=== PATIENT | male | born 1935 | race Caucasian/White ===

== ENCOUNTER → 2016-07-16 | Outpatient (CLI) | payer MEDICARE, BC ==
--- NOTE | 2016-07-16 15:27 | MR ---
EXAMINATION TYPE: MR knee RT wo con DATE OF EXAM: 07/16/2016 11:30 AM COMPARISON: Plain film May 2016 HISTORY: Right knee pain,twisted TECHNIQUE: Multiplanar, multisequence imaging of the right knee is performed without IV contrast. FINDINGS: MEDIAL MENISCUS: Linear increased signal within the posterior horn of the medial meniscus extends to the articular surface. LATERAL MENISCUS: Linear increased signal within the posterior horn of the lateral meniscus also susp ected to extend to the articular surface. CRUCIATE LIGAMENTS: The anterior and posterior cruciate ligaments are intact and unremarkable. COLLATERAL LIGAMENTS: The medial collateral ligament and lateral collateral ligament complex are inta ct and unremarkable. Increased signal present along the medial collateral ligament could be indicativ e of some local strain, suspect there is meniscocapsular separation present, some fluid signal presen t between the meniscus and the medial collateral ligament could possibly represent a meniscal cyst. EXTENSOR MECHANISM: Visualized quadriceps and patellar tendons are intact. EFFUSION: Small joint effusion POPLITEAL CYST: Semimembranosus gastrocnemius cyst is present measuring approximately 3 cm x 1.8 cm x 1 cm. TRICOMPARTMENT SPACES: Osteoarthritic changes are present, there is tricompartmental marginal spurrin g. 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 OTHER: No additional significant abnormality is appreciated. IMPRESSION: Osteoarthritic change. Tears of the medial and lateral meniscus, there may be meniscal cyst medially versus meniscocapsular separation. Additional findings above.
== END | disposition home or self-care (01) ==
LOC: RADMRIMAIN 10:28
PROVIDERS: ATTEND Orthopaedic Surgery
DX: M17.11 Unilateral primary osteoarthritis, right knee (principal); S83.281A Other tear of lateral meniscus, current injury, right knee, initial encounter; S83.241A Other tear of medial meniscus, current injury, right knee, initial encounter

== ENCOUNTER 2016-08-05 06:37 | Day surgery (SDC) | payer MEDICARE, BC ==
[2016-08-03 08:47] VITALS: BMI 29.5
--- NOTE | 2016-08-04 09:20 | HP ---
DATE OF ADMISSION: CHIEF COMPLAINT: Right knee pain. HISTORY OF PRESENT ILLNESS: The patient is an 81-year-old retired gentleman who presents with progressive right knee pain after a previous twisting injury. He has giving way along with stiffness and pain. He has tried medications and an injection with only partial temporary relief. He notes he is significantly limited. PAST MEDICAL HISTORY: Significant for hypercholesterolemia, reflux disease, testicular cancer, aortic aneurysm, macular degeneration. PAST SURGICAL HISTORY: Significant for previous appendectomy in addition to Byrne's cyst resection. CURRENT MEDICATIONS: 1. Simvastatin. 2. Prilosec. 3. Ventolin. 4. Advair. 5. Aspirin. He denies drug allergies. Family history is negative. SOCIAL HISTORY: Significant for social alcohol use. Sixteen-point review of systems otherwise reviewed and is noncontributory. On examination, the patient is approximately 5 feet 8 inches, 200 pounds of mesomorphic habitus. HEENT exam is nonfocal. Neck is supple. He has painless passive motion of the right hip. Straight leg raise is negative. Active motion of the right knee -6 to 135 degrees of flexion. He has a mild effusion. Collaterals are stable, John Paul's negative, Ministerio's elicits medial pain. He is tender about the medial and lateral joint line. His distal neurovascular exam appears to be intact in the right lower extremity. MRI report for the right knee shows evidence of medial and lateral meniscal tears along with medial and patellofemoral compartment osteoarthrosis. IMPRESSION: 1. Right knee internal derangement with medial and lateral meniscal tears, symptomatic. 2. 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 RECOMMENDATIONS: I talked to the patient at length regarding his treatment options. At this point he is having persistent pain and mechanical symptoms despite conservative measures. After thorough discussion of his options, he opts to proceed with surgery. We will plan to proceed with arthroscopic evaluation with possible partial medial and lateral meniscectomies. Risks and benefits are discussed at length in layman terms. We will likely perform that as an outpatient procedure.
[~2016-08-05 06:37] MED LIST: HYDROmorphone 1 MG/ML 1 ML SYRINGE IVP PRN; LACTATED RINGERS 1,000 ML IV SCH; MIDAZOLAM 2 MG/2 ML VIAL IV PRN; ONDANSETRON 4 MG/2 ML VIAL IVP ONE; ceFAZolin 2 GM in SODIUM CHLORIDE 0.9% 100 ML IVPB ONE
[2016-08-05] MEDS ORDERED: LIDOCAINE 1% 20 ML VIAL (10MG/ML) FOR IV START INTRADERMA ONE (06:50)
[2016-08-05 06:57] VITALS: RESP 16
[2016-08-05 07:30] LABS: INR 1.1 (<1.1); Partial Thromboplastin Time 23.2 sec (22.0-30.0); Prothrombin Time 10.7 sec (9.0-12.0)
[2016-08-05] MEDS ORDERED: LIDOCAINE 1% INJ 10MG/ML (20 ML MDV) ONE (07:54)
[2016-08-05] MEDS ORDERED: fentaNYL (PF) 50 MCG/ML 2 ML AMP ONE (07:54)
[2016-08-05] MEDS ORDERED: PROPOFOL 10 MG/ML 20 ML VIAL IV ONE (07:54)
[2016-08-05] MEDS ORDERED: NEOSTIGMINE 1 MG/ML 10 ML VIAL ONE (07:54)
[2016-08-05] MEDS ORDERED: EPINEPHrine (PF) 1 ML in SODIUM CHLORIDE 0.9% IRRIGATIO 3,000 ML IRRIGATION ONE (07:54)
[2016-08-05] MEDS ORDERED: GLYCOPYRROLATE 0.2 MG/ML 2 ML VIAL ONE (07:54)
[2016-08-05] MEDS ORDERED: ROCURONIUM BROMIDE 10 MG/ML 10 ML VIAL IV ONE (07:54)
[2016-08-05] MEDS ORDERED: SUCCINYLCHOLINE CHLORIDE 100 MG/5 ML SYR IV ONE (07:54)
[2016-08-05] MEDS ORDERED: MIDAZOLAM 2 MG/2 ML VIAL ONE (07:54)
--- NOTE | 2016-08-05 08:44 | P.OP ---
Date of Procedure: 08/05/16 Preoperative Diagnosis: Right knee internal derangement Postoperative Diagnosis: Right knee posterior medial meniscal tear/posterior lateral meniscal tear/loose body intercondylar notch 1 x 1 cm/reactive synovitis of the medial and lateral compartments Procedure(s) Performed: Right knee arthroscopic partial medial meniscectomy/partial lateral meniscectomy /loose body removal intercondylar notch/partial synovectomy of the medial and lateral compartments Anesthesia: RADU Surgeon: Edilson Sherman Pathology: none sent Condition: stable Disposition: PACU Indications for Procedure: The patient is an 81-year-old male who presents with progressive right knee pain and mechanical symptoms after previous twisting injury despite conservative measures. He is having persistent symptoms it limited his normal function and activities. He discussion of the risks and benefits of operative intervention versus continued conservative measures was made with the patient. He opted to proceed with surgery. Operative risks to include infection, neurovascular injury, development of blood clots, incomplete resolution of symptoms, possible worsening symptoms and need for subsequent procedures was discussed. Informed consent was obtained. Operative Findings: As below Description of Procedure: The patient was brought to the operating room, and after induction of general anesthesia I examined the right knee. Collaterals were stable, John Paul was negative, and posterior drawer was negative. The right lower extremity was prepped and draped in a normal fashion. A superior lateral portal was made through a 3 mm skin incision superior and lateral to the patella. This was used for outflow. A moderate effusion was encountered. A lateral portal was made through a 5 mm skin incision above the joint line lateral to the patella tendon. Diagnostic arthroscopy was performed. A medial portal was made through a similar incision medial to the patellar tendon above the joint line. On inspection of the medial compartment, he is noted of complex tear involving the posterior horn of the medial meniscus in the white-white junction. This was not amenable to repair. This was debrided back to stable base with straight baskets and a motorized shaver. Grade 3 chondral changes were noted diffusely involving the medial tibial plateau and medial distal femur. Reactive synovitis involving into medial compartment was debrided with a motorized shaver. On inspection of the notch, the anterior cruciate ligament appeared to be intact. There was a loose body adherent to the posterior cruciate ligament measuring 1 x 1 cm. This was debrided with motorized shaver and then removed with a grasper. On inspection of the lateral compartment, and oblique tear of the posterior horn of the lateral meniscus was noted in the white-white junction. This was debrided back to stable base with straight baskets and a motorized shaver. Reactive synovitis involving anterolateral compartment was debrided with motorized shaver. On inspection the patellofemoral articulation, there was chondral fibrillation and degenerative changes however no loose chondral fragments. The gutters were clear debris. The knee was then thoroughly irrigated. The portals were closed with Steri- Strips. A sterile dressing was applied in addition to a compression stocking. The patient was awoken from general anesthesia and transferred to the recovery room in good condition. Blood loss was estimated at 10 mL. No complications were incurred.
[2016-08-05 08:49] VITALS: TEMP 98.8
[2016-08-05 10:27] VITALS: BP 130/80; PULSE 69
== END 2016-08-05 10:59 | disposition home or self-care (01) ==
LOC: OR 06:37
PROVIDERS: ATTEND Orthopaedic Surgery
DX: S83.241A Other tear of medial meniscus, current injury, right knee, initial encounter (principal); S83.281A Other tear of lateral meniscus, current injury, right knee, initial encounter; X50.1XXA Overexertion from prolonged static or awkward postures, initial encounter; M23.41 Loose body in knee, right knee; M65.861 Other synovitis and tenosynovitis, right lower leg; J44.9 Chronic obstructive pulmonary disease, unspecified; Z79.82 Long term (current) use of aspirin; Z79.899 Other long term (current) drug therapy; E78.5 Hyperlipidemia, unspecified; Z79.51 Long term (current) use of inhaled steroids; E78.00 Pure hypercholesterolemia, unspecified; K21.9 Gastro-esophageal reflux disease without esophagitis
CPT/HCPCS: 85610; 85730; 29880; J2250; J2710; J0690; J2405; J0171; J2001; J3010; J0330; J2704

== ENCOUNTER 2017-06-29 12:42 | Observation (INO) | payer MEDICARE, BC ==
[2017-06-29] MEDS ORDERED: ASPIRIN 81 MG PO STA (13:12)
--- NOTE | 2017-06-29 13:15 | ED ---
General Adult HPI - General Chief complaint: Chest Pain Stated complaint: Chest Pain Time Seen by Provider: 06/29/17 13:02 Source: patient, family, RN notes reviewed Mode of arrival: wheelchair Limitations: no limitations - History of Present Illness Initial comments: Patient 82-year-old male who presents emergency room today with a chief complaint of left-sided chest pain. He states he feels pain when he takes deep breath or when he moves his left shoulder above his head. Patient states that he never had pain similar to in the past. Denies any injury or trauma. He states that sitting resting he has no pain. He denies any other complaints or symptoms. Patient denies any recent fever, chills, shortness of breath, back pain, abdominal pain, nausea or vomiting, numbness or tingling, dysuria or hematuria, constipation or diarrhea, headaches or visual changes, or any other complaints. - Related Data Home Medications Medication Instructions Recorded Confirmed Cholecalciferol [Vitamin D3] 2,000 unit PO HS 09/11/15 06/29/17 [place]-3 Fatty Acids/Fish Oil [Fish 1 cap PO HS 09/11/15 06/29/17 Oil 1,000 mg Softgel] Albuterol Inhaler [Ventolin Hfa 1 - 2 puff INHALATION RT-BID PRN 08/05/16 Inhaler] Fluticasone/Salmeterol [Advair 2 puff INHALATION RT-BID PRN 04/22/17 06/29/17 250-50 Diskus] Multivitamins, Thera [Multivitamin 1 tab PO HS 04/22/17 06/29/17 (formulary)] Vits A,C,E/Lutein/Minerals 1 tab PO HS 04/22/17 06/29/17 [Ocuvite with Lutein Tablet] Allergies Allergy/AdvReac Type Severity Reaction Status Date / Time No Known Allergies Allergy Verified 06/29/17 13:25 Review of Systems ROS Statement: Those systems with pertinent positive or pertinent negative responses have been documented in the HPI. ROS Other: All systems not noted in ROS Statement are negative. Past Medical History Past Medical History: Eye Disorder, GERD/Reflux, Hearing Disorder / Deafness, Skin Disorder Additional Past Medical History / Comment(s): mac degeneration, long ago hx. anemia, sinus problems, wart/skin tag/mole removal History of Any Multi-Drug Resistant Organisms: None Reported Past Surgical History: Appendectomy Additional Past Surgical History / Comment(s): deviated septum repair, bakers cyst removed, appy. done 10-01-15, knee scope Past Anesthesia/Blood Transfusion Reactions: No Reported Reaction Past Psychological History: No Psychological Hx Reported Smoking Status: Never smoker Past Alcohol Use History: None Reported Past Drug Use History: None Reported - Past Family History Father History Unknown: Yes Mother History Unknown: Yes Family Medical History: No Reported History General Exam - General Exam Comments Initial Comments: General: The patient is awake and alert, in no distress, and does not appear acutely ill. Eye: Pupils are equal, round and reactive to light, extra-ocular movements are intact. No nystagmus. There is normal conjunctiva bilaterally. No signs of icterus. Ears, nose, mouth and throat: There are moist mucous membranes and no oral lesions. Neck: The neck is supple, there is no tenderness or JVD. Cardiovascular: There is a regular rate and rhythm. No murmur, rub or gallop is appreciated. Respiratory: Lungs are clear to auscultation, respirations are non-labored, breath sounds are equal. No wheezes, stridor, rales, or rhonchi. Gastrointestinal: Soft, non-distended, non-tender abdomen without masses or organomegaly noted. There is no rebound or guarding present. No CVA tenderness. Bowel sounds are unremarkable. Musculoskeletal: Normal ROM, no tenderness. Strength 5/5. Sensation intact. Pulses equal bilaterally 2+. Neurological: A&O x 3. CN II-XII intact, There are no obvious motor or sensory deficits. Coordination appears grossly intact. Speech is normal. Skin: Skin is warm and dry and no rashes or lesions are noted. Psychiatric: Cooperative, appropriate mood & affect, normal judgment. Limitations: no limitations Course Vital Signs 06/29/17 06/29/17 12:43 13:41 Temperature 97.7 F Pulse Rate 65 62 Respiratory 16 18 Rate Blood Pressure 174/103 136/82 O2 Sat by Pulse 98 99 Oximetry Medical Decision Making - Medical Decision Making Patient's labs reviewed here in emergency room are unremarkable. Negative cardiac enzymes. Patient states that symptoms started this morning. Currently pain-free breath times he states he does take a deep breath and feels pain in the left side of the chest wall. Options were discussed with patient about admission. He states he is willing to stay in for serial enzymes. Patient will be admitted. - Lab Data Result diagrams: 06/29/17 13:48 06/29/17 13:48 Lab Results 06/29/17 06/29/17 06/29/17 Range/Units 13:48 13:48 13:48 WBC 5.7 (3.8-10.6) k/uL RBC 5.10 (4.30-5.90) m/uL Hgb 15.1 (13.0-17.5) gm/dL Hct 46.3 (39.0-53.0) % MCV 90.9 (80.0-100.0) fL MCH 29.7 (25.0-35.0) pg MCHC 32.7 (31.0-37.0) g/dL RDW 15.6 H (11.5-15.5) % Plt Count 208 (150-450) k/uL Neutrophils % 53 % Lymphocytes % 33 % Monocytes % 8 % Eosinophils % 3 % Basophils % 1 % Neutrophils # 3.0 (1.3-7.7) k/uL Lymphocytes # 1.8 (1.0-4.8) k/uL Monocytes # 0.5 (0-1.0) k/uL Eosinophils # 0.2 (0-0.7) k/uL Basophils # 0.0 (0-0.2) k/uL PT (9.0-12.0) sec INR (<1.2) APTT (22.0-30.0) sec D-Dimer (<0.60) mg/L FEU Sodium 142 (137-145) mmol/L Potassium 4.2 (3.5-5.1) mmol/L Chloride 103 (98-107) mmol/L Carbon Dioxide 28 (22-30) mmol/L Anion Gap 11 mmol/L BUN 19 (9-20) mg/dL Creatinine 0.79 (0.66-1.25) mg/dL Est GFR (MDRD) Af Amer >60 (>60 ml/min/1.73 sqM) Est GFR (MDRD) Non-Af >60 (>60 ml/min/1.73 sqM) Glucose 74 (74-99) mg/dL Calcium 9.9 (8.4-10.2) mg/dL Magnesium 1.9 (1.6-2.3) mg/dL Total Bilirubin 0.5 (0.2-1.3) mg/dL AST 32 (17-59) U/L ALT 46 (21-72) U/L Alkaline Phosphatase 58 (38-126) U/L Total Creatine Kinase 131 (55-170) U/L CK-MB (CK-2) 2.9 H* (0.0-2.4) ng/mL CK-MB (CK-2) Rel Index 2.2 Troponin I <0.012 (0.000-0.034) ng/mL Total Protein 6.9 (6.3-8.2) g/dL Albumin 4.3 (3.5-5.0) g/dL 06/29/17 Range/Units 13:48 WBC (3.8-10.6) k/uL RBC (4.30-5.90) m/uL Hgb (13.0-17.5) gm/dL Hct (39.0-53.0) % MCV (80.0-100.0) fL MCH (25.0-35.0) pg MCHC (31.0-37.0) g/dL RDW (11.5-15.5) % Plt Count (150-450) k/uL Neutrophils % % Lymphocytes % % Monocytes % % Eosinophils % % Basophils % % Neutrophils # (1.3-7.7) k/uL Lymphocytes # (1.0-4.8) k/uL Monocytes # (0-1.0) k/uL Eosinophils # (0-0.7) k/uL Basophils # (0-0.2) k/uL PT 10.1 (9.0-12.0) sec INR 1.0 (<1.2) APTT 24.0 (22.0-30.0) sec D-Dimer 0.35 (<0.60) mg/L FEU Sodium (137-145) mmol/L Potassium (3.5-5.1) mmol/L Chloride (98-107) mmol/L Carbon Dioxide (22-30) mmol/L Anion Gap mmol/L BUN (9-20) mg/dL Creatinine (0.66-1.25) mg/dL Est GFR (MDRD) Af Amer (>60 ml/min/1.73 sqM) Est GFR (MDRD) Non-Af (>60 ml/min/1.73 sqM) Glucose (74-99) mg/dL Calcium (8.4-10.2) mg/dL Magnesium (1.6-2.3) mg/dL Total Bilirubin (0.2-1.3) mg/dL AST (17-59) U/L ALT (21-72) U/L Alkaline Phosphatase (38-126) U/L Total Creatine Kinase (55-170) U/L CK-MB (CK-2) (0.0-2.4) ng/mL CK-MB (CK-2) Rel Index Troponin I (0.000-0.034) ng/mL Total Protein (6.3-8.2) g/dL Albumin (3.5-5.0) g/dL Disposition Clinical Impression: Chest pain Disposition: ADMITTED IP TO THIS [facility] Condition: Good Instructions: Chest Pain (ED) Referrals: Nonstaff,Physician [REFERRING] - 1-2 days Time of Disposition: 15:14
[2017-06-29 14:00] LABS: Basophils % (A) 1 %; Eosinophils # (A) 0.2 k/uL (0-0.7); Eosinophils % (A) 3 %; HCT 46.3 % (39.0-53.0); HGB 15.1 gm/dL (13.0-17.5); Lymphocytes # (A) 1.8 k/uL (1.0-4.8); Lymphocytes % (A) 33 %; MCH 29.7 pg (25.0-35.0); MCHC 32.7 g/dL (31.0-37.0); MCV 90.9 fL (80.0-100.0); Mean Platelet Volume 6.9; Monocytes # (A) 0.5 k/uL (0-1.0); Monocytes % (A) 8 %; Neutrophils % (A) 53 %; Platelet Count 208 k/uL (150-450); RDW 15.6 % (11.5-15.5); WBC 5.7 k/uL (3.8-10.6)
[2017-06-29 14:14] LABS: ALT 46 U/L (21-72); AST 32 U/L (17-59); Albumin 4.3 g/dL (3.5-5.0); Alkaline Phosphatase 58 U/L (38-126); Anion Gap 11 mmol/L; Blood Urea Nitrogen 19 mg/dL (9-20); Calcium 9.9 mg/dL (8.4-10.2); Carbon Dioxide 28 mmol/L (22-30); Chloride 103 mmol/L (98-107); Glucose 74 mg/dL (74-99); Magnesium 1.9 mg/dL (1.6-2.3); Potassium 4.2 mmol/L (3.5-5.1); Sodium 142 mmol/L (137-145); Total Bilirubin 0.5 mg/dL (0.2-1.3); Total Protein 6.9 g/dL (6.3-8.2)
[2017-06-29 14:19] LABS: Creatine Kinase 131 U/L (55-170)
--- NOTE | 2017-06-29 14:23 | XR ---
EXAMINATION TYPE: XR chest 2V DATE OF EXAM: 06/29/2017 COMPARISON: Prior chest x-ray 04/22/2017 HISTORY: Chest pain TECHNIQUE: Frontal and lateral views of the chest are obtained. FINDINGS: There are overlying cardiac leads. Patient is rotated, there may be spinal curvature. No e vident airspace disease, pneumothorax, or pleural effusion. Cardiac mediastinal silhouette, pulmonary vascularity and jourdan are stable accounting for differences in technique. There is eventration of the hemidiaphragms. IMPRESSION: No acute cardiopulmonary process.
[2017-06-29 14:32] LABS: Troponin I <0.012 ng/mL (0.000-0.034)
[2017-06-29 14:37] LABS: Creatine Kinase MB 2.9 ng/mL (0.0-2.4)
[2017-06-29 14:43] LABS: D-Dimer 0.35 mg/L FEU (<0.60)
[2017-06-29 14:47] LABS: Prothrombin Time 10.1 sec (9.0-12.0)
[2017-06-29] MEDS ORDERED: NALOXONE 0.4 MG/ML 1 ML VIAL IV PRN (15:15)
[2017-06-29] MEDS ORDERED: SODIUM CHLORIDE 0.9% 1,000 ML IV ONE (15:15)
[2017-06-29] MEDS ORDERED: NITROGLYCERIN SL TABS 0.4 MG TAB SUBLINGUAL PRN (15:22)
[2017-06-29 20:08] LABS: Creatine Kinase 113 U/L (55-170)
[2017-06-29 20:21] LABS: Creatine Kinase MB 2.3 ng/mL (0.0-2.4); Troponin I <0.012 ng/mL (0.000-0.034)
[2017-06-29] MEDS: HEPARIN SODIUM,PORCINE 5,000 UNIT/ML 1 ML VIAL SQ SCH (23:45)
[2017-06-30 02:09] LABS: Cholesterol 242 mg/dL (<200); HDL Cholesterol 51 mg/dL (40-60); LDL Cholesterol,Calculated 153 mg/dL (0-99); Triglycerides 188 mg/dL (<150)
[2017-06-30 02:12] LABS: Creatine Kinase 108 U/L (55-170)
[2017-06-30 02:25] LABS: Creatine Kinase MB 2.4 ng/mL (0.0-2.4); Troponin I <0.012 ng/mL (0.000-0.034)
[2017-06-30 07:51] VITALS: RESP 18
[2017-06-30] MEDS ORDERED: ASPIRIN 325 MG TAB PO SCH (09:00)
--- NOTE | 2017-06-30 09:38 | ECHOF ---
Referral Reason:chest pain MEASUREMENTS -------- HEIGHT: 175.3 cm WEIGHT: 91.6 kg BP: 149/77 RVIDd: 2.7 cm (< 3.3) IVSd: 1.1 cm (0.6 - 1.1) LVIDd: 4.3 cm (3.9 - 5.3) LVPWd: 1.0 cm (0.6 - 1.1) IVSs: 1.9 cm LVIDs: 2.7 cm LVPWs: 1.5 cm LA Diam: 3.3 cm (2.7 - 3.8) LAESV Index (A-L): 17.75 ml/m Ao Diam: 3.4 cm (2.0 - 3.7) AV Cusp: 1.7 cm (1.5 - 2.6) MV EXCURSION: 11.106 mm (> 18.000) MV EF SLOPE: 49 mm/s (70 - 150) EPSS: 1.2 cm MV E Abdoulaye: 0.76 m/s MV DecT: 239 ms MV A Abdoulaye: 0.90 m/s MV E/A Ratio: 0.84 FINDINGS -------- Sinus rhythm. This was a technically adequate study. The left ventricular size is normal. Left ventricular wall thickness is normal. Overall left vent ricular systolic function is normal with, an EF between 55 - 60 %. The right ventricle is normal in size. Normal LA size by volume 22+/-6 ml/m2. The right atrium is normal in size. There is mild aortic valve sclerosis. Trace to mild aortic regurgitation. The mitral valve is normal. The tricuspid valve appears structurally normal. The pulmonic valve was not well visualized. The aortic root size is normal. Normal inferior vena cava with normal inspiratory collapse consistent with estimated right atrial pre ssure of 5 mmHg. There is no pericardial effusion. CONCLUSIONS -------- 1. Sinus rhythm. 2. This was a technically adequate study. 3. The left ventricular size is normal. 4. Left ventricular wall thickness is normal. 5. Overall left ventricular systolic function is normal with, an EF between 55 - 60 %. 6. The right ventricle is normal in size. 7. Normal LA size by volume 22+/-6 ml/m2. 8. The right atrium is normal in size. 9. There is mild aortic valve sclerosis. 10. Trace to mild aortic regurgitation. 11. The mitral valve is normal. 12. The tricuspid valve appears structurally normal. 13. The pulmonic valve was not well visualized. 14. The aortic root size is normal. 15. Normal inferior vena cava with normal inspiratory collapse consistent with estimated right atrial pressure of 5 mmHg. 16. There is no pericardial effusion. [employer]: Seema Goldstein RDCS
[2017-06-30] MEDS ORDERED: ALBUTEROL NEBULIZED 2.5 MG/3 ML INHALATION PRN (09:49)
[2017-06-30] MEDS ORDERED: ASPIRIN 81 MG PO SCH (10:30)
[2017-06-30] MEDS: HEPARIN SODIUM,PORCINE 5,000 UNIT/ML 1 ML VIAL SQ SCH (10:48)
[2017-06-30 11:51] VITALS: BP 137/82; PULSE 76; TEMP 97.6
[2017-06-30] MEDS ORDERED: LISINOPRIL 10 MG TAB PO SCH (12:00)
[2017-06-30] MEDS ORDERED: ATORVASTATIN 40 MG TAB PO SCH (12:00)
--- NOTE | 2017-06-30 12:02 | P.CRDCN ---
History of Present Illness Consult date: 06/30/17 Consult reason: chest pain History of present illness: Mr Hill is a pleasant 7-year-old male past medical history significant for gastroesophageal reflux disease. He denies history of coronary artery disease and has never seen a cotton wringer for any reason. He does acknowledge that his cholesterol is elevated but he only takes fish oil. We have been asked to see him in consultation for complaints of a sharp pain in the left anterior chest wall. The pain is intermittent in nature, worse with deep inspiration and worse with movement of the arm and raising of the shoulder. The pain doesn't radiate anywhere and has no associated symptoms of shortness of breath, dizziness, palpitations, diaphoresis, nausea or vomiting. He has had no further episodes since admission. He is fairly active with daily walks of his dog and denies ever having exertinal chest pain. EKG reveals sinus bradycardia heart rate [address] or T-wave abnormalities. Chest xray is negative for an acute cardiopulmonary process. Laboratory data reviewed, hemoglobin 15.1, platelets 208, d-dimer negative, potassium 4.2, magnesium 1.9, creatinine 0.79, cardiac enzymes negative 3. LDL 153, HDL 51. He takes no cardiac medications. There are no old records to review. Review of Systems At the time of my exam: CONSTITUTIONAL: Denies fever. Denies chills. EYES: Denies blurred vision. Denies vision changes. Denies eye pain. EARS, NOSE, MOUTH & THROAT: Denies headache. Denies sore throat. Denies ear pain. CARDIOVASCULAR: Denies chest pain. Denies shortness of breath. Denies orthopnea. Denies PND. Denies palpitations. RESPIRATORY: Denies cough. GASTROINTESTINAL: Denies abdominal pain. Denies diarrhea. Denies constipation. Denies nausea. Denies vomiting. MUSCULOSKELETAL: Denies myalgias. INTEGUMENTARY: Denies pruitis. Denies rash. NEUROLOGIC: Denies numbness. Denies tingling. Denies weakness. PSYCHIATRIC: Denies anxiety. Denies depression. ENDOCRINE: Denies fatigue. Denies weight change. Denies polydipsia. Denies polyurina. GENITOURINARY: Denies burning, hematuria or urgency with micturation. HEMATOLOGIC: Denies history of anemia. Denies bleeding. Past Medical History Past Medical History: Eye Disorder, GERD/Reflux, Hearing Disorder / Deafness, Skin Disorder Additional Past Medical History / Comment(s): mac degeneration, long ago hx. anemia, sinus problems, wart/skin tag/mole removal, uti/sepsis 2017, falls,[place]- does'nt have hearing aids with him, History of Any Multi-Drug Resistant Organisms: None Reported Past Surgical History: Appendectomy, Cholecystectomy Additional Past Surgical History / Comment(s): deviated septum repair, bakers cyst removed, appy. done 10-01-15, knee arthroscopic partial meniscectomy Past Anesthesia/Blood Transfusion Reactions: No Reported Reaction Smoking Status: Never smoker - Past Family History Father History Unknown: Yes Mother History Unknown: Yes Family Medical History: No Reported History Additional Family Medical History / Comment(s): " from old age-was in a ecf Medications and Allergies Home Medications Medication Instructions Recorded Confirmed Type Cholecalciferol [Vitamin D3] 2,000 unit PO HS 09/11/15 06/29/17 History [place]-3 Fatty Acids/Fish Oil [Fish 1 cap PO HS 09/11/15 06/29/17 History Oil 1,000 mg Softgel] Albuterol Inhaler [Ventolin Hfa 1 - 2 puff INHALATION RT-BID PRN 08/05/16 History Inhaler] Fluticasone/Salmeterol [Advair 2 puff INHALATION RT-BID PRN 04/22/17 06/29/17 History 250-50 Diskus] Multivitamins, Thera [Multivitamin 1 tab PO HS 04/22/17 06/29/17 History (formulary)] Vits A,C,E/Lutein/Minerals 1 tab PO HS 04/22/17 06/29/17 History [Ocuvite with Lutein Tablet] Allergies Allergy/AdvReac Type Severity Reaction Status Date / Time No Known Allergies Allergy Verified 06/29/17 13:25 Physical Exam Vitals: Vital Signs Temp Pulse Pulse Resp BP BP Pulse Ox 06/30/17 07:50 97.4 F L 59 L 18 150/84 94 L 06/30/17 04:00 16 06/30/17 03:41 97.6 F 61 16 151/76 97 06/30/17 00:00 97.6 F 66 16 155/89 94 L 06/29/17 23:54 16 02/01/18 21:25 97.4 F L 61 16 154/86 97 06/29/17 20:40 97.7 F 57 L 18 142/75 98 06/29/17 19:16 97.7 F 60 18 140/77 98 06/29/17 17:42 98.0 F 65 18 153/80 98 06/29/17 16:11 62 18 120/65 98 06/29/17 15:15 59 L 18 149/77 98 06/29/17 13:41 62 18 136/82 99 06/29/17 12:43 97.7 F 65 16 174/103 98 Intake and Output 06/29/17 06/30/17 06/30/17 22:59 06:59 14:59 Other: # Voids 1 Weight 91.626 kg Blood pressure 151/76 heart rate 61 afebrile GENERAL: This is a 82-year-old male in no apparent distress at the time of my examination. HEENT: Head is atraumatic, normocephalic. Pupils are equal, round. Sclerae anicteric. Conjunctivae are clear. Mucous membranes of the mouth are moist. Neck is supple. There is no jugular venous distention. No carotid bruit is heard. LUNGS: Clear to auscultation no wheezes, rales or rhonchi. No chest wall tenderness is noted with deep breathing. HEART: Regular rate and rhythm with faint systolic ejection murmur, no rubs or gallops. S1 and S2 heard. ABDOMEN: Soft, nontender. Bowel sounds are heard. No organomegaly noted. EXTREMITIES: No evidence of peripheral edema and no calf tenderness noted. VASCULAR: Radial and dorsalis pedis pulses palpated, no evidence of clubbing. NEUROLOGIC: Patient is awake, alert and oriented x3. Results 06/29/17 13:48 06/29/17 13:48 Cardiac Enzymes 06/29/17 06/29/17 06/29/17 Range/Units 13:48 13:48 19:23 AST 32 (17-59) U/L CK-MB (CK-2) 2.9 H* 2.3 (0.0-2.4) ng/mL Troponin I <0.012 <0.012 (0.000-0.034) ng/mL 06/30/17 Range/Units 01:40 AST (17-59) U/L CK-MB (CK-2) 2.4 (0.0-2.4) ng/mL Troponin I <0.012 (0.000-0.034) ng/mL Coagulation 06/29/17 Range/Units 13:48 PT 10.1 (9.0-12.0) sec APTT 24.0 (22.0-30.0) sec Lipids 06/30/17 Range/Units 01:40 Triglycerides 188 H (<150) mg/dL Cholesterol 242 H (<200) mg/dL HDL Cholesterol 51 (40-60) mg/dL CBC 06/29/17 Range/Units 13:48 WBC 5.7 (3.8-10.6) k/uL RBC 5.10 (4.30-5.90) m/uL Hgb 15.1 (13.0-17.5) gm/dL Hct 46.3 (39.0-53.0) % Plt Count 208 (150-450) k/uL Comprehensive Metabolic Panel 06/29/17 Range/Units 13:48 Sodium 142 (137-145) mmol/L Potassium 4.2 (3.5-5.1) mmol/L Chloride 103 (98-107) mmol/L Carbon Dioxide 28 (22-30) mmol/L BUN 19 (9-20) mg/dL Creatinine 0.79 (0.66-1.25) mg/dL Glucose 74 (74-99) mg/dL Calcium 9.9 (8.4-10.2) mg/dL AST 32 (17-59) U/L ALT 46 (21-72) U/L Alkaline Phosphatase 58 (38-126) U/L Total Protein 6.9 (6.3-8.2) g/dL Albumin 4.3 (3.5-5.0) g/dL Current Medications Generic Name Dose Route Start Last Admin Trade Name Freq PRN Reason Stop Dose Admin Heparin Sodium (Porcine) 5,000 unit 06/29/17 21:00 06/29/17 23:45 Heparin SQ 5,000 unit Q12HR HEBER Administration Sodium Chloride 1,000 mls @ 20 mls/hr 06/29/17 15:15 Saline 0.9% IV 06/30/17 15:14 .Q24H ONE Naloxone HCl 0.2 mg 06/29/17 15:15 Narcan IV Q2M PRN Opioid Reversal Nitroglycerin 0.4 mg 06/29/17 15:22 Nitrostat SUBLINGUAL Q5M PRN Chest Pain Intake and Output 06/29/17 06/30/17 06/30/17 22:59 06:59 14:59 Other: # Voids 1 Weight 91.626 kg 06/29/17 13:48 06/29/17 13:48 Assessment and Plan Assessment: ASSESSMENT 1. Pleuritic chest pain 2. Dyslipidemia 3. Hypertension PLAN Obtain 2D echocardiogram and doppler study to assess cardiac structure and function. Get the patient up and ambulating in the halls, assess for further symptoms of chest pain. Start on lisinopril 10 mg daily, aspirin 81 mg daily and atorvastatin 40 mg daily. Follow up with Dr. Sher in 3-4 weeks. Thank you kindly for this consultation. Nurse Practitioner note has been reviewed, I agree with a documented findings and plan of care. Patient was seen and examined.
--- NOTE | 2017-06-30 14:12 | P.HPIM ---
History of Present Illness H&P Date: 06/30/17 Chief Complaint: Chest pain HISTORY AND PHYSICAL AND DISCHARGE SUMMARY: This is an 82-year-old male patient of Dr. Man with past medical history of gastroesophageal reflux disease, hearing impairment, macular degeneration. Patient states that he woke up and he had left-sided chest pain that was over his breast area he noticed it when he was getting out of bed. It hurt when he took a deep breath. He went to [facility] and they sent him into the hospital for evaluation. He states his pain is much better today. He denies any cough, fever, radiation of the pain, and edema. Patient came into [facility] emergency center for evaluation and placed on the observation unit. Troponins have been negative on 3 draws. Echocardiogram reveals EF of 55-60% with mild aortic valve sclerosis, mild aortic regurgitation. Patient was seen by cardiology and started on lisinopril for hypertension and atorvastatin and aspirin. Patient has been cleared for discharge home with plan for follow-up with Dr. Sher. Patient will be discharged home today in stable condition. Patient and his state that he was pushing a snowblower the day before the chest pain started. Discharge Medication List Cholecalciferol [Vitamin D3] 2,000 unit PO HS 09/11/15 [History] [place]-3 Fatty Acids/Fish Oil [Fish Oil 1,000 mg Softgel] 1 cap PO HS 09/11/15 [ History] Albuterol Inhaler [Ventolin Hfa Inhaler] 1 - 2 puff INHALATION RT-BID PRN [History] Fluticasone/Salmeterol [Advair 250-50 Diskus] 2 puff INHALATION RT-BID PRN 04/22 [History] Multivitamins, Thera [Multivitamin (formulary)] 1 tab PO HS 04/22/17 [History] Vits A,C,E/Lutein/Minerals [Ocuvite with Lutein Tablet] 1 tab PO HS 04/22/17 [ History] Aspirin 81 mg PO DAILY chew 06/30/17 [Rx] Atorvastatin [Lipitor] 40 mg PO HS #30 tab 06/30/17 [Rx] Lisinopril [Zestril] 10 mg PO DAILY #30 tab 06/30/17 [Rx] Review of Systems All systems: negative Constitutional: Denies chills, Denies fever Eyes: denies blurred vision, denies pain Ears, nose, mouth and throat: Denies headache, Denies sore throat Cardiovascular: Reports chest pain, Denies shortness of breath Respiratory: Denies cough Gastrointestinal: Denies abdominal pain, Denies diarrhea, Denies nausea, Denies vomiting Musculoskeletal: Denies myalgias Integumentary: Denies pruritus, Denies rash Neurological: Denies numbness, Denies weakness Psychiatric: Denies anxiety, Denies depression Endocrine: Denies fatigue, Denies weight change Past Medical History Past Medical History: Eye Disorder, GERD/Reflux, Hearing Disorder / Deafness, Skin Disorder Additional Past Medical History / Comment(s): mac degeneration, long ago hx. anemia, sinus problems, wart/skin tag/mole removal, uti/sepsis 2017, falls,[place]- does'nt have hearing aids with him, History of Any Multi-Drug Resistant Organisms: None Reported Past Surgical History: Appendectomy, Cholecystectomy Additional Past Surgical History / Comment(s): deviated septum repair, bakers cyst removed, appy. done 10-01-15, knee arthroscopic partial meniscectomy Past Anesthesia/Blood Transfusion Reactions: No Reported Reaction Smoking Status: Never smoker - Past Family History Father History Unknown: Yes Additional Family Medical History / Comment(s): Father in his 60s from a head injury secondary to a fall. Mother History Unknown: Yes Family Medical History: No Reported History Additional Family Medical History / Comment(s): Mother from old age in her 90s. Brother(s) Additional Family Medical History / Comment(s): Patient is a total of 4 brothers , one after falling off a motor home. 3 are alive and patient is not aware of any medical problems. Sister(s) Additional Family Medical History / Comment(s): Patient has 1 sister with no known medical problems Daughter(s) Additional Family Medical History / Comment(s): Patient has 1 daughter and 2 sons with no major medical problems. Medications and Allergies Home Medications Medication Instructions Recorded Confirmed Type Cholecalciferol [Vitamin D3] 2,000 unit PO HS 09/11/15 06/29/17 History [place]-3 Fatty Acids/Fish Oil [Fish 1 cap PO HS 09/11/15 06/29/17 History Oil 1,000 mg Softgel] Albuterol Inhaler [Ventolin Hfa 1 - 2 puff INHALATION RT-BID PRN 08/05/16 History Inhaler] Fluticasone/Salmeterol [Advair 2 puff INHALATION RT-BID PRN 04/22/17 06/29/17 History 250-50 Diskus] Multivitamins, Thera [Multivitamin 1 tab PO HS 04/22/17 06/29/17 History (formulary)] Vits A,C,E/Lutein/Minerals 1 tab PO HS 04/22/17 06/29/17 History [Ocuvite with Lutein Tablet] Aspirin 81 mg PO DAILY chew 06/30/17 Rx Atorvastatin [Lipitor] 40 mg PO HS #30 tab 06/30/17 Rx Lisinopril [Zestril] 10 mg PO DAILY #30 tab 06/30/17 Rx Allergies Allergy/AdvReac Type Severity Reaction Status Date / Time No Known Allergies Allergy Verified 06/29/17 13:25 Physical Exam Vitals: Vital Signs Temp Pulse Pulse Resp BP BP Pulse Ox 06/30/17 11:50 97.6 F 76 18 137/82 95 06/30/17 07:50 97.4 F L 59 L 18 150/84 94 L 06/30/17 04:00 16 06/30/17 03:41 97.6 F 61 16 151/76 97 06/30/17 00:00 97.6 F 66 16 155/89 94 L 06/29/17 23:54 16 06/29/17 21:25 97.4 F L 61 16 154/86 97 06/29/17 20:40 97.7 F 57 L 18 142/75 98 06/29/17 19:16 97.7 F 60 18 140/77 98 06/29/17 17:42 98.0 F 65 18 153/80 98 06/29/17 16:11 62 18 120/65 98 06/29/17 15:15 59 L 18 149/77 98 06/29/17 13:41 62 18 136/82 99 Intake and Output 06/29/17 06/30/17 06/30/17 22:59 06:59 14:59 Other: # Voids 1 Weight 91.626 kg Gen: This is a 82-year-old male. He is sitting up in Center bed eating his lunch and appears to be in no acute distress. HEENT: Head is atraumatic, normocephalic. Pupils equal, round. Sclerae is anicteric. NECK: Supple. No JVD. No lymphadenopathy. No thyromegaly. LUNGS: Clear to auscultation. No wheezes or rhonchi. No intercostal retractions. HEART: Regular rate and rhythm. Systolic murmur. ABDOMEN: Soft. Bowel sounds are present. No masses. No tenderness. EXTREMITIES: No pedal edema. No calf tenderness. NEUROLOGICAL: Patient is awake, alert and oriented x3. Cranial nerves 2 through 12 are grossly intact. 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 2. Hyperlipidemia. 3. Hypertension. 4. GERD. Patient placement in the observation unit. Discharge plan: Return home Impression and plan of care have been directed as dictated by the signing physician. Hui Ortega nurse practitioner acting as scribe for signing physician.
== END 2017-06-30 13:25 | disposition home or self-care (01) ==
LOC: EC 12:42 → 3OBS 15:15
PROVIDERS: ADMIT Family Medicine; ATTEND Family Medicine
DX: R07.89 Other chest pain (principal); I10 Essential (primary) hypertension; E78.5 Hyperlipidemia, unspecified; K21.9 Gastro-esophageal reflux disease without esophagitis; H91.90 Unspecified hearing loss, unspecified ear; H35.30 Unspecified macular degeneration; Z79.51 Long term (current) use of inhaled steroids; Z79.899 Other long term (current) drug therapy
CPT/HCPCS: 99285 ×2; 96372; 36415; 93005; 93306; 85379; 80061; 80053; 82550 ×2; 82553 ×2; 83735; 84484 ×2; 85025; 85610; 85730; 71046; G0378 ×2; J1644

== ENCOUNTER 2017-08-25 06:09 | Day surgery (SDC) | payer MEDICARE, BC ==
[2017-08-24 08:23] VITALS: BMI 31.1
[~2017-08-25 06:09] MED LIST changes: +ALPRAZolam 0.25 MG TAB PO PRN; +ASPIRIN 325 MG TAB PO ONE; -HYDROmorphone 1 MG/ML 1 ML SYRINGE IVP PRN; -LACTATED RINGERS 1,000 ML IV SCH; -MIDAZOLAM 2 MG/2 ML VIAL IV PRN; +NITROGLYCERIN SL TABS 0.4 MG TAB SUBLINGUAL PRN; -ONDANSETRON 4 MG/2 ML VIAL IVP ONE; +SODIUM CHLORIDE 0.9% 1,000 ML in EMPTY BAG 1 BAG IV ONE; -ceFAZolin 2 GM in SODIUM CHLORIDE 0.9% 100 ML IVPB ONE
[2017-08-25] MEDS ORDERED: ASPIRIN 81 MG ONE (06:53)
[2017-08-25] MEDS ORDERED: HEPARIN SODIUM 1,000 UN/ML (10ML VL) ONE ×2 (07:12→08:42)
[2017-08-25] MEDS ORDERED: LIDOCAINE 2% INJ 20 MG/ML (20 ML MDV) ONE (07:12)
[2017-08-25] MEDS ORDERED: MIDAZOLAM 2 MG/2 ML VIAL ONE (07:12)
[2017-08-25] MEDS ORDERED: VERAPAMIL 2.5 MG/ML 2 ML AMP ONE (07:12)
[2017-08-25 07:18] LABS: Basophils % (A) 1 %; Eosinophils # (A) 0.2 k/uL (0-0.7); Eosinophils % (A) 3 %; HCT 43.6 % (39.0-53.0); HGB 14.8 gm/dL (13.0-17.5); Lymphocytes # (A) 1.6 k/uL (1.0-4.8); Lymphocytes % (A) 28 %; MCH 29.5 pg (25.0-35.0); Mean Platelet Volume 6.9; Monocytes # (A) 0.5 k/uL (0-1.0); Monocytes % (A) 8 %; Neutrophils # (A) 3.4 k/uL (1.3-7.7); Neutrophils % (A) 60 %; Platelet Count 207 k/uL (150-450); RBC 5.02 m/uL (4.30-5.90); RDW 14.3 % (11.5-15.5); WBC 5.7 k/uL (3.8-10.6)
[2017-08-25 07:30] LABS: Anion Gap 11 mmol/L; Blood Urea Nitrogen 20 mg/dL (9-20); Calcium 9.5 mg/dL (8.4-10.2); Carbon Dioxide 26 mmol/L (22-30); Chloride 107 mmol/L (98-107); Glucose 103 mg/dL (74-99); Sodium 144 mmol/L (137-145)
[2017-08-25] MEDS: MIDAZOLAM 2 MG/2 ML VIAL IVP ONE ×2 (07:59→08:19)
[2017-08-25] MEDS ORDERED: LIDOCAINE 2% INJ 20 MG/ML SQ ONE (08:01)
[2017-08-25] MEDS: VERAPAMIL SYRINGE (5 MG/10 ML) INTRAARTER ONE ×2 (08:06→08:43)
[2017-08-25] MEDS ORDERED: HEPARIN SODIUM 1,000 UN/ML (10ML VL) IV ONE ×2 (08:07→08:43)
[2017-08-25] MEDS ORDERED: CLOPIDOGREL 75 MG TAB ONE (08:21)
[2017-08-25] MEDS ORDERED: CLOPIDOGREL 75 MG TAB PO ONE (08:25)
[2017-08-25] MEDS ORDERED: NITROGLYCERIN 1000MCG/10ML SYRINGE INTRACORON ONE (08:34)
[2017-08-25] MEDS ORDERED: IOPAMIDOL-370 125ML BTL INJ ONE (08:43)
[2017-08-25] MEDS ORDERED: RX INFO: IV CONTRAST WAS GIVEN 1 EACH MISC MISCELLANE PRN (08:52)
[2017-08-25] MEDS ORDERED: MAG HYDROX/AL HYDROX/SIMETH 30 ML CUP PO PRN (08:52)
[2017-08-25] MEDS ORDERED: ZOLPIDEM 5 MG TAB PO PRN (08:52)
[2017-08-25] MEDS ORDERED: NITROGLYCERIN SL TABS 0.4 MG TAB SUBLINGUAL PRN (08:52)
[2017-08-25] MEDS ORDERED: ATROPINE SULFATE 0.1 MG/ML 10ML SYRINGE IV PRN (08:52)
[2017-08-25] MEDS ORDERED: SODIUM CHLORIDE 0.9% 1,000 ML IV SCH (09:00)
[2017-08-25] MEDS ORDERED: ASPIRIN 81 MG PO SCH (09:00)
--- NOTE | 2017-08-25 09:37 | LTR ---
August 25, 2017 Re: Ned Bernalbryantanurag Dear Dr. Man: Mr. Ned Hill was experiencing chest discomfort and underwent a stress test, came in to be abnormal. 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 I want to thank you for allowing me to participate in his care and please do not hesitate to call if you have any question or concern. Sincerely, MD DES Husain / JASON: [id number] /
[2017-08-25] MEDS ORDERED: hydrALAZINE HCL 20 MG/ML 1 ML VIAL IVP STA (09:46)
[2017-08-25] MEDS ORDERED: LISINOPRIL 10 MG TAB PO STA (13:50)
[2017-08-25] MEDS: LISINOPRIL 10 MG TAB PO SCH (13:59)
[2017-08-25] MEDS: SYMBICORT 80-4.5 MCG INHALER INHALATION SCH (20:26)
[2017-08-25] MEDS ORDERED: CHOLECALCIFEROL 1,000 UNIT TAB PO SCH (21:00)
[2017-08-25] MEDS ORDERED: MULTIVITAMINS, THERA 1 EACH TAB PO SCH (21:00)
[2017-08-25] MEDS ORDERED: ATORVASTATIN 40 MG TAB PO SCH (21:00)
[2017-08-25] MEDS ORDERED: NON-FORMULARY DRUG (Omega-3 Fatty Acids/Fish Oil [Fish Oil 1,000 Mg Softgel] 1,000 MG) PO SCH (21:00)
[2017-08-25] MEDS ORDERED: VIT A,C & E-LUTEIN-MINERALS 1 EACH TAB PO SCH (21:00)
[2017-08-26 06:11] LABS: Basophils % (A) 0 %; Eosinophils # (A) 0.1 k/uL (0-0.7); Eosinophils % (A) 2 %; HCT 42.5 % (39.0-53.0); HGB 14.2 gm/dL (13.0-17.5); Lymphocytes # (A) 1.4 k/uL (1.0-4.8); Lymphocytes % (A) 24 %; MCH 29.2 pg (25.0-35.0); MCHC 33.3 g/dL (31.0-37.0); MCV 87.9 fL (80.0-100.0); Mean Platelet Volume 6.8; Monocytes # (A) 0.5 k/uL (0-1.0); Monocytes % (A) 8 %; Neutrophils # (A) 3.8 k/uL (1.3-7.7); Neutrophils % (A) 64 %; Platelet Count 193 k/uL (150-450); RBC 4.84 m/uL (4.30-5.90); RDW 14.2 % (11.5-15.5)
[2017-08-26 06:25] LABS: Anion Gap 11 mmol/L; Blood Urea Nitrogen 13 mg/dL (9-20); Calcium 9.9 mg/dL (8.4-10.2); Carbon Dioxide 29 mmol/L (22-30); Chloride 105 mmol/L (98-107); Glucose 100 mg/dL (74-99); Potassium 4.7 mmol/L (3.5-5.1); Sodium 145 mmol/L (137-145)
[2017-08-26] MEDS: LISINOPRIL 10 MG TAB PO SCH (08:51)
[2017-08-26] MEDS ORDERED: ASPIRIN 325 MG TAB PO SCH (09:00)
[2017-08-26] MEDS ORDERED: CLOPIDOGREL 75 MG TAB PO SCH (09:00)
--- NOTE | 2017-08-26 09:17 | DS ---
DISCHARGE SUMMARY ADMISSION DATE: August 25, 2017. DISCHARGE DATE: August 26, 2017 BRIEF HISTORY: This is a pleasant 82-year-old gentleman with hypertension and dyslipidemia who was experiencing exertional shortness of breath. He underwent a myocardial perfusion imaging stress test and that revealed ischemia. Subsequently underwent heart catheterization yesterday and that revealed critical disease involving the left circumflex, which was stented with good angiographic results. The procedure was performed from the right radial artery. The patient is going to be discharged home on dual anti-platelet therapy as well as a statin and I will follow up with the patient next week in the office as an outpatient. MMODL / IJN: [id number] /
[2017-08-26 09:40] VITALS: BP 140/75; PULSE 77; RESP 16; TEMP 96.9
[2017-08-26] MEDS: SYMBICORT 80-4.5 MCG INHALER INHALATION SCH (11:38)
--- NOTE | 2017-08-28 15:34 | CC ---
CARDIAC CATHETERIZATION REPORT DATE OF SERVICE: 08/25/2017 PERFORMING PHYSICIAN: Cliff Sher MD, Java Mobile Developer. PROCEDURE PERFORMED: 1. Selective right and left coronary angiogram. 2. Left heart catheterization. 3. Successful stenting of the mid left circumflex using 3.0 x 15 mm Xience GERALD with good angiographic results. INDICATION: This is a pleasant 82-year-old gentleman who was admitted to the hospital recently with chest discomfort and was ruled out for acute coronary event. He underwent a myocardial perfusion imaging stress test and that revealed ischemia and in view of that, a heart catheterization was recommended. APPROACH: Right radial artery. COMPLICATION: None. LEVEL OF SEDATION: Moderate sedation length of 45 minutes. PROCEDURE DESCRIPTION: After obtaining an informed consent, the patient was brought to the Cardiac [facility]. The right radial artery was cannulated using micropuncture technique, the micropuncture wire passed easily, then I placed a 6-[place] sheath in the right radial artery . After that, I gave the patient 2 mg of verapamil IA and 10,000 units of heparin IV. Subsequently, I did selective right and left coronary angiogram using JR4 and JL3.5 catheters. After that, I did left heart catheterization using 6-[place] pigtail catheter. After that, I did intervene on the left circumflex. Please see a separate paragraph for that. SELECTIVE CORONARY ANGIOGRAM: 1. The RCA is a large caliber vessel. It is a dominant vessel. It is angiographically normal. In the midportion, it gives rise into acute marginal branch and distally bifurcates into PDA and PLV branches and both are angiographically normal. 2. The left main is angiographically normal, it bifurcates into the left circumflex and left anterior descending artery. 3. Left circumflex is a large caliber vessel. It is a nondominant vessel with the proximal circ, it is angiographically normal and gives rise into first OM, which has mild disease only. The mid circ has a very tight lesion, appears to be in the range of 80% to 90%. This is by the bifurcation of second OM which seems to be angiographically normal. The left circumflex distally is angiographically normal. 4. The LAD system appeared to be angiographically normal. It gives rise into a small diagonal branch which seems to be angiographically normal. HEMODYNAMICS: The left ventricular end-diastolic pressure was about 10 mmHg and no gradient was identified across the aortic valve. PCI OF THE LEFT CIRCUMFLEX: Anticoagulation was initiated using heparin with continuous monitoring the ACT throughout the procedure. Subsequently, I did engage the left main using JL3.5 guide. A whisper wire was used to wire the left circumflex. After that, I did PTCA ballooning using 2.5 x 12 mm balloon before I deployed 3.0 x 15 mm Xience GERALD where the stent was positioned under fluoroscopy guidance and deployed under 11 atmospheres for 20 seconds. The following angiogram showed good angiographic results and the procedure was completed without any complication. CONCLUSION: 1. He has intermittent episodes of chest discomfort with subsequent stress test showing anterior ischemia. 2. 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 3. Successful stenting of the mid left circumflex using 3.0 x 15 mm Xience GERALD with good angiographic results. POSTPROCEDURE MANAGEMENT: 1. Dual anti-platelet therapy. 2. Risk factors modifications. 3. Follow up with the patient. MMNBAL / AMILCARN: [id number] /
== END 2017-08-26 11:11 | disposition home or self-care (01) ==
LOC: CATHCVL 06:09 → 6SEL 12:41 → CATHCVL 08-26 11:11
PROVIDERS: ATTEND Internal Medicine Interventional Cardiology
DX: I25.110 Atherosclerotic heart disease of native coronary artery with unstable angina pectoris (principal); I10 Essential (primary) hypertension; E78.5 Hyperlipidemia, unspecified; Z82.49 Family history of ischemic heart disease and other diseases of the circulatory system; Z79.51 Long term (current) use of inhaled steroids; Z79.82 Long term (current) use of aspirin; Z79.899 Other long term (current) drug therapy
CPT/HCPCS: 93458; 85347; 80048 ×2; 85025 ×2; C9600; C1769; C1887; C1725; C1874; C1894; J2001; J2250; J0360; J1644; Q9967

== ENCOUNTER 2018-07-16 10:30 | Emergency (ER) | payer MEDICARE, BC ==
[2018-07-16 10:40] VITALS: RESP 18
[2018-07-16] MEDS ORDERED: SODIUM CHLORIDE 0.9% 500 ML 500 ML IV STA (10:54)
--- NOTE | 2018-07-16 11:50 | ED ---
GI Bleed HPI - General Chief complaint: GI Bleed Stated complaint: STOOL PROBLEMS Time Seen by Provider: 07/16/18 10:54 Source: patient, RN notes reviewed Mode of arrival: ambulatory Limitations: no limitations - History of Present Illness Initial comments: 83-year-old male presents emergency Department with chief complaint of black stools. Patient states she's noticed some black stools over the last few days. Patient denies any abdominal pain, history of rectal bleeding or history of ulcers. Patient denies believe he takes some blood thinners. Denies any chest pain or shortness breath denies fatigue are the usual or any shortness of breath are the usual. Patient states she's had a colostomy in the past but this was approximately 10 years ago. - Related Data Home Medications Medication Instructions Recorded Confirmed Cholecalciferol [Vitamin D3] 2,000 unit PO HS 09/11/15 07/16/18 [place]-3 Fatty Acids/Fish Oil [Fish 1,000 mg PO HS 09/11/15 07/16/18 Oil 1,000 mg Softgel] Vits A,C,E/Lutein/Minerals 1 tab PO HS 04/22/17 07/16/18 [Ocuvite with Lutein Tablet] Donepezil HCl [Aricept] 5 mg PO HS 07/16/18 07/16/18 Latanoprost/Pf [Latanoprost 0.005% 1 drop BOTH EYES HS 07/16/18 07/16/18 Eye Drop] Lisinopril [Zestril] 5 mg PO DAILY 07/16/18 07/16/18 Loratadine [Claritin] 10 mg PO DAILY 07/16/18 07/16/18 Timolol 0.25% Ophth Soln [Timoptic 1 drop BOTH EYES DAILY 07/16/18 07/16/18 0.25% Ophth Soln] Previous Rx's Medication Instructions Recorded Atorvastatin [Lipitor] 40 mg PO HS #30 tab 06/30/17 Clopidogrel [Plavix] 75 mg PO DAILY #90 tab 08/26/17 Allergies Allergy/AdvReac Type Severity Reaction Status Date / Time No Known Allergies Allergy Verified 07/16/18 10:53 Review of Systems ROS Statement: Those systems with pertinent positive or pertinent negative responses have been documented in the HPI. ROS Other: All systems not noted in ROS Statement are negative. Past Medical History Past Medical History: Chest Pain / Angina, GERD/Reflux, Osteoarthritis (OA) Additional Past Medical History / Comment(s): chest pain 2-3 months ago, History of Any Multi-Drug Resistant Organisms: None Reported Past Surgical History: Appendectomy Additional Past Surgical History / Comment(s): rt knee arthroscopic partial meniscectomy. STENT CX BY DR TAO 08/25/17 Past Anesthesia/Blood Transfusion Reactions: No Reported Reaction Past Psychological History: No Psychological Hx Reported Smoking Status: Never smoker - Past Family History Father History Unknown: Yes Family Medical History: CVA/TIA Additional Family Medical History / Comment(s): Father in his 60s from a head injury secondary to a fall. Mother History Unknown: Yes Family Medical History: No Reported History Additional Family Medical History / Comment(s): Mother from old age in her 90s. Brother(s) Additional Family Medical History / Comment(s): Patient is a total of 4 brothers , one after falling off a motor home. 3 are alive and patient is not aware of any medical problems. Sister(s) Additional Family Medical History / Comment(s): Patient has 1 sister with no known medical problems Daughter(s) Additional Family Medical History / Comment(s): Patient has 1 daughter and 2 sons with no major medical problems. General Exam Limitations: no limitations General appearance: alert, in no apparent distress Head exam: Present: atraumatic, normocephalic, normal inspection Neck exam: Present: normal inspection, full ROM. Absent: tenderness, meningismus, lymphadenopathy Respiratory exam: Present: normal lung sounds bilaterally. Absent: respiratory distress, wheezes, rales, rhonchi, stridor Cardiovascular Exam: Present: regular rate, normal rhythm, normal heart sounds. Absent: systolic murmur, diastolic murmur, rubs, gallop, clicks GI/Abdominal exam: Present: soft, normal bowel sounds. Absent: distended, tenderness, guarding, rebound, rigid Back exam: Absent: CVA tenderness (R), CVA tenderness (L) Skin exam: Present: warm, dry, intact, normal color. Absent: rash Course Vital Signs 07/16/18 10:36 Temperature 98 F Pulse Rate 71 Respiratory 18 Rate Blood Pressure 155/86 O2 Sat by Pulse 97 Oximetry Medical Decision Making - Medical Decision Making 83-year-old male present emergency department for possible blood in stool. Patient still has been black on a few occasions. Patient's hemoglobin is stable , Hemoccult is negative this time. Patient will follow-up with GI for possible colonoscopy though patient is stable for discharge. - Lab Data Result diagrams: 07/16/18 11:35 07/16/18 11:35 Lab Results 07/16/18 07/16/18 07/16/18 Range/Units 11:35 11:35 11:35 WBC 6.6 (3.8-10.6) k/uL RBC 5.00 (4.30-5.90) m/uL Hgb 15.0 (13.0-17.5) gm/dL Hct 44.7 (39.0-53.0) % MCV 89.5 (80.0-100.0) fL MCH 30.1 (25.0-35.0) pg MCHC 33.6 (31.0-37.0) g/dL RDW 14.9 (11.5-15.5) % Plt Count 221 (150-450) k/uL Neutrophils % 63 % Lymphocytes % 23 % Monocytes % 8 % Eosinophils % 3 % Basophils % 1 % Neutrophils # 4.2 (1.3-7.7) k/uL Lymphocytes # 1.6 (1.0-4.8) k/uL Monocytes # 0.5 (0-1.0) k/uL Eosinophils # 0.2 (0-0.7) k/uL Basophils # 0.0 (0-0.2) k/uL PT 10.0 (9.0-12.0) sec INR 0.9 (<1.2) APTT 23.4 (22.0-30.0) sec Sodium 140 (137-145) mmol/L Potassium 4.4 (3.5-5.1) mmol/L Chloride 106 (98-107) mmol/L Carbon Dioxide 26 (22-30) mmol/L Anion Gap 8 mmol/L BUN 17 (9-20) mg/dL Creatinine 0.75 (0.66-1.25) mg/dL Est GFR (CKD-EPI)AfAm >90 (>60 ml/min/1.73 sqM) Est GFR (CKD-EPI)NonAf 84 (>60 ml/min/1.73 sqM) Glucose 88 (74-99) mg/dL Calcium 10.0 (8.4-10.2) mg/dL Total Bilirubin 0.8 (0.2-1.3) mg/dL AST 45 (17-59) U/L ALT 58 (21-72) U/L Alkaline Phosphatase 64 (38-126) U/L Total Protein 7.4 (6.3-8.2) g/dL Albumin 4.5 (3.5-5.0) g/dL Lipase 125 (23-300) U/L Stool Occult Blood (Negative) 07/16/18 Range/Units 12:50 WBC (3.8-10.6) k/uL RBC (4.30-5.90) m/uL Hgb (13.0-17.5) gm/dL Hct (39.0-53.0) % MCV (80.0-100.0) fL MCH (25.0-35.0) pg MCHC (31.0-37.0) g/dL RDW (11.5-15.5) % Plt Count (150-450) k/uL Neutrophils % % Lymphocytes % % Monocytes % % Eosinophils % % Basophils % % Neutrophils # (1.3-7.7) k/uL Lymphocytes # (1.0-4.8) k/uL Monocytes # (0-1.0) k/uL Eosinophils # (0-0.7) k/uL Basophils # (0-0.2) k/uL PT (9.0-12.0) sec INR (<1.2) APTT (22.0-30.0) sec Sodium (137-145) mmol/L Potassium (3.5-5.1) mmol/L Chloride (98-107) mmol/L Carbon Dioxide (22-30) mmol/L Anion Gap mmol/L BUN (9-20) mg/dL Creatinine (0.66-1.25) mg/dL Est GFR (CKD-EPI)AfAm (>60 ml/min/1.73 sqM) Est GFR (CKD-EPI)NonAf (>60 ml/min/1.73 sqM) Glucose (74-99) mg/dL Calcium (8.4-10.2) mg/dL Total Bilirubin (0.2-1.3) mg/dL AST (17-59) U/L ALT (21-72) U/L Alkaline Phosphatase (38-126) U/L Total Protein (6.3-8.2) g/dL Albumin (3.5-5.0) g/dL Lipase (23-300) U/L Stool Occult Blood Negative (Negative) Disposition Clinical Impression: Dark stools Disposition: HOME SELF-CARE Condition: Stable Instructions (If sedation given, give patient instructions): Gastrointestinal Bleeding (ED) Additional Instructions: Please return to the Emergency Department if symptoms worsen or any other concerns. Is patient prescribed a controlled substance at d/c from ED?: No Referrals: José Antonio Sherman MD [Primary Care Provider] - 1-2 days Stefan Hook MD [STAFF PHYSICIAN] - 1-2 days
[2018-07-16 11:56] LABS: Basophils % (A) 1 %; Eosinophils # (A) 0.2 k/uL (0-0.7); Eosinophils % (A) 3 %; HCT 44.7 % (39.0-53.0); Lymphocytes # (A) 1.6 k/uL (1.0-4.8); Lymphocytes % (A) 23 %; MCH 30.1 pg (25.0-35.0); MCHC 33.6 g/dL (31.0-37.0); MCV 89.5 fL (80.0-100.0); Mean Platelet Volume 6.2; Monocytes # (A) 0.5 k/uL (0-1.0); Monocytes % (A) 8 %; Neutrophils # (A) 4.2 k/uL (1.3-7.7); Neutrophils % (A) 63 %; Platelet Count 221 k/uL (150-450); RDW 14.9 % (11.5-15.5); WBC 6.6 k/uL (3.8-10.6)
[2018-07-16 12:06] LABS: INR 0.9 (<1.2); Partial Thromboplastin Time 23.4 sec (22.0-30.0)
[2018-07-16 12:11] LABS: ALT 58 U/L (21-72); AST 45 U/L (17-59); Albumin 4.5 g/dL (3.5-5.0); Alkaline Phosphatase 64 U/L (38-126); Anion Gap 8 mmol/L; Blood Urea Nitrogen 17 mg/dL (9-20); Carbon Dioxide 26 mmol/L (22-30); Chloride 106 mmol/L (98-107); Glucose 88 mg/dL (74-99); Lipase 125 U/L (23-300); Potassium 4.4 mmol/L (3.5-5.1); Sodium 140 mmol/L (137-145); Total Bilirubin 0.8 mg/dL (0.2-1.3); Total Protein 7.4 g/dL (6.3-8.2)
[2018-07-16 13:18] VITALS: BP 143/79; PULSE 69; TEMP 97.9
== END 2018-07-16 13:19 | disposition home or self-care (01) ==
LOC: EC 10:30
DX: R19.5 Other fecal abnormalities (principal); Z79.899 Other long term (current) drug therapy; Z86.79 Personal history of other diseases of the circulatory system; Z87.19 Personal history of other diseases of the digestive system; Z90.49 Acquired absence of other specified parts of digestive tract; Z93.3 Colostomy status
CPT/HCPCS: 36415; 80053; 82272; 83690; 85025; 85610; 85730; 99284

== ENCOUNTER → 2018-12-13 | Outpatient (CLI) | payer MEDICARE, BC | END | disposition home or self-care (01) | LOC: LABWHC1 17:08 | PROVIDERS: ATTEND Orthopaedic Surgery | DX: Z01.812 Encounter for preprocedural laboratory examination (principal) | CPT/HCPCS: 87070 ==

== ENCOUNTER 2018-12-25 06:04 | Inpatient (IN) | payer MEDICARE, BC ==
--- NOTE | 2018-12-24 10:00 | HP ---
HISTORY AND PHYSICAL CHIEF COMPLAINT: Right knee pain. HISTORY OF PRESENT ILLNESS: The patient is an 83-year-old retired gentleman who presents with progressive right knee pain, worsening over the past several years. He is having pain that limits his normal function and activities. He has tried injections along with a previous arthroscopy with only partial temporary relief of his pain. PAST MEDICAL HISTORY: Significant for coronary artery disease and arthritis along with hypertension. PAST SURGICAL HISTORY: Significant for right knee arthroscopy, nasal surgery, and cardiac stent placement. CURRENT MEDICATIONS: Aricept, aspirin, atorvastatin, iron, Lasix, lisinopril. He denies drug allergies. FAMILY HISTORY: Family history is noncontributory. SOCIAL HISTORY: Significant for social alcohol use. REVIEW OF SYSTEMS: Sixteen point review of systems otherwise reviewed and is noncontributory. PHYSICAL EXAMINATION: On examination, the patient is approximately 5 foot 8, 206 pounds, of mesomorphic habitus. HEENT exam is nonfocal. NECK: Supple he has painless passive motion of the right hip. Straight leg raise is negative. Active motion right knee -8 to 120 degrees of flexion. He has trace effusion. He is tender about the medial joint line. Collaterals to collaterals are stable, John Paul is negative, Ministerio's is equivocal. He has genu varum alignment. His distal neurovascular exam appears intact in the right lower extremity. IMPRESSION: Right knee severe medial and patellofemoral compartment osteoarthrosis. RECOMMENDATIONS: I talked to the patient and his family regarding his condition along with treatment options. At this point, he is quite symptomatic related to pain from his osteoarthrosis despite extensive conservative measures. After thorough discussion, he opts to proceed with surgery. We will plan to proceed with right total knee arthroplasty. We will institute DVT prophylaxis postoperatively. Risks and benefits were discussed at length in layman's terms. MMODL / IJN: [id number] /
[~2018-12-25 06:04] MED LIST changes: +ACETAMINOPHEN TAB 500 MG TAB PO ONE; -ALPRAZolam 0.25 MG TAB PO PRN; -ASPIRIN 325 MG TAB PO ONE; +DEXAMETHASONE SOD PHOSPHATE 10 MG/ML 1 ML VIAL IV ONE; +HYDROmorphone 0.5 MG/0.5 ML SYRINGE IVP PRN; +MELOXICAM 7.5 MG TAB PO ONE; +MIDAZOLAM 2 MG/2 ML VIAL IV PRN; -NITROGLYCERIN SL TABS 0.4 MG TAB SUBLINGUAL PRN; +ONDANSETRON 4 MG/2 ML VIAL IVP ONE; -SODIUM CHLORIDE 0.9% 1,000 ML in EMPTY BAG 1 BAG IV ONE; +TRANEXAMIC ACID 1,000 MG in SODIUM CHLORIDE 0.9% 100 ML IVPB ONE
[2018-12-25] MEDS ORDERED: LIDOCAINE 1% 20 ML VIAL (10MG/ML) FOR IV START INTRADERMA ONE (07:10)
[2018-12-25] MEDS: LACTATED RINGERS 1,000 ML IV SCH (07:10)
[2018-12-25 07:36] LABS: ALT 40 U/L (21-72); AST 30 U/L (17-59); African American GFR (CKD) >90 (>60 ml/min/1.73 sqM); Albumin 4.4 g/dL (3.5-5.0); Alkaline Phosphatase 62 U/L (38-126); Anion Gap 8 mmol/L; Anisocytosis Slight; Blood Urea Nitrogen 26 mg/dL (9-20); Calcium 9.9 mg/dL (8.4-10.2); Carbon Dioxide 29 mmol/L (22-30); Chloride 106 mmol/L (98-107); Glucose 113 mg/dL (74-99); HCT 44.1 % (39.0-53.0); HGB 14.4 gm/dL (13.0-17.5); MCH 30.2 pg (25.0-35.0); MCHC 32.7 g/dL (31.0-37.0); MCV 92.4 fL (80.0-100.0); Mean Platelet Volume 7.1; Platelet Count 209 k/uL (150-450); Potassium 4.3 mmol/L (3.5-5.1); RBC 4.77 m/uL (4.30-5.90); RDW 16.2 % (11.5-15.5); Sodium 143 mmol/L (137-145); Total Bilirubin 0.8 mg/dL (0.2-1.3); WBC 6.6 k/uL (3.8-10.6)
[2018-12-25] MEDS ORDERED: ePHEDrine SULFATE/0.9% NACL/PF 50 MG/5 ML SYRINGE IV ONE (07:55)
[2018-12-25] MEDS ORDERED: MIDAZOLAM 2 MG/2 ML VIAL ONE (07:55)
[2018-12-25] MEDS ORDERED: SODIUM CHLORIDE 0.9% 100 ML BAG ONE (07:55)
[2018-12-25] MEDS ORDERED: WATER FOR INJECTION, STERILE 10 ML VIAL IV ONE (07:55)
[2018-12-25] MEDS ORDERED: TRANEXAMIC ACID 1,000 MG/10 ML VIAL ONE (07:55)
[2018-12-25] MEDS ORDERED: GLYCOPYRROLATE 0.2 MG/ML 2 ML VIAL ONE (07:55)
[2018-12-25] MEDS ORDERED: PROPOFOL 10 MG/ML 20 ML VIAL IV ONE (07:55)
[2018-12-25] MEDS ORDERED: ROPIVACAINE 246.25 MG, EPINEPHrine 0.5 MG, KETOROLAC 30 MG, cloNIDine HCL/PF 80 MCG, WA... MISCELLANE ONE ×5 (08:00)
--- NOTE | 2018-12-25 08:15 | P.ANPRN ---
Procedure Note - Anesthesia - Nerve Block Performed Right Adductor Canal Infusion Time Out Performed: Yes Date of Procedure: 12/25/18 Procedure Start Time: Procedure Stop Time: : Location of Patient Procedure: PreOp Indication: Acute Post-Operative Pain, Requested by physician Sedation Type: Sedate with meaningful contact maintained Preparation: Sterile Prep, Sterile Dressing Position: Supine Catheter Depth at Skin (cm): 5 Catheter: Indwelling Needle Types: Pajunk Needle Gauge: 18 Technique: Ultrasound Injectate: 0.5% Ropivacaine (see comment for volume) (30 ml) Blood Aspirated: No Pain Paresthesia on Injection Noted: No Resistance on Injection: Normal Events: Uneventful and Well Tolerated
[2018-12-25] MEDS ORDERED: ROPIVACAINE 0.2%-NS ON-Q PUMP 1,090 MG, EMPTY PAIN BALL 1 EACH MISCELLANE PRN (08:16)
[2018-12-25] MEDS ORDERED: ceFAZolin 3,000 MG in SODIUM CHLORIDE 0.9% IRRIGATIO 3,000 ML IRRIGATION ONE (08:32)
[2018-12-25] MEDS ORDERED: NALOXONE 0.4 MG/ML 1 ML VIAL IV PRN (09:34)
[2018-12-25] MEDS ORDERED: ACETAMINOPHEN TAB 325 MG TAB PO PRN (09:34)
[2018-12-25] MEDS ORDERED: MAGNESIUM HYDROXIDE 2,400 MG/10 ML CUP PO PRN (09:34)
[2018-12-25] MEDS ORDERED: ONDANSETRON 4 MG/2 ML VIAL IVP PRN (09:34)
[2018-12-25] MEDS ORDERED: LACTATED RINGERS 1,000 ML IV ONE (09:54)
--- NOTE | 2018-12-25 09:59 | P.OP ---
Date of Procedure: 12/25/18 Preoperative Diagnosis: Right knee severe tricompartmental osteoarthrosis Postoperative Diagnosis: Same Procedure(s) Performed: Right total knee arthroplastycementedcruciate retaining Implants: Depuy Attune size 8 cemented femoral component, size 7 cemented tibial component, 9 mm articular surface, 38 mm cemented patellar component. This is a cruciate retaining implant. Anesthesia: regional, local, spinal Surgeon: Edilson Sherman [employer] Mainframe Developer #1: Mal Wiley Estimated Blood Loss (ml): 50 Pathology: other (Bone fragments) Condition: stable Disposition: PACU Indications for Procedure: The patient's an 83-year-old male presents with progressive right knee pain secondary osteoarthrosis despite extensive conservative measures. A discussion of the risks and benefits of operative intervention versus continued conservati ve measures was made with the patient. He opted to proceed with surgery. Operative risks to include infection, neurovascular injury, development of blood clots, possible fracture, possible component loosening and need for subsequent procedures was discussed. Informed consent was obtained. Operative Findings: As below Description of Procedure: The patient was brought to the operating room, and after induction of spinal anesthesia the right lower extremity was prepped and draped in a normal fashion. The tourniquet was inflated to 270 mmHg. A longitudinal incision extending 3 finger breaths above the superior pole of the patella extending to the medial aspect the tibial tubercle was then made. The skin and subcutaneous tissues w ere divided sharply. Electrocautery was used for hemostasis. A medial parapatellar arthrotomy was then performed. The medial soft tissues to include the superficial and deep portions of the medial collateral ligament as well as the medial hamstring tendons were elevated subperiosteally. The proximal medial tibia osteophytes were carefully removed. The patella was everted. The knee was flexed. A portion of the retropatellar fat pad was excised sharply. The anterior cruciate ligament was sacrificed. A starting hole was made in the distal femur 1 cm anterior to the posterior cruciate origin. An intramedullary femoral guide was gently inserted planning on 5 valgus distal cut with 9 mm distal resection. The cutting block was pinned in place. The distal cut was then made. The posterior referencing sizing guide was utilized. 3 of external rotation was built into the system and verified off the trans- epicondylar axis and the posterior condyles. I felt size 8 was most appropr iate. The cutting block was pinned in place. The anterior, posterior, and chamfer cuts were then made. The bone fragments were removed. A sulcus cut was then made with the appropriate guide. The trial size 8 femoral component was then placed and was fully seated. There was good anterior to posterior and medial to lateral fit. The distal peg holes were then drilled. The trial component was then removed. Attention was then paid towards preparing the proximal tibia. An extra medullary guide was utilized in line with the tibial shaft and second metatarsal distally. A 7 posterior slope was planned. I planned on 2 mm resection from the medial compartment. The cutting block was pinned in place. The proximal tibial cut was then made. The bone was removed in one fragment. The remnants of the medial and lateral menisci were excised the capsule junction with electrocautery. The tibia sized most appropriately at size 7. The posterior osteophytes off the distal femur were carefully removed with a curved osteotome. The trial tibial and femoral components were placed along with a 9 millimeters articular surface. I was able to obtain full flexion and extension with good stability with varus and valgus stress. After several flexion and extension cycles, the tibial rotation was marked with electrocautery in line with the medial one third of the tibial tubercle. Attention was then paid towards preparing the patella. A patella reamer was utilized taking this down to 14 mm of bone stock. A good flush cut was made. The patella sized most appropriately at 38 millimeters. The peg holes were then drilled. The trial component was placed. The knee was taken through a range of motion. I had good patellofemoral tracking with no hands technique. The trial components were then removed. The tibia was prepared in the appropriate rotation with appropriate drill and keel punch. The flexion and extension gaps were checked and felt to be symmetric. The posterior soft tissues were injected with ropivacaine. The bony surfaces were prepared with pulsatile lavage and dried. The deep tibial component was then cemented in place and was fully seated. Excess cement was removed. The femoral component was cemented in place and was fully seated. Again excess cement was removed. The trial 9 millimeters surface was then inserted in the knee was put in full extension. The patella component was cemented in place. After the cement had sufficiently hardened, the knee was again taken through a range of motion. Again there was good stability in flexion and extension with varus and valgus stress. The trial articular surface was then removed. The final articular surface was placed and was impacted. Care was taken to avoid any soft tissue interposition. Pulsatile lavage was again utilized. The tourniquet was deflated with approximately 55 minutes total tourniquet time. There was minimal drainage therefore a deep drain was not placed. The medial parapatellar arthrotomy was then closed with #2 Ethibond suture. The subcutaneous tissues were reapproximated interrupted 2-0 Vicryl sutures. The skin was reapproximated with 3-0 subarticular strata fix suture. Skin tape and adhesive was applied. A sterile dressing was applied. The patient was then awoken from sedation and transferred to recovery room in good condition. Blood loss was estimated at 50 milliliters. No complications were incurred. Sponge and needle counts were correct at the end the case. Jonnathan GAINES assisted during the major components this case to include exposure, bone resection, and implantation.
--- NOTE | 2018-12-25 10:22 | XR ---
EXAMINATION TYPE: XR knee limited RT DATE OF EXAM: 12/25/2018 COMPARISON: NONE TECHNIQUE: Two views submitted HISTORY: Post op FINDINGS: There is a prosthetic knee in near anatomic alignment. There is soft tissue edema and emphysema. IMPRESSION: 1. Postoperative change. Appears in near-anatomic alignment
[2018-12-25 11:24] VITALS: BMI 32.5
--- NOTE | 2018-12-25 14:34 | P.CONS ---
History of Present Illness - Reason for Consult Consult date: 12/25/18 Requesting physician: Edilson Sherman - Chief Complaint Right total knee arthroplasty - History of Present Illness This is an 83-year-old gentleman with known history of CAD and nausea arthritis hypertension, hyperlipidemia admitted service of Dr. Sherman for elective right t otal knee arthroplasty secondary to advancing DJD, patient underwent right total knee. Last seen on 12/25/2018, without any perioperative complications. Patient denies any chest pain or palpitations, no difficulty of breathing, patient denies any shortness of breath, patient has short-term memory losses, no aspirin events, no dysphagia no nausea Review of Systems Constitutional: Reports as per HPI, Denies anorexia, Denies chills, Denies chronic headaches, Denies chronic pain, Denies daytime sleepiness, Denies fatigue, Denies fever, Denies lethargy, Denies malaise, Denies night sweats, Denies poor appetite, Denies sweats, Denies weakness, Denies weight gain, Denies weight loss Ears: bilateral: decreased hearing Ears, nose, mouth and throat: Reports as per HPI Cardiovascular: Reports as per HPI, Denies chest pain, Denies claudication, Denies decreased exercise tolerance, Denies dyspnea on exertion, Denies edema, Denies high blood pressure, Denies irregular heart beat, Denies leg edema, Denies lightheadedness, Denies orthopnea, Denies palpitations, Denies paroxysmal nocturnal dyspnea, Denies phlebitis, Denies rapid heart beat, Denies shortness of breath, Denies syncope Respiratory: Reports as per HPI, Denies congestion, Denies cough, Denies cough with sputum, Denies dyspnea, Denies excessive sputum, Denies hemoptysis, Denies home oxygen, Denies pain, Denies pain on inspiration, Denies pleurisy, Denies respiratory infections, Denies sleep apnea, Denies snoring, Denies wheezing Gastrointestinal: Reports as per HPI, Denies abdominal pain, Denies belching, Denies bloating, Denies BRBPR, Denies change in bowel habits, Denies coffee ground emesis, Denies constipation, Denies diarrhea, Denies dyspepsia, Denies early satiety, Denies excessive gas, Denies heartburn, Denies hematemesis, Denies hematochezia, Denies indigestion, Denies jaundice, Denies lactose intolerance, Denies loss of appetite, Denies melena, Denies nausea, Denies vomiting Genitourinary: Reports as per HPI Musculoskeletal: Reports as per HPI, Reports gait dysfunction, Reports limitation of motion, Denies arm numbness/tingling, Denies atrophy, Denies fractures, Denies frequent falls, Denies hot joints, Denies leg numbness/tingling, Denies loss of height, Denies low back pain, Denies morning stiffness, Denies muscle cramps, Denies muscle weakness, Denies myalgias, Denies neck pain, Denies neck stiffness, Denies prior amputations, Denies redness of joints, Denies shooting arm pain, Denies shooting leg pain Integumentary: Reports as per HPI, Denies acne, Denies boils, Denies brittle nails, Denies change in hair/nails, Denies color changes, Denies darkening of skin, Denies depigmentation, Denies dryness, Denies foot/leg ulcers, Denies growths, Denies hirsutism, Denies lesions, Denies onychomycosis, Denies pruritus, Denies rash, Denies sores, Denies striae, Denies unusual bruising, Denies wounds Neurological: Reports as per HPI, Reports gait dysfunction, Reports memory loss, Denies aphasia, Denies ataxia, Denies balance difficulties, Denies burning pain, Denies change in mentation, Denies change in smell/taste, Denies change in speech, Denies confusion, Denies convulsions, Denies double vision, Denies head injury, Denies headaches, Denies hearing difficulties, Denies lack of coordination, Denies loss of vision, Denies migraines, Denies motor disturbance, Denies numbness, Denies paralysis, Denies paresthesias, Denies seizures, Denies sensory deficit, Denies spasticity, Denies syncope, Denies tic, Denies tingling, Denies transient paralysis, Denies tremors, Denies vertigo, Denies weakness, Denies visual changes Psychiatric: Reports as per HPI Endocrine: Reports as per HPI Hematologic/Lymphatic: Reports as per HPI, Denies easy bleeding, Denies easy bruising, Denies lymphadenopathy, Denies lymphedema, Denies thrombophilia Allergic/Immunologic: Reports as per HPI, Denies allergic rhinitis, Denies anaphylaxis, Denies angioedema, Denies gluten intolerance, Denies persistent infections, Denies seasonal allergies, Denies urticaria, Denies wheezing Past Medical History Past Medical History: Hyperlipidemia, Memory Impairment, Osteoarthritis (OA) Additional Past Medical History / Comment(s): Short term memory impairment. History of Any Multi-Drug Resistant Organisms: None Reported Past Surgical History: Appendectomy, Heart Catheterization With Stent, Orthopedic Surgery Additional Past Surgical History / Comment(s): Right knee arthroscopic partial meniscectomy. Colonoscopy October 2015 EGD with biopsy November 2009. Colonoscopy November 2009 deviated septum repair in 1988 appendectomy September 2015 Byrne's cyst removal Past Anesthesia/Blood Transfusion Reactions: No Reported Reaction Date of Last Stent Placement:: 08/25/17 Past Psychological History: No Psychological Hx Reported Additional Psychological History / Comment(s): pt independnat. lives alone has 1 pet dog. no home care services, no medical equipment. no past service. 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 Mother History Unknown: Yes Family Medical History: No Reported History, Rheumatoid Arthritis (RA) Additional Family Medical History / Comment(s): Mother from old age in her 90s. Brother(s) Additional Family Medical History / Comment(s): Patient is a total of 4 brothers, one after falling off a motor home. 3 are alive and patient is not aware of any medical problems. Sister(s) Additional Family Medical History / Comment(s): Patient has 1 sister with no known medical problems Daughter(s) Additional Family Medical History / Comment(s): Patient has 1 daughter and 2 sons with no major medical problems. Medications and Allergies Home Medications Medication Instructions Recorded Confirmed Type Cholecalciferol [Vitamin D3 (25 2,000 unit PO HS 09/11/15 12/25/18 History Mcg = 1000 Iu)] [place]-3 Fatty Acids/Fish Oil [Fish 1,000 mg PO DAILY 09/11/15 12/25/18 History Oil 1,000 mg Softgel] Vits A,C,E/Lutein/Minerals 1 tab PO DAILY 04/22/17 12/25/18 History [Ocuvite with Lutein Tablet] Donepezil HCl [Aricept] 5 mg PO HS 07/16/18 12/25/18 History Lisinopril [Zestril] 5 mg PO QAM 07/16/18 12/25/18 History Loratadine [Claritin] 10 mg PO HS 07/16/18 12/25/18 History Acetaminophen [Tylenol Arthritis] 650 mg PO TID PRN 12/21/18 12/25/18 History Aspirin [Adult Low Dose Aspirin EC] 81 mg PO QAM 12/21/18 12/25/18 History Atorvastatin [Lipitor] 40 mg PO DAILY 12/21/18 12/25/18 History Ferrous Sulfate [Feosol] 325 mg PO DAILY 12/21/18 12/25/18 History Furosemide [Lasix] 20 mg PO DAILY 12/21/18 12/25/18 History Latanoprost Ophth [Xalatan 0.005%] 12/25/18 History Timolol 0.25% Ophth Soln [Timoptic 12/25/18 History 0.25% Ophth Soln] Allergies Allergy/AdvReac Type Severity Reaction Status Date / Time No Known Allergies Allergy Verified 12/25/18 11:12 Physical Exam Vitals: Vital Signs Temp Pulse Pulse Pulse Resp BP Pulse Ox 12/25/18 13:05 84 151/77 12/25/18 12:50 179/157 12/25/18 12:35 85 12/25/18 12:20 90 138/82 98 12/25/18 12:05 123/65 12/25/18 11:50 73 153/75 12/25/18 11:35 72 126/49 12/25/18 11:20 62 135/69 96 12/25/18 11:10 97.5 F L 64 16 129/70 96 12/25/18 10:40 68 18 108/70 96 12/25/18 10:25 66 16 118/61 95 12/25/18 10:10 61 16 130/97 94 L 12/25/18 09:56 98.9 F 68 16 127/74 94 L 12/25/18 06:30 97.1 F L 76 18 154/79 93 L Intake and Output 07/29/19 07/30/19 07/30/19 22:59 06:59 14:59 Intake Total 1351 Output Total 50 Balance 1301 Intake: IV 1051 Oral 300 Output: Estimated Blood Loss 50 - Constitutional General appearance: no average body habitus, cooperative, no disheveled, no mild distress, no morbidly obese, no acute distress, obese, no severe distress, no thin - EENT Eyes: no abnormal pupil, anicteric sclerae, no disc margins sharp, no edentulous, no EOMI, PERRLA, no fundus normal, no photophobia, dentition normal, no poor dentition, no ptosis, no scleral icterus, no normal appearance ENT: no hard of hearing, no hearing grossly normal, no NA/AT, no normal oropharynx, no other, no pharyngeal erythema, no thrush, no tonsillar exudates, no tonsillar swelling - Respiratory Respiratory: bilateral: CTA, negative: diminished, dullness, rales, rhonchi - Cardiovascular Rhythm: regular Heart sounds: normal: S1, S2 Abnormal Heart Sounds: no systolic murmur, no diastolic murmur, no rub, no S3 Gallop, no S4 Gallop, no click, no other - Gastrointestinal General gastrointestinal: normal bowel sounds, soft - Integumentary Integumentary: normal, normal turgor - Neurologic Neurologic: CNII-XII intact - Musculoskeletal Musculoskeletal: gait normal, strength equal bilaterally - Psychiatric Psychiatric: A&O x's 3, appropriate affect Results CBC & Chem 7: 12/25/18 07:10 12/25/18 07:10 Labs: Abnormal Lab Results - Last 24 Hours (Table) 12/25/18 12/25/18 Range/Units 07:10 07:10 RDW 16.2 H (11.5-15.5) % BUN 26 H (9-20) mg/dL Glucose 113 H (74-99) mg/dL Laboratory Results WBC 6.6 k/uL (3.8-10.6) 12/25/18 07:10 RBC 4.77 m/uL (4.30-5.90) 12/25/18 07:10 Hgb 14.4 gm/dL (13.0-17.5) 12/25/18 07:10 Hct 44.1 % (39.0-53.0) 12/25/18 07:10 MCV 92.4 fL (80.0-100.0) 12/25/18 07:10 MCH 30.2 pg (25.0-35.0) 12/25/18 07:10 MCHC 32.7 g/dL (31.0-37.0) 12/25/18 07:10 RDW 16.2 % (11.5-15.5) H 12/25/18 07:10 Plt Count 209 k/uL (150-450) 12/25/18 07:10 Anisocytosis Slight 12/25/18 07:10 Sodium 143 mmol/L (137-145) 12/25/18 07:10 Potassium 4.3 mmol/L (3.5-5.1) 12/25/18 07:10 Chloride 106 mmol/L (98-107) 12/25/18 07:10 Carbon Dioxide 29 mmol/L (22-30) 12/25/18 07:10 Anion Gap 8 mmol/L 12/25/18 07:10 BUN 26 mg/dL (9-20) H 12/25/18 07:10 Creatinine 0.85 mg/dL (0.66-1.25) 12/25/18 07:10 Est GFR (CKD-EPI)AfAm >90 (>60 ml/min/1.73 sqM) 12/25/18 07:10 Est GFR (CKD-EPI)NonAf 80 (>60 ml/min/1.73 sqM) 12/25/18 07:10 Glucose 113 mg/dL (74-99) H 12/25/18 07:10 Calcium 9.9 mg/dL (8.4-10.2) 12/25/18 07:10 Total Bilirubin 0.8 mg/dL (0.2-1.3) 12/25/18 07:10 AST 30 U/L (17-59) 12/25/18 07:10 ALT 40 U/L (21-72) 12/25/18 07:10 Alkaline Phosphatase 62 U/L (38-126) 12/25/18 07:10 Total Protein 7.0 g/dL (6.3-8.2) 12/25/18 07:10 Albumin 4.4 g/dL (3.5-5.0) 12/25/18 07:10 Laboratory Results WBC 6.6 k/uL (3.8-10.6) 12/25/18 07:10 RBC 4.77 m/uL (4.30-5.90) 12/25/18 07:10 Hgb 14.4 gm/dL (13.0-17.5) 12/25/18 07:10 Hct 44.1 % (39.0-53.0) 12/25/18 07:10 MCV 92.4 fL (80.0-100.0) 12/25/18 07:10 MCH 30.2 pg (25.0-35.0) 12/25/18 07:10 MCHC 32.7 g/dL (31.0-37.0) 12/25/18 07:10 RDW 16.2 % (11.5-15.5) H 12/25/18 07:10 Plt Count 209 k/uL (150-450) 12/25/18 07:10 Anisocytosis Slight 12/25/18 07:10 Sodium 143 mmol/L (137-145) 12/25/18 07:10 Potassium 4.3 mmol/L (3.5-5.1) 12/25/18 07:10 Chloride 106 mmol/L (98-107) 12/25/18 07:10 Carbon Dioxide 29 mmol/L (22-30) 12/25/18 07:10 Anion Gap 8 mmol/L 12/25/18 07:10 BUN 26 mg/dL (9-20) H 12/25/18 07:10 Creatinine 0.85 mg/dL (0.66-1.25) 12/25/18 07:10 Est GFR (CKD-EPI)AfAm >90 (>60 ml/min/1.73 sqM) 12/25/18 07:10 Est GFR (CKD-EPI)NonAf 80 (>60 ml/min/1.73 sqM) 12/25/18 07:10 Glucose 113 mg/dL (74-99) H 12/25/18 07:10 Calcium 9.9 mg/dL (8.4-10.2) 12/25/18 07:10 Total Bilirubin 0.8 mg/dL (0.2-1.3) 12/25/18 07:10 AST 30 U/L (17-59) 12/25/18 07:10 ALT 40 U/L (21-72) 12/25/18 07:10 Alkaline Phosphatase 62 U/L (38-126) 12/25/18 07:10 Total Protein 7.0 g/dL (6.3-8.2) 12/25/18 07:10 Albumin 4.4 g/dL (3.5-5.0) 12/25/18 07:10 Assessment and Plan Plan: Right total knee arthroplasty performed on 12/25/2018 postoperative day #0, patient underwent disposition without any perioperative complications, RCR I of 1 based on CAD with prior stents, patient currently is asymptomatic, follows with Dr.VC avalos From cardiology office. Patient is to receive opiates for pain control, incentive spirometry, DVT prophylaxis, 2. Hypertension maintain lisinopril 5 mg daily Lasix will be held today, condition prior to discharge on discharge 2. Hyperlipidemia atorvastatin 40 mg daily 4. CAD with prior stenting 5. Moderate MR based on echocardiogram August 2018 with EF of 50%, on Lasix daily hold on post op day 0 6. CAD with prior stenting of the circumflex and left-sided 08/25/2017 Lexiscan was performed the prior 2017 by cardiology AB I normal 02/09/2018 until Dopplex upper 17 normal 12/25/2017 carotid Dopplers mild disease bilateral ICA without any significant stenosis 7. History of testicular cancer 8. BPH without lower tract symptomatology DVT prophylaxis aspirin GI prophylaxis thank you Dr. Pimentel in allowing us precipitate care. Patient, we'll going to follow him with you during this current hospital stay, recommendations to be made based on his clinical progress
[2018-12-25] MEDS: SENNOSIDES-DOCUSATE SODIUM 1 EACH TAB PO SCH (21:37)
[2018-12-25] MEDS: ENOXAPARIN 30 MG/0.3 ML SYRINGE SQ SCH (21:42)
[2018-12-26] MEDS: traMADol 50 MG TAB PO PRN ×3 (04:27→20:54)
[2018-12-26] MEDS: LACTATED RINGERS 1,000 ML IV SCH (05:27)
[2018-12-26] MEDS: ENOXAPARIN 30 MG/0.3 ML SYRINGE SQ SCH ×2 (07:11→20:53)
--- NOTE | 2018-12-26 08:59 | P.PN ---
Progress Note - Text Progress Note Date: 12/26/18 Patient without complaints. Pain controlled. Small pain in medial knee. Denies weakness. OnQ right adductor canal catheter at 8 ml/hr Catheter site clean and dry. A/P POD#1 s/p R TKA - continue OnQ adductor canal catheter
[2018-12-26 09:06] LABS: Basophils % (A) 0 %; Eosinophils % (A) 0 %; HCT 37.1 % (39.0-53.0); Lymphocytes # (A) 1.7 k/uL (1.0-4.8); Lymphocytes % (A) 14 %; MCH 30.5 pg (25.0-35.0); MCHC 32.3 g/dL (31.0-37.0); MCV 94.4 fL (80.0-100.0); Monocytes % (A) 9 %; Neutrophils # (A) 8.7 k/uL (1.3-7.7); Neutrophils % (A) 75 %; Platelet Count 208 k/uL (150-450); RBC 3.93 m/uL (4.30-5.90); RDW 15.1 % (11.5-15.5); WBC 11.6 k/uL (3.8-10.6)
--- NOTE | 2018-12-26 10:28 | P.PN ---
Subjective Progress Note Date: 12/26/18 Principal diagnosis: Status post right total knee arthroplasty Patient evaluated at bedside today, his family present. He is resting comfortably in the chair. There were questions about possible fall in the bathroom. I discussed with nursing and aids, they mention he was stating this last night. The aid mentioned that he was in his bed with a bed alarm and did not have a fall. Patient denies any chest pain or shortness of breath this time. Objective - Vital Signs Vital signs: Vital Signs Temp 97.5 F L 12/26/18 07:00 Pulse 72 12/26/18 07:00 Resp 16 12/26/18 07:50 BP 123/73 12/26/18 07:00 Pulse Ox 96 12/26/18 07:00 Intake & Output 12/25/18 12/26/18 12/26/18 18:59 06:59 18:59 Intake Total 1751 276 240 Output Total 50 950 Balance 1701 -674 240 Intake: IV 1051 Intake, IV Titration 160 276 Amount Lactated Ringers 1,000 ml 160 176 @ 40 mls/hr IV .Q24H HEBER Rx#:[id number] ceFAZolin 2 gm In Sodium 100 Chloride 0.9% 50 ml @ 100 mls/hr IVPB Q8HR [facility] Rx# :[id number] Oral 540 240 Output: Urine 950 Straight 650 Estimated Blood Loss 50 Other: # Voids 3 - Exam Right lower extremity: Incision is clean, dry, and intact. The exofin fusion tape is in good condition. There is minimal soft tissue swelling and ecchymosis surrounding the medial and lateral aspects of the incision. Calf is soft, no tenderness with palpation. Plantar flexion, dorsiflexion, EHL, FHL are intact. Sensory exam to light touch throughout the extremity is intact, dorsal pedis pulses 2+. - Labs CBC & Chem 7: 12/26/18 07:56 12/25/18 07:10 Labs: Abnormal Lab Results - Last 24 Hours (Table) 12/26/18 Range/Units 07:56 WBC 11.6 H (3.8-10.6) k/uL RBC 3.93 L (4.30-5.90) m/uL Hgb 12.0 L (13.0-17.5) gm/dL Hct 37.1 L (39.0-53.0) % Neutrophils # 8.7 H (1.3-7.7) k/uL Assessment and Plan Plan: Assessment: 1. Postop day #1 status post right total knee arthroplasty Plan: Pain control, continue current medication GI and DVT prophylaxis, continue current medication Ice and elevate/daily dressing changes Encourage incentive spirometer Continue with physical therapy Medical recommendations X-rays of the right knee were ordered Discharge planning: Patient will be discharged to rehab in the next few days Time with Patient: Less than 30
--- NOTE | 2018-12-26 13:31 | XR ---
Right knee HISTORY: Status post right knee arthroplasty, fall 2 views of the right knee, comparison to prior exam 12/25/2018 Patient is status post right knee arthroplasty. There is anatomic alignment. Lucency in the soft tiss ues is compatible with postop state, there is however new lucency present in the prepatellar location and increased soft tissue swelling. Soft tissue swelling is noted. Sliver-like metallic density pres ent in the prepatellar tendon soft tissues is indeterminate. IMPRESSION: Orthopedic follow-up. Soft tissue swelling and abnormal lucency is increased, foreign bod y.
--- NOTE | 2018-12-26 14:03 | P.PN ---
Subjective Progress Note Date: 12/26/18 This is an 83-year-old patient of Dr. Man with known history of CAD and nausea arthritis hypertension, hyperlipidemia admitted service of Dr. Sherman for elective right total knee arthroplasty secondary to advancing DJD, patient underwent right total knee. Last seen on 12/25/2018, without any perioperative complications. Patient denies any chest pain or palpitations, no difficulty of breathing, patient denies any shortness of breath, patient has short-term memory losses, no aspirin events, no dysphagia no nausea 12/26: Patient has been afebrile, heart rate 72, blood pressure 123/73, pulse ox 96% on room air. Lab work reveals a white count of 11.6, hemoglobin 12.0. Patient is on Q adductor catheter in place for pain control. Patient states he is urinating okay. His appetite is good. He denies any nausea. He states he slept last night. He states he is planning to go to subacute rehab which is [facility]. Objective - Vital Signs Vital signs: Vital Signs Temp 97.5 F L 12/26/18 07:00 Pulse 72 12/26/18 07:00 Resp 16 12/26/18 07:00 BP 123/73 12/26/18 07:00 Pulse Ox 96 12/26/18 07:00 Intake & Output 12/25/18 12/26/18 12/26/18 18:59 06:59 18:59 Intake Total 1751 276 Output Total 50 950 Balance 1701 -674 Intake: IV 1051 Intake, IV Titration 160 276 Amount Lactated Ringers 1,000 ml 160 176 @ 40 mls/hr IV .Q24H HEBER Rx#:[id number] ceFAZolin 2 gm In Sodium 100 Chloride 0.9% 50 ml @ 100 mls/hr IVPB Q8HR HEBER Rx# :[id number] Oral 540 Output: Urine 950 Straight 650 Estimated Blood Loss 50 Other: # Voids 3 - Exam Review of Systems Constitutional: Reports as per HPI, Denies anorexia, Denies chills, Denies chronic headaches, Denies chronic pain, Denies daytime sleepiness, Denies fatigue, Denies fever, Denies lethargy, Denies malaise, Denies night sweats, Denies poor appetite, Denies sweats, Denies weakness, Denies weight gain, Denies weight loss Ears: bilateral: decreased hearing Ears, nose, mouth and throat: Reports as per HPI Cardiovascular: Reports as per HPI, Denies chest pain, Denies claudication, Denies decreased exercise tolerance, Denies dyspnea on exertion, Denies edema, Denies high blood pressure, Denies irregular heart beat, Denies leg edema, Denies lightheadedness, Denies orthopnea, Denies palpitations, Denies paroxysmal nocturnal dyspnea, Denies phlebitis, Denies rapid heart beat, Denies shortness of breath, Denies syncope Respiratory: Reports as per HPI, Denies congestion, Denies cough, Denies cough with sputum, Denies dyspnea, Denies excessive sputum, Denies hemoptysis, Denies home oxygen, Denies pain, Denies pain on inspiration, Denies pleurisy, Denies respiratory infections, Denies sleep apnea, Denies snoring, Denies wheezing Gastrointestinal: Reports as per HPI, Denies abdominal pain, Denies belching, Denies bloating, Denies BRBPR, Denies change in bowel habits, Denies coffee ground emesis, Denies constipation, Denies diarrhea, Denies dyspepsia, Denies early satiety, Denies excessive gas, Denies heartburn, Denies hematemesis, Denies hematochezia, Denies indigestion, Denies jaundice, Denies lactose intolerance, Denies loss of appetite, Denies melena, Denies nausea, Denies vomiting Genitourinary: Reports as per HPI Musculoskeletal: Reports as per HPI, Reports gait dysfunction, Reports limitation of motion, Denies arm numbness/tingling, Denies atrophy, Denies fractures, Denies frequent falls, Denies hot joints, Denies leg numbness/tingling, Denies loss of height, Denies low back pain, Denies morning stiffness, Denies muscle cramps, Denies muscle weakness, Denies myalgias, Denies neck pain, Denies neck stiffness, Denies prior amputations, Denies redness of joints, Denies shooting arm pain, Denies shooting leg pain Integumentary: Reports as per HPI, Denies acne, Denies boils, Denies brittle nails, Denies change in hair/nails, Denies color changes, Denies darkening of skin, Denies depigmentation, Denies dryness, Denies foot/leg ulcers, Denies growths, Denies hirsutism, Denies lesions, Denies onychomycosis, Denies pruritus, Denies rash, Denies sores, Denies striae, Denies unusual bruising, Denies wounds Neurological: Reports as per HPI, Reports gait dysfunction, Reports memory loss, Denies aphasia, Denies ataxia, Denies balance difficulties, Denies burning pain, Denies change in mentation, Denies change in smell/taste, Denies change in speech, Denies confusion, Denies convulsions, Denies double vision, Denies head injury, Denies headaches, Denies hearing difficulties, Denies lack of coordination, Denies loss of vision, Denies migraines, Denies motor disturbance, Denies numbness, Denies paralysis, Denies paresthesias, Denies seizures, Denies sensory deficit, Denies spasticity, Denies syncope, Denies tic, Denies tingling, Denies transient paralysis, Denies tremors, Denies vertigo, Denies weakness, Denies visual changes Psychiatric: Denies depression, denies anxiety Endocrine: Denies abnormal blood sugar Hematologic/Lymphatic: Reports as per HPI, Denies easy bleeding, Denies easy bruising, Denies lymphadenopathy, Denies lymphedema, Denies thrombophilia Allergic/Immunologic: Reports as per HPI, Denies allergic rhinitis, Denies anaphylaxis, Denies angioedema, Denies gluten intolerance, Denies persistent infections, Denies seasonal allergies, Denies urticaria, Denies wheezing - Constitutional General appearance: no average body habitus, cooperative, no disheveled, no mild distress, no morbidly obese, no acute distress, obese, no severe distress, no thin - EENT Eyes: no abnormal pupil, anicteric sclerae, no disc margins sharp, no edentulous, no EOMI, PERRLA, no fundus normal, no photophobia, dentition normal, no poor dentition, no ptosis, no scleral icterus, no normal appearance ENT: no hard of hearing, no hearing grossly normal, no NA/AT, no normal oropharynx, no other, no pharyngeal erythema, no thrush, no tonsillar exudates, no tonsillar swelling - Respiratory Respiratory: bilateral: CTA, negative: diminished, dullness, rales, rhonchi - Cardiovascular Rhythm: regular Heart sounds: normal: S1, S2 Abnormal Heart Sounds: no systolic murmur, no diastolic murmur, no rub, no S3 Gallop, no S4 Gallop, no click, no other - Gastrointestinal General gastrointestinal: normal bowel sounds, soft - Integumentary Integumentary: normal, normal turgor - Neurologic Neurologic: CNII-XII intact - Musculoskeletal Musculoskeletal: gait normal, strength equal bilaterally Addressed in place to the right knee with ice packs. No breakthrough bleeding. Patient has legs elevated in recliner. - Psychiatric Psychiatric: A&O x's 3, appropriate affect - Labs CBC & Chem 7: 12/26/18 07:56 12/25/18 07:10 Labs: Abnormal Lab Results - Last 24 Hours (Table) 12/26/18 Range/Units 07:56 WBC 11.6 H (3.8-10.6) k/uL RBC 3.93 L (4.30-5.90) m/uL Hgb 12.0 L (13.0-17.5) gm/dL Hct 37.1 L (39.0-53.0) % Neutrophils # 8.7 H (1.3-7.7) k/uL Assessment and Plan Plan: 1. Right total knee arthroplasty performed on 12/25/2018. Continue current pain control, incentive spirometry, DVT prophylaxis, 2. Hypertension. Continue lisinopril 5 mg daily Lasix will be resumed on discharge. 3. Hyperlipidemia. Continue atorvastatin 40 mg daily. 4. CAD with prior stenting 5. Moderate MR based on echocardiogram August 2018 with EF of 50%, on Lasix daily hold 6. CAD with prior stenting of the circumflex and left-sided 08/25/2017 Lexiscan was performed the prior 2017 by cardiology AB I normal 02/09/2018 until Dopplex upper 17 normal 12/25/2017 carotid Dopplers mild disease bilateral ICA without any significant stenosis 7. History of testicular cancer 8. BPH without lower tract symptomatology DVT prophylaxis. Lovenox. GI prophylaxis Discharge plan: [facility] Impression and plan of care have been directed as dictated by the signing physician. Hui Ortega nurse practitioner acting as scribe for signing physician.
[2018-12-26] MEDS: CHOLECALCIFEROL 1,000 UNIT TAB PO SCH (20:52)
[2018-12-26] MEDS: DONEPEZIL 5 MG TAB PO SCH (20:53)
[2018-12-26] MEDS: TIMOLOL 0.25% OPHTH DROPS 5 ML BTL BOTH EYES SCH (20:53)
[2018-12-26] MEDS: LATANOPROST 0.005% OPHTH DROPS 2.5 ML BTL BOTH EYES SCH (20:54)
[2018-12-26] MEDS: LORATADINE 10 MG TAB PO SCH (20:54)
[2018-12-26] MEDS: SENNOSIDES-DOCUSATE SODIUM 1 EACH TAB PO SCH (20:54)
[2018-12-27] MEDS: LACTATED RINGERS 1,000 ML IV SCH (05:35)
[2018-12-27] MEDS: traMADol 50 MG TAB PO PRN (07:27)
[2018-12-27] MEDS: ATORVASTATIN 40 MG TAB PO SCH (07:27)
[2018-12-27] MEDS: ENOXAPARIN 30 MG/0.3 ML SYRINGE SQ SCH ×2 (07:28→20:35)
[2018-12-27] MEDS: FERROUS SULFATE 325 MG TAB PO SCH (07:28)
[2018-12-27] MEDS: TIMOLOL 0.25% OPHTH DROPS 5 ML BTL BOTH EYES SCH ×2 (07:29→20:37)
[2018-12-27] MEDS ORDERED: LISINOPRIL 5 MG TAB PO SCH (09:00)
--- NOTE | 2018-12-27 09:23 | P.PN ---
Subjective Progress Note Date: 12/27/18 Principal diagnosis: Status post right total knee arthroplasty Patient evaluated at bedside today, his family present. He is resting comfortably in the chair. Patient denies any chest pain or shortness of breath this time. Objective - Vital Signs Vital signs: Vital Signs Temp 98.1 F 12/27/18 07:00 Pulse 92 12/27/18 07:00 Resp 16 12/27/18 07:00 BP 160/90 12/27/18 07:00 Pulse Ox 95 12/27/18 07:00 Intake & Output 12/26/18 12/27/18 12/27/18 18:59 06:59 18:59 Intake Total 480 150 200 Balance 480 150 200 Intake: Oral 480 150 200 Other: Voiding Method Toilet Urinal # Voids 2 4 1 - Exam Right lower extremity: Incision is clean, dry, and intact. The exofin fusion tape is in good condition. There is minimal soft tissue swelling and ecchymosis surrounding the medial and lateral aspects of the incision. Calf is soft, no tenderness with palpation. Plantar flexion, dorsiflexion, EHL, FHL are intact. Sensory exam to light touch throughout the extremity is intact, dorsal pedis pulses 2+. - Labs CBC & Chem 7: 12/26/18 07:56 12/25/18 07:10 Assessment and Plan Plan: Assessment: 1. Postop day #2 status post right total knee arthroplasty Plan: Pain control, continue current medication GI and DVT prophylaxis, continue current medication Ice and elevate/daily dressing changes Encourage incentive spirometer Continue with physical therapy Medical recommendations X-rays of the right knee revealed no acute changes Discharge planning: Patient will be discharged to rehab tomorrow Time with Patient: Less than 30
[2018-12-27] MEDS ORDERED: LISINOPRIL 5 MG TAB PO STA (11:33)
[2018-12-27] MEDS: FUROSEMIDE 10 MG/ML 2 ML VIAL IV SCH (11:46)
--- NOTE | 2018-12-27 11:47 | P.PN ---
Progress Note - Text Anesthesia POD 2. Patient is status post right TKR under spinal anesthesia with a right adductor canal catheter placed for postoperative pain relief. With ropivacaine 0.2% running at 10 cc's per hour, the patient's VAS is (1, 3). Catheter site is clean dry and intact.
--- NOTE | 2018-12-27 15:22 | P.PN ---
Subjective Progress Note Date: 12/27/18 This is an 83-year-old patient of Dr. Man with known history of CAD and nausea arthritis hypertension, hyperlipidemia admitted service of Dr. Sherman for elective right total knee arthroplasty secondary to advancing DJD, patient underwent right total knee. Last seen on 12/25/2018, without any perioperative complications. Patient denies any chest pain or palpitations, no difficulty of breathing, patient denies any shortness of breath, patient has short-term memory losses, no aspirin events, no dysphagia no nausea 12/26: Patient has been afebrile, heart rate 72, blood pressure 123/73, pulse ox 96% on room air. Lab work reveals a white count of 11.6, hemoglobin 12.0. Patient is on Q adductor catheter in place for pain control. Patient states he is urinating okay. His appetite is good. He denies any nausea. He states he slept last night. He states he is planning to go to subacute rehab which is [facility]. 12/27: Patient remains afebrile, heart rate 92, blood pressure 160/90, pulse ox 95% on room air. No repeat labs for today. Patient states that he is concerned because he is having difficulty ambulating. He is working with physical therapy and occupational therapy. This to support his need for subacute rehab. Noted that his blood pressure is elevated and we will increase lisinopril to 10 mg daily. Lasix 20 mg IV added for lower extremity edema. Patient is scheduled for discharge to rehab tomorrow. Objective - Vital Signs Vital signs: Vital Signs Temp 98.1 F 12/27/18 07:00 Pulse 92 12/27/18 07:00 Resp 16 12/27/18 08:00 BP 160/90 12/27/18 07:00 Pulse Ox 95 12/27/18 07:00 Intake & Output 12/26/18 12/27/18 12/27/18 18:59 06:59 18:59 Intake Total 480 150 200 Balance 480 150 200 Intake: Oral 480 150 200 Other: Voiding Method Toilet Toilet Urinal Urinal # Voids 2 4 1 - Exam Review of Systems Constitutional: Reports as per HPI, Denies anorexia, Denies chills, Denies chronic headaches, Denies chronic pain, Denies daytime sleepiness, Denies fatigue, Denies fever, Denies lethargy, Denies malaise, Denies night sweats, Denies poor appetite, Denies sweats, Denies weakness, Denies weight gain, Denies weight loss Ears: bilateral: decreased hearing Ears, nose, mouth and throat: Reports as per HPI Cardiovascular: Reports as per HPI, Denies chest pain, Denies claudication, Denies decreased exercise tolerance, Denies dyspnea on exertion, Denies edema, Denies high blood pressure, Denies irregular heart beat, Denies leg edema, Denies lightheadedness, Denies orthopnea, Denies palpitations, Denies paroxysmal nocturnal dyspnea, Denies phlebitis, Denies rapid heart beat, Denies shortness of breath, Denies syncope Respiratory: Reports as per HPI, Denies congestion, Denies cough, Denies cough with sputum, Denies dyspnea, Denies excessive sputum, Denies hemoptysis, Denies home oxygen, Denies pain, Denies pain on inspiration, Denies pleurisy, Denies respiratory infections, Denies sleep apnea, Denies snoring, Denies wheezing Gastrointestinal: Reports as per HPI, Denies abdominal pain, Denies belching, Denies bloating, Denies BRBPR, Denies change in bowel habits, Denies coffee ground emesis, Denies constipation, Denies diarrhea, Denies dyspepsia, Denies early satiety, Denies excessive gas, Denies heartburn, Denies hematemesis, Denies hematochezia, Denies indigestion, Denies jaundice, Denies lactose intolerance, Denies loss of appetite, Denies melena, Denies nausea, Denies vomiting Genitourinary: Reports as per HPI Musculoskeletal: Reports as per HPI, Reports gait dysfunction, Reports limitation of motion, Denies arm numbness/tingling, Denies atrophy, Denies fractures, Denies frequent falls, Denies hot joints, Denies leg numbness/tingling, Denies loss of height, Denies low back pain, Denies morning stiffness, Denies muscle cramps, Denies muscle weakness, Denies myalgias, Denies neck pain, Denies neck stiffness, Denies prior amputations, Denies redness of joints, Denies shooting arm pain, Denies shooting leg pain Integumentary: Reports as per HPI, Denies acne, Denies boils, Denies brittle nails, Denies change in hair/nails, Denies color changes, Denies darkening of skin, Denies depigmentation, Denies dryness, Denies foot/leg ulcers, Denies growths, Denies hirsutism, Denies lesions, Denies onychomycosis, Denies pruritus, Denies rash, Denies sores, Denies striae, Denies unusual bruising, Denies wounds Neurological: Reports as per HPI, Reports gait dysfunction, Reports memory loss, Denies aphasia, Denies ataxia, Denies balance difficulties, Denies burning pain, Denies change in mentation, Denies change in smell/taste, Denies change in speech, Denies confusion, Denies convulsions, Denies double vision, Denies head injury, Denies headaches, Denies hearing difficulties, Denies lack of coordin ation, Denies loss of vision, Denies migraines, Denies motor disturbance, Denies numbness, Denies paralysis, Denies paresthesias, Denies seizures, Denies sensory deficit, Denies spasticity, Denies syncope, Denies tic, Denies tingling, Denies transient paralysis, Denies tremors, Denies vertigo, Denies weakness, Denies visual changes Psychiatric: Denies depression, denies anxiety Endocrine: Denies abnormal blood sugar Hematologic/Lymphatic: Reports as per HPI, Denies easy bleeding, Denies easy bruising, Denies lymphadenopathy, Denies lymphedema, Denies thrombophilia Allergic/Immunologic: Reports as per HPI, Denies allergic rhinitis, Denies anaphylaxis, Denies angioedema, Denies gluten intolerance, Denies persistent infections, Denies seasonal allergies, Denies urticaria, Denies wheezing - Constitutional General appearance: no average body habitus, cooperative, no disheveled, no mild distress, no morbidly obese, no acute distress, obese, no severe distress, no thin - EENT Eyes: no abnormal pupil, anicteric sclerae, no disc margins sharp, no edentulous, no EOMI, PERRLA, no fundus normal, no photophobia, dentition normal, no poor dentition, no ptosis, no scleral icterus, no normal appearance ENT: no hard of hearing, no hearing grossly normal, no NA/AT, no normal oropharynx, no other, no pharyngeal erythema, no thrush - Respiratory Respiratory: bilateral: CTA, negative: diminished, dullness, rales, rhonchi - Cardiovascular Rhythm: regular Heart sounds: normal: S1, S2 Abnormal Heart Sounds: no systolic murmur, no diastolic murmur, no rub, no S3 Gallop, no S4 Gallop, no click, no other - Gastrointestinal General gastrointestinal: normal bowel sounds, soft - Integumentary Integumentary: normal, normal turgor - Neurologic Neurologic: CNII-XII intact - Musculoskeletal Musculoskeletal: gait normal, strength equal bilaterally Dressing in place to the right knee with ice packs. No breakthrough bleeding. Patient has legs elevated in recliner. - Psychiatric Psychiatric: A&O x's 3, appropriate affect - Labs CBC & Chem 7: 12/26/18 07:56 12/25/18 07:10 Assessment and Plan Plan: 1. Right total knee arthroplasty performed on 12/25/2018. Continue current pain control, incentive spirometry, DVT prophylaxis, 2. Hypertension. Continue lisinopril increased to 10 mg daily. Lasix will be resumed.patient started on Lasix 20 IV daily which will transition to his oral home dose. 3. Hyperlipidemia. Continue atorvastatin 40 mg daily. 4. CAD with prior stenting 5. Moderate MR based on echocardiogram August 2018 with EF of 50%, on Lasix daily hold 6. CAD with prior stenting of the circumflex and left-sided 08/25/2017 Lexiscan was performed the prior 2017 by cardiology AB I normal 02/09/2018 until Dopplex upper 17 normal 12/25/2017 carotid Dopplers mild disease bilateral ICA without any significant stenosis 7. History of testicular cancer 8. BPH without lower tract symptomatology DVT prophylaxis. Lovenox. GI prophylaxis [facility]: [facility] Impression and plan of care have been directed as dictated by the signing physician. Hui Ortega nurse practitioner acting as scribe for signing physician.
[2018-12-27] MEDS: CHOLECALCIFEROL 1,000 UNIT TAB PO SCH (20:35)
[2018-12-27] MEDS: DONEPEZIL 5 MG TAB PO SCH (20:35)
[2018-12-27] MEDS: LATANOPROST 0.005% OPHTH DROPS 2.5 ML BTL BOTH EYES SCH (20:35)
[2018-12-27] MEDS: SENNOSIDES-DOCUSATE SODIUM 1 EACH TAB PO SCH (20:36)
[2018-12-27] MEDS: LORATADINE 10 MG TAB PO SCH (20:36)
[2018-12-28] MEDS: LACTATED RINGERS 1,000 ML IV SCH (05:11)
[2018-12-28 07:35] LABS: African American GFR (CKD) >90 (>60 ml/min/1.73 sqM); Anion Gap 9 mmol/L; Blood Urea Nitrogen 18 mg/dL (9-20); Calcium 9.1 mg/dL (8.4-10.2); Carbon Dioxide 27 mmol/L (22-30); Chloride 102 mmol/L (98-107); Glucose 99 mg/dL (74-99); Potassium 3.9 mmol/L (3.5-5.1); Sodium 138 mmol/L (137-145)
[2018-12-28 08:11] VITALS: BP 130/75; PULSE 89; RESP 16; TEMP 97.9
[2018-12-28] MEDS ORDERED: LISINOPRIL 10 MG TAB PO SCH (09:00)
[2018-12-28] MEDS: TIMOLOL 0.25% OPHTH DROPS 5 ML BTL BOTH EYES SCH (10:19)
[2018-12-28] MEDS: FUROSEMIDE 10 MG/ML 2 ML VIAL IV SCH (10:19)
[2018-12-28] MEDS: FERROUS SULFATE 325 MG TAB PO SCH (10:19)
[2018-12-28] MEDS: ATORVASTATIN 40 MG TAB PO SCH (10:19)
[2018-12-28] MEDS: ENOXAPARIN 30 MG/0.3 ML SYRINGE SQ SCH (10:20)
--- NOTE | 2018-12-28 10:26 | P.PN ---
Subjective Progress Note Date: 12/28/18 Principal diagnosis: Status post right total knee arthroplasty Patient evaluated at bedside today, his family present. He is resting comfortably in the chair. Patient denies any chest pain or shortness of breath this time. Objective - Vital Signs Vital signs: Vital Signs Temp 97.9 F 12/28/18 07:00 Pulse 89 12/28/18 07:00 Resp 16 12/28/18 07:00 BP 130/75 12/28/18 07:00 Pulse Ox 96 12/28/18 07:00 Intake & Output 12/27/18 12/28/18 12/28/18 18:59 06:59 18:59 Intake Total 300 400 Output Total 500 Balance 300 -500 400 Intake: Oral 300 400 Output: Urine 500 Other: Voiding Method Toilet Urinal Urinal # Voids 4 2 - Exam Right lower extremity: Incision is clean, dry, and intact. The exofin fusion tape is in good condition. There is minimal soft tissue swelling and ecchymosis surrounding the medial and lateral aspects of the incision. Calf is soft, no tenderness with palpation. Plantar flexion, dorsiflexion, EHL, FHL are intact. Sensory exam to light touch throughout the extremity is intact, dorsal pedis pulses 2+. - Labs CBC & Chem 7: 12/26/18 07:56 12/28/18 06:33 Assessment and Plan Plan: Assessment: 1. Postop day #3 status post right total knee arthroplasty Plan: Pain control, plan for discharge on Tramadol 50mg GI and DVT prophylaxis, Lovenox 30mg subq q12hr Ice and elevate/daily dressing changes Encourage incentive spirometer Continue with physical therapy Medical recommendations Discharge planning: Patient will be discharged to rehab today Time with Patient: Less than 30
--- NOTE | 2018-12-28 10:28 | P.DS ---
Providers Date of admission: 12/25/18 06:04 Expected date of discharge: 12/28/18 Attending physician: Edilson Sherman Consults: 12/25/18 09:34 Consult Physician Routine Consulting Provider: Sandra Hopson Consult Reason/Comments: medical management Do you want consulting provider notified?: Yes Primary care physician: Stated None Hospital Course: Date of admission: 12/25/2018 Date of discharge: 12/28/2018 Admission diagnosis: Status post right total knee arthroplasty Discharge diagnosis: Same Attending physician: Dr. Sherman Surgical procedures: Right total knee arthroplasty Brief history: Patient is a 83-year-old male with a history of progressive primary right knee osteoarthritis. At this point patient has failed conservative treatment measures and has opted to proceed with a elective right total knee arthroplasty. Hospital course: Details of patient's surgery can be found in operative report. Patient tolerated the procedure well and was subsequently transported to orthopedic floor. Patient's orthopeidc and medical care was provided daily. Patient had daily laboratory tests performed for evaluation of overall blood counts. Patient had daily physical therapy to include strengthening range of motion as well as education with walker ambulation. Patient had daily CPM usage as part of their physical therapy program. Patient was treated with Lovenox for their postoperative DVT prophylaxis during their inpatient stay. Patient was noted to have a relatively uneventful postoperative course. Patient reported satisfactory pain control with oral pain medications by postoperative day 0. Patient showed satisfactory progress with physical therapy. Patient moved steadily through the program and had no difficulty meeting the goals by postoperative day 3. Given patient's otherwise satisfactory course and having met physical therapy goals, plan is to discharge patient rehab on postoperative day 3. Discharge condition/disposition: Patient will be discharged rehab in stable condition. Discharge medications: Instructions are given on resumption of patient's normal daily medications per primary care recommendation, in addition patient will be prescribed tramadol 50 mg, Lovenox 30 mg. Discharge instructions: 1. Wound care and infection precautions, keep incision dry and covered while showering, no lotions, creams, moisturizers. No soaking, tubs, pools, hottubs. Do not scrub over the incision. 2. Weight-bear as tolerated with walker / cane until follow-up. 3. Ice and elevate when necessary. Do not exceed 20 minutes per hour with ice pack. 4. Utilize compression sleeve until seen at first follow up appointment. 5. Visiting nursing care. 6. Home physical therapy including home CPM. 7. Pain meds and anticoagulants per prescription. 8. Pain medication has potential to cause constipation. Increase oral fluid and fiber intake. Contact primary care provider if you have not had a bowel movement within 48 hours after discharge 9. No anti-inflammatory medication until discussed at first post operative visit, this including Motrin, Aleve, Mobic, Diclofenac. 10. Follow up in office at 2 weeks postop with Jonnathan Wiley PA-C 11. Follow up with your primary care doctor 7-10 days after discharge. 12. Contact [facility] with any questions, . Procedures: Right total knee arthroplasty Patient Condition at Discharge: Good Plan - Discharge Summary Discharge Rx Participant: Yes New Discharge Prescriptions: New Enoxaparin [Lovenox] 30 mg SQ Q12H #24 syringe traMADol HCl [Ultram] 50 mg PO Q6H PRN #28 tab PRN Reason: Pain No Action Iuka-3 Fatty Acids/Fish Oil [Fish Oil 1,000 mg Softgel] 1,000 mg PO DAILY Cholecalciferol [Vitamin D3 (25 Mcg = 1000 Iu)] 2,000 unit PO HS Vits A,C,E/Lutein/Minerals [Ocuvite with Lutein Tablet] 1 tab PO DAILY Lisinopril [Zestril] 5 mg PO QAM Loratadine [Claritin] 10 mg PO HS Donepezil HCl [Aricept] 5 mg PO HS Atorvastatin [Lipitor] 40 mg PO DAILY Furosemide [Lasix] 20 mg PO DAILY Ferrous Sulfate [Feosol] 325 mg PO DAILY Aspirin [Adult Low Dose Aspirin EC] 81 mg PO QAM Acetaminophen [Tylenol Arthritis] 650 mg PO TID PRN PRN Reason: Pain Timolol 0.25% Ophth Soln [Timoptic 0.25% Ophth Soln] Latanoprost Ophth [Xalatan 0.005%] Discharge Medication List Cholecalciferol [Vitamin D3 (25 Mcg = 1000 Iu)] 2,000 unit PO HS 09/11/15 [History] Iuka-3 Fatty Acids/Fish Oil [Fish Oil 1,000 mg Softgel] 1,000 mg PO DAILY 09/11/15 [History] Vits A,C,E/Lutein/Minerals [Ocuvite with Lutein Tablet] 1 tab PO DAILY 04/22/17 [History] Donepezil HCl [Aricept] 5 mg PO HS 07/16/18 [History] Lisinopril [Zestril] 5 mg PO QAM 07/16/18 [History] Loratadine [Claritin] 10 mg PO HS 07/16/18 [History] Acetaminophen [Tylenol Arthritis] 650 mg PO TID PRN 12/21/18 [History] Aspirin [Adult Low Dose Aspirin EC] 81 mg PO QAM 12/21/18 [History] Atorvastatin [Lipitor] 40 mg PO DAILY 12/21/18 [History] Ferrous Sulfate [Feosol] 325 mg PO DAILY 12/21/18 [History] Furosemide [Lasix] 20 mg PO DAILY 12/21/18 [History] Latanoprost Ophth [Xalatan 0.005%] 12/25/18 [History] Timolol 0.25% Ophth Soln [Timoptic 0.25% Ophth Soln] 12/25/18 [History] Enoxaparin [Lovenox] 30 mg SQ Q12H #24 syringe 12/28/18 [Rx] traMADol HCl [Ultram] 50 mg PO Q6H PRN #28 tab 12/28/18 [Rx] Follow up Appointment(s)/Referral(s): Tino Rhodes, [NON-STAFF] - As Needed Mal Wiley PAC [PHYSICIAN QUALITY [employer]INEER [employer]ICE] - 01/11/19 1:50 pm Ned Man MD [REFERRING] - 1 Week Activity/Diet/Wound Care/Special Instructions: Orthopedic Discharge Instructions: 1. Wound care and infection precautions, keep incision dry and covered while showering, no lotions, creams, moisturizers. No soaking, pools, hot tubs. Do not scrub over incision. 2. Weight-bear as tolerated with walker / cane until follow-up. 3. Ice and elevate when necessary. Do not exceed 20 minutes per hour with ice pack. 4. Utilize compression sleeve until seen at first follow up appointment. 5. Pain meds and anticoagulants per prescription. 6. Pain medication has potential to cause constipation. Increase oral fluid and fiber intake. Contact primary care provider if you have not had a bowel movement within 48 hours after discharge. 7. No anti-inflammatory medication until discussed at first post operative visit, this including Motrin, Aleve, Mobic, Diclofenac. 8. Follow up in office at 2 weeks postop with Jonnathan Wiley PA-C 9. Follow up with your primary care doctor 7-10 days after discharge. 10. Contact [facility] with any questions, . Discharge Disposition: TRANSFER TO SNF/ECF
--- NOTE | 2018-12-28 14:34 | P.PN ---
Subjective Progress Note Date: 12/28/18 This is an 83-year-old patient of Dr. Man with known history of CAD and nausea arthritis hypertension, hyperlipidemia admitted service of Dr. Sherman for elective right total knee arthroplasty secondary to advancing DJD, patient underwent right total knee. Last seen on 12/25/2018, without any perioperative complications. Patient denies any chest pain or palpitations, no difficulty of breathing, patient denies any shortness of breath, patient has short-term memory losses, no aspirin events, no dysphagia no nausea 12/26: Patient has been afebrile, heart rate 72, blood pressure 123/73, pulse ox 96% on room air. Lab work reveals a white count of 11.6, hemoglobin 12.0. Patient is on Q adductor catheter in place for pain control. Patient states he is urinating okay. His appetite is good. He denies any nausea. He states he slept last night. He states he is planning to go to subacute rehab which is [facility]. 12/27: Patient remains afebrile, heart rate 92, blood pressure 160/90, pulse ox 95% on room air. No repeat labs for today. Patient states that he is concerned because he is having difficulty ambulating. He is working with physical therapy and occupational therapy. This to support his need for subacute rehab. Noted that his blood pressure is elevated and we will increase lisinopril to 10 mg daily. Lasix 20 mg IV added for lower extremity edema. Patient is scheduled for discharge to rehab tomorrow. 12/28: Patient has been afebrile, blood pressure 114/71, pulse ox 97% on room air, heart rate 85. Basic metabolic panel within normal limits. The patient is scheduled for discharge to [facility] today with right and 1 PM. Patient will be on heparin subcu for DVT prophylaxis. Objective - Vital Signs Vital signs: Vital Signs Temp 98.1 F 12/28/18 00:57 Pulse 85 12/28/18 00:57 Resp 18 12/28/18 00:57 BP 114/71 12/28/18 00:57 Pulse Ox 97 12/28/18 00:57 Intake & Output 12/27/18 12/28/18 12/28/18 18:59 06:59 18:59 Intake Total 300 Output Total 500 Balance 300 -500 Intake: Oral 300 Output: Urine 500 Other: Voiding Method Toilet Urinal Urinal # Voids 4 2 - Exam Review of Systems Constitutional: Reports as per HPI, Denies anorexia, Denies chills, Denies chronic headaches, Denies chronic pain, Denies daytime sleepiness, Denies fatigue, Denies fever, Denies lethargy, Denies malaise, Denies night sweats, Denies poor appetite, Denies sweats, Denies weakness, Denies weight gain, Denies weight loss Ears: bilateral: decreased hearing Ears, nose, mouth and throat: Reports as per HPI Cardiovascular: Reports as per HPI, Denies chest pain, Denies claudication, Denies decreased exercise tolerance, Denies dyspnea on exertion, Denies edema, Denies high blood pressure, Denies irregular heart beat, Denies leg edema, Denies lightheadedness, Denies orthopnea, Denies palpitations, Denies paroxysmal nocturnal dyspnea, Denies phlebitis, Denies rapid heart beat, Denies shortness of breath, Denies syncope Respiratory: Reports as per HPI, Denies congestion, Denies cough, Denies cough with sputum, Denies dyspnea, Denies excessive sputum, Denies hemoptysis, Denies home oxygen, Denies pain, Denies pain on inspiration, Denies pleurisy, Denies respiratory infections, Denies sleep apnea, Denies snoring, Denies wheezing Gastrointestinal: Reports as per HPI, Denies abdominal pain, Denies belching, Denies bloating, Denies BRBPR, Denies change in bowel habits, Denies coffee ground emesis, Denies constipation, Denies diarrhea, Denies dyspepsia, Denies early satiety, Denies excessive gas, Denies heartburn, Denies hematemesis, Denies hematochezia, Denies indigestion, Denies jaundice, Denies lactose intolerance, Denies loss of appetite, Denies melena, Denies nausea, Denies vomiting Genitourinary: Reports as per HPI Musculoskeletal: Reports as per HPI, Reports gait dysfunction, Reports limitation of motion, Denies arm numbness/tingling, Denies atrophy, Denies fractures, Denies frequent falls, Denies hot joints, Denies leg numbness/tingling, Denies loss of height, Denies low back pain, Denies morning stiffness, Denies muscle cramps, Denies muscle weakness, Denies myalgias, Denies neck pain, Denies neck stiffness, Denies prior amputations, Denies redness of joints, Denies shooting arm pain, Denies shooting leg pain Integumentary: Reports as per HPI, Denies acne, Denies boils, Denies brittle nails, Denies change in hair/nails, Denies color changes, Denies darkening of skin, Denies depigmentation, Denies dryness, Denies foot/leg ulcers, Denies will wths, Denies hirsutism, Denies lesions, Denies onychomycosis, Denies pruritus, Denies rash, Denies sores, Denies striae, Denies unusual bruising, Denies wounds Neurological: Reports as per HPI, Reports gait dysfunction, Reports memory loss, Denies aphasia, Denies ataxia, Denies balance difficulties, Denies burning pain, Denies change in mentation, Denies change in smell/taste, Denies change in speech, Denies confusion, Denies convulsions, Denies double vision, Denies head injury, Denies headaches, Denies hearing difficulties, Denies lack of systems coordinator rdination, Denies loss of vision, Denies migraines, Denies motor disturbance, Denies numbness, Denies paralysis, Denies paresthesias, Denies seizures, Denies sensory deficit, Denies spasticity, Denies syncope, Denies tic, Denies tingling, Denies transient paralysis, Denies tremors, Denies vertigo, Denies weakness, Denies visual changes Psychiatric: Denies depression, denies anxiety Endocrine: Denies abnormal blood sugar Hematologic/Lymphatic: Reports as per HPI, Denies easy bleeding, Denies easy bruising, Denies lymphadenopathy, Denies lymphedema, Denies thrombophilia Allergic/Immunologic: Reports as per HPI, Denies allergic rhinitis, Denies anaphylaxis, Denies angioedema, Denies gluten intolerance, Denies persistent infections, Denies seasonal allergies, Denies urticaria, Denies wheezing - Constitutional General appearance: no average body habitus, cooperative, no disheveled, no mild distress, no morbidly obese, no acute distress, obese, no severe distress, no thin - EENT Eyes: no abnormal pupil, anicteric sclerae, no disc margins sharp, no edentulous, no EOMI, PERRLA, no fundus normal, no photophobia, dentition normal, no poor dentition, no ptosis, no scleral icterus, no normal appearance ENT: no hard of hearing, no hearing grossly normal, no NA/AT, no normal oropharynx, no other, no pharyngeal erythema, no thrush - Respiratory Respiratory: bilateral: CTA, negative: diminished, dullness, rales, rhonchi - Cardiovascular Rhythm: regular Heart sounds: normal: S1, S2 Abnormal Heart Sounds: no systolic murmur, no diastolic murmur, no rub, no S3 Gallop, no S4 Gallop, no click, no other - Gastrointestinal General gastrointestinal: normal bowel sounds, soft - Integumentary Integumentary: normal, normal turgor - Neurologic Neurologic: CNII-XII intact - Musculoskeletal Musculoskeletal: gait normal, strength equal bilaterally Dressing in place to the right knee with ice packs. No breakthrough bleeding. Patient has legs elevated in recliner. - Psychiatric Psychiatric: A&O x's 3, appropriate affect - Labs CBC & Chem 7: 12/26/18 07:56 12/28/18 06:33 Assessment and Plan Plan: 1. Right total knee arthroplasty performed on 12/25/2018. Continue current pain control, incentive spirometry, DVT prophylaxis, 2. Hypertension. Continue lisinopril increased to 10 mg daily. Lasix will be resumed.patient started on Lasix 20 IV daily which will transition to his oral home dose. 3. Hyperlipidemia. Continue atorvastatin 40 mg daily. 4. CAD with prior stenting 5. Moderate MR based on echocardiogram August 2018 with EF of 50%, on Lasix daily hold 6. CAD with prior stenting of the circumflex and left-sided 08/25/2017 Lexiscan was performed the prior 2017 by cardiology AB I normal 02/09/2018 until Dopplex upper 17 normal 12/25/2017 carotid Dopplers mild disease bilateral ICA without any significant stenosis 7. History of testicular cancer 8. BPH without lower tract symptomatology DVT prophylaxis. Lovenox. GI prophylaxis Discharge plan: [facility] today Impression and plan of care have been directed as dictated by the signing physician. Hui Ortega nurse practitioner acting as scribe for signing physician.
== END 2018-12-28 13:06 | DRG 470 ==
LOC: 2ORMAIN 06:04 → 4SSUR 10:26
PROVIDERS: ADMIT Orthopaedic Surgery; ATTEND Orthopaedic Surgery
PROC: 0SRC0J9 Replacement of Right Knee Joint with Synthetic Substitute, Cemented, Open Approach (ICD-10-PCS; principal; 2018-12-25 08:00)
DX: M17.11 Unilateral primary osteoarthritis, right knee (principal); I25.10 Atherosclerotic heart disease of native coronary artery without angina pectoris; E78.5 Hyperlipidemia, unspecified; I10 Essential (primary) hypertension; I34.0 Nonrheumatic mitral (valve) insufficiency; N40.0 Benign prostatic hyperplasia without lower urinary tract symptoms; Z95.5 Presence of coronary angioplasty implant and graft; Z82.3 Family history of stroke; Z82.5 Family history of asthma and other chronic lower respiratory diseases; Z79.82 Long term (current) use of aspirin; Z79.899 Other long term (current) drug therapy; Z85.47 Personal history of malignant neoplasm of testis
CPT/HCPCS: 80048; 80053; 85025; 85027; 88300

== ENCOUNTER 2019-06-05 13:49 | Observation (INO) | payer MEDICARE, BC ==
[2019-06-05] MEDS ORDERED: NITROGLYCERIN SL TABS 0.4 MG TAB SUBLINGUAL STA (14:18)
[2019-06-05] MEDS ORDERED: FUROSEMIDE 10 MG/ML 4 ML VIAL IV STA (14:20)
[2019-06-05] MEDS ORDERED: ASPIRIN 325 MG TAB PO STA (14:20)
--- NOTE | 2019-06-05 14:24 | ED ---
General Adult HPI - General Chief complaint: Shortness of Breath Stated complaint: SOB Time Seen by Provider: 06/05/19 14:10 Source: patient, RN notes reviewed, old records reviewed Mode of arrival: wheelchair Limitations: no limitations - History of Present Illness Initial comments: 84-year-old male presenting for evaluation of dyspnea. Patient is in moderate respiratory distress on initial evaluation. He had been walking outside in the cold after going to the grocery store. He was looking for his car for some time. He develops significant dyspnea. Denies central chest pain. No history of asthma, no history of COPD. He is a nonsmoker. No history DVT or PE. No history of congestive heart failure although he is currently at 20 mg Lasix d aily. Pupils were sudden in onset. - Related Data Home Medications Medication Instructions Recorded Confirmed Vits A,C,E/Lutein/Minerals 1 tab PO DAILY 04/22/17 06/05/19 [Ocuvite with Lutein Tablet] Donepezil HCl [Aricept] 5 mg PO HS 07/16/18 06/05/19 Loratadine [Claritin] 10 mg PO DAILY 07/16/18 06/05/19 Aspirin [Adult Low Dose Aspirin EC] 81 mg PO DAILY 12/21/18 06/05/19 Atorvastatin [Lipitor] 40 mg PO DAILY 12/21/18 06/05/19 Ferrous Sulfate [Iron (65 MG 325 mg PO DAILY 12/21/18 06/05/19 Elemental)] Furosemide [Lasix] 20 mg PO DAILY 12/21/18 06/05/19 Acetaminophen Tab [Tylenol Tab] 650 mg PO Q6H PRN 06/05/19 06/05/19 Cholecalciferol (Vitamin D3) 2,000 unit PO DAILY 06/05/19 06/05/19 [Vitamin D3] Latanoprost/Pf [Latanoprost 0.005% 1 drop BOTH EYES HS 06/05/19 06/05/19 Eye Drop] Lisinopril [Zestril] 5 mg PO DAILY 06/05/19 06/05/19 [place]-3 Fatty Acids/Fish Oil [Fish 1 cap PO DAILY 06/05/19 06/05/19 Oil 1,000 mg Softgel] Timolol 0.25% Ophth Soln [Timoptic 1 drop BOTH EYES DAILY 06/05/19 06/05/19 0.25% Ophth Soln] Allergies Allergy/AdvReac Type Severity Reaction Status Date / Time No Known Allergies Allergy Verified 06/05/19 16:17 Review of Systems ROS Statement: Those systems with pertinent positive or pertinent negative responses have been documented in the HPI. ROS Other: All systems not noted in ROS Statement are negative. Past Medical History Past Medical History: Chest Pain / Angina, GERD/Reflux, Osteoarthritis (OA) Additional Past Medical History / Comment(s): chest pain 2-3 months ago, History of Any Multi-Drug Resistant Organisms: None Reported Past Surgical History: Appendectomy Additional Past Surgical History / Comment(s): Right knee arthroscopic partial meniscectomy. Colonoscopy October 2015 EGD with biopsy November 2009. Colonoscopy November 2009 deviated septum repair in 1988 appendectomy September 2015 Byrne's cyst removal Past Anesthesia/Blood Transfusion Reactions: No Reported Reaction Date of Last Stent Placement:: 08/25/17 Past Psychological History: No Psychological Hx Reported Smoking Status: Never smoker Past Alcohol Use History: Occasional Past Drug Use History: None Reported - Past Family History Father History Unknown: Yes Family Medical History: Asthma, CVA/TIA Additional Family Medical History / Comment(s): Father in his 60s from a head injury secondary to a fall. Mother History Unknown: Yes Family Medical History: No Reported History, Rheumatoid Arthritis (RA) Additional Family Medical History / Comment(s): Mother from old age in her 90s. Brother(s) Additional Family Medical History / Comment(s): Patient is a total of 4 brothers, one after falling off a motor home. 3 are alive and patient is not aware of any medical problems. Sister(s) Additional Family Medical History / Comment(s): Patient has 1 sister with no known medical problems Daughter(s) Additional Family Medical History / Comment(s): Patient has 1 daughter and 2 sons with no major medical problems. General Exam Limitations: no limitations General appearance: alert, in distress Head exam: Present: atraumatic, normocephalic Eye exam: Present: normal appearance, PERRL ENT exam: Present: normal exam Neck exam: Present: other (JDV) Respiratory exam: Present: respiratory distress, wheezes, rales, accessory musc le use, decreased breath sounds Cardiovascular Exam: Present: normal rhythm, tachycardia GI/Abdominal exam: Present: soft. Absent: distended, tenderness, guarding Extremities exam: Present: pedal edema (trace) Neurological exam: Present: alert, oriented X3 Psychiatric exam: Present: normal affect, normal mood Skin exam: Present: warm, dry, intact. Absent: cyanosis, diaphoretic Course Vital Signs 06/05/19 06/05/19 06/05/19 13:53 14:05 14:16 Temperature 97.0 F L Pulse Rate 117 H 102 H Respiratory 32 H 28 H 27 H Rate Blood Pressure 185/111 179/107 O2 Sat by Pulse 88 L 97 Oximetry 06/05/19 06/05/19 06/05/19 14:46 15:38 15:40 Temperature Pulse Rate 100 84 80 Respiratory 18 20 Rate Blood Pressure 99/79 128/99 O2 Sat by Pulse 98 Oximetry 06/05/19 15:48 Temperature Pulse Rate 80 Respiratory Rate Blood Pressure O2 Sat by Pulse Oximetry EKG Findings - EKG Comments: EKG Findings:: EKG: Sinus tachycardia with no ST segment elevation, rate of 104, MD interval 174, QRS duration 88, QTC 428 Medical Decision Making - Medical Decision Making 84-year-old male presenting with sudden onset dyspnea while being out in the cold. He is hypoxic, tachypneic and tachycardic on initial evaluation. He has decreased air entry, is using accessory muscles, he has wheezing and rales throughout lung auscultation. He is hypertensive. He is given nitroglycerin, Lasix, albuterol Atrovent, steroids. Chest x-ray obtained, negative for pneumothorax, there is a left upper lobe nodule, no other acute findings, no focal pneumonia. He has a normal CBC, normal CMP, negative troponin, negative BMP. Influenza testing is negative. On reevaluation is improved air entry mild tachypnea. He will be placed in observation for continued steroids, albuterol, treatment of reactive airway disease. Discussed with the admitting physician Dr. De La Vega - Lab Data Result diagrams: 06/05/19 14:14 06/05/19 14:14 Lab Results 06/05/19 06/05/19 06/05/19 Range/Units 14:14 14:14 14:14 WBC 9.5 (3.8-10.6) k/uL RBC 5.23 (4.30-5.90) m/uL Hgb 15.6 (13.0-17.5) gm/dL Hct 47.5 (39.0-53.0) % MCV 90.9 (80.0-100.0) fL MCH 29.9 (25.0-35.0) pg MCHC 32.9 (31.0-37.0) g/dL RDW 14.8 (11.5-15.5) % Plt Count 296 (150-450) k/uL Neutrophils % 61 % Lymphocytes % 25 % Monocytes % 7 % Eosinophils % 4 % Basophils % 2 % Neutrophils # 5.8 (1.3-7.7) k/uL Lymphocytes # 2.3 (1.0-4.8) k/uL Monocytes # 0.7 (0-1.0) k/uL Eosinophils # 0.3 (0-0.7) k/uL Basophils # 0.2 (0-0.2) k/uL PT (9.0-12.0) sec INR (<1.2) APTT (22.0-30.0) sec Sodium 139 (137-145) mmol/L Potassium 4.9 (3.5-5.1) mmol/L Chloride 101 (98-107) mmol/L Carbon Dioxide 28 (22-30) mmol/L Anion Gap 10 mmol/L BUN 17 (9-20) mg/dL Creatinine 0.84 (0.66-1.25) mg/dL Est GFR (CKD-EPI)AfAm >90 (>60 ml/min/1.73 sqM) Est GFR (CKD-EPI)NonAf 80 (>60 ml/min/1.73 sqM) Glucose 141 H (74-99) mg/dL Plasma Lactic Acid [place] (0.7-2.0) mmol/L Calcium 10.0 (8.4-10.2) mg/dL Magnesium 1.9 (1.6-2.3) mg/dL Total Bilirubin 0.9 (0.2-1.3) mg/dL AST 38 (17-59) U/L ALT 43 (4-49) U/L Alkaline Phosphatase 102 (38-126) U/L Troponin I (0.000-0.034) ng/mL NT-Pro-B Natriuret Pep pg/mL Total Protein 8.0 (6.3-8.2) g/dL Albumin 4.9 (3.5-5.0) g/dL Influenza Type A RNA Not Detected (Not Detectd) Influenza Type B (PCR) Not Detected (Not Detectd) 06/05/19 06/05/19 06/05/19 Range/Units 14:14 14:14 14:14 WBC (3.8-10.6) k/uL RBC (4.30-5.90) m/uL Hgb (13.0-17.5) gm/dL Hct (39.0-53.0) % MCV (80.0-100.0) fL MCH (25.0-35.0) pg MCHC (31.0-37.0) g/dL RDW (11.5-15.5) % Plt Count (150-450) k/uL Neutrophils % % Lymphocytes % % Monocytes % % Eosinophils % % Basophils % % Neutrophils # (1.3-7.7) k/uL Lymphocytes # (1.0-4.8) k/uL Monocytes # (0-1.0) k/uL Eosinophils # (0-0.7) k/uL Basophils # (0-0.2) k/uL PT 9.8 (9.0-12.0) sec INR 0.9 (<1.2) APTT 21.2 L (22.0-30.0) sec Sodium (137-145) mmol/L Potassium (3.5-5.1) mmol/L Chloride (98-107) mmol/L Carbon Dioxide (22-30) mmol/L Anion Gap mmol/L BUN (9-20) mg/dL Creatinine (0.66-1.25) mg/dL Est GFR (CKD-EPI)AfAm (>60 ml/min/1.73 sqM) Est GFR (CKD-EPI)NonAf (>60 ml/min/1.73 sqM) Glucose (74-99) mg/dL Plasma Lactic Acid Brent[place] 1.7 (0.7-2.0) mmol/L Calcium (8.4-10.2) mg/dL Magnesium (1.6-2.3) mg/dL Total Bilirubin (0.2-1.3) mg/dL AST (17-59) U/L ALT (4-49) U/L Alkaline Phosphatase (38-126) U/L Troponin I (0.000-0.034) ng/mL NT-Pro-B Natriuret Pep 55 pg/mL Total Protein (6.3-8.2) g/dL Albumin (3.5-5.0) g/dL Influenza Type A RNA (Not Detectd) Influenza Type B (PCR) (Not Detectd) 06/05/19 Range/Units 14:14 WBC (3.8-10.6) k/uL RBC (4.30-5.90) m/uL Hgb (13.0-17.5) gm/dL Hct (39.0-53.0) % MCV (80.0-100.0) fL MCH (25.0-35.0) pg MCHC (31.0-37.0) g/dL RDW (11.5-15.5) % Plt Count (150-450) k/uL Neutrophils % % Lymphocytes % % Monocytes % % Eosinophils % % Basophils % % Neutrophils # (1.3-7.7) k/uL Lymphocytes # (1.0-4.8) k/uL Monocytes # (0-1.0) k/uL Eosinophils # (0-0.7) k/uL Basophils # (0-0.2) k/uL PT (9.0-12.0) sec INR (<1.2) APTT (22.0-30.0) sec Sodium (137-145) mmol/L Potassium (3.5-5.1) mmol/L Chloride (98-107) mmol/L Carbon Dioxide (22-30) mmol/L Anion Gap mmol/L BUN (9-20) mg/dL Creatinine (0.66-1.25) mg/dL Est GFR (CKD-EPI)AfAm (>60 ml/min/1.73 sqM) Est GFR (CKD-EPI)NonAf (>60 ml/min/1.73 sqM) Glucose (74-99) mg/dL Plasma Lactic Acid [place] (0.7-2.0) mmol/L Calcium (8.4-10.2) mg/dL Magnesium (1.6-2.3) mg/dL Total Bilirubin (0.2-1.3) mg/dL AST (17-59) U/L ALT (4-49) U/L Alkaline Phosphatase (38-126) U/L Troponin I <0.012 (0.000-0.034) ng/mL NT-Pro-B Natriuret Pep pg/mL Total Protein (6.3-8.2) g/dL Albumin (3.5-5.0) g/dL Influenza Type A RNA (Not Detectd) Influenza Type B (PCR) (Not Detectd) Disposition Clinical Impression: Reactive airway disease Disposition: ADMITTED IP TO THIS HOSP Condition: Stable Is patient prescribed a controlled substance at d/c from ED?: No Referrals: None,Stated [Primary Care Provider] - 1-2 days Decision to Admit Reason: Admit from EC Decision Date: 06/05/19 Decision Time: 16:25
[2019-06-05 14:29] LABS: Basophils # (A) 0.2 k/uL (0-0.2); Basophils % (A) 2 %; Eosinophils # (A) 0.3 k/uL (0-0.7); Eosinophils % (A) 4 %; HCT 47.5 % (39.0-53.0); HGB 15.6 gm/dL (13.0-17.5); Lymphocytes # (A) 2.3 k/uL (1.0-4.8); Lymphocytes % (A) 25 %; MCH 29.9 pg (25.0-35.0); MCHC 32.9 g/dL (31.0-37.0); MCV 90.9 fL (80.0-100.0); Monocytes # (A) 0.7 k/uL (0-1.0); Monocytes % (A) 7 %; Neutrophils # (A) 5.8 k/uL (1.3-7.7); Neutrophils % (A) 61 %; Platelet Count 296 k/uL (150-450); RBC 5.23 m/uL (4.30-5.90); RDW 14.8 % (11.5-15.5); WBC 9.5 k/uL (3.8-10.6)
[2019-06-05 14:40] LABS: ALT 43 U/L (4-49); AST 38 U/L (17-59); African American GFR (CKD) >90 (>60 ml/min/1.73 sqM); Albumin 4.9 g/dL (3.5-5.0); Alkaline Phosphatase 102 U/L (38-126); Anion Gap 10 mmol/L; Blood Urea Nitrogen 17 mg/dL (9-20); Carbon Dioxide 28 mmol/L (22-30); Chloride 101 mmol/L (98-107); Glucose 141 mg/dL (74-99); Magnesium 1.9 mg/dL (1.6-2.3); Non-African American GFR(CKD) 80 (>60 ml/min/1.73 sqM); Potassium 4.9 mmol/L (3.5-5.1); Sodium 139 mmol/L (137-145); Total Bilirubin 0.9 mg/dL (0.2-1.3)
[2019-06-05 14:56] LABS: INR 0.9 (<1.2); Prothrombin Time 9.8 sec (9.0-12.0)
[2019-06-05 14:57] LABS: Partial Thromboplastin Time 21.2 sec (22.0-30.0)
[2019-06-05] MEDS ORDERED: predniSONE 50 MG TAB PO STA (15:24)
[2019-06-05] MEDS ORDERED: IPRATROPIUM-ALBUTEROL 3 ML NEB INHALATION STA (15:24)
--- NOTE | 2019-06-05 15:47 | XR ---
EXAMINATION TYPE: XR chest 2V DATE OF EXAM: 06/05/2019 COMPARISON: 06/29/2017 TECHNIQUE: PA and lateral views submitted. HISTORY: The ventricles FINDINGS: The lungs are clear and there is no pneumothorax, pleural effusion, or focal pneumonia. Degenerative changes spine. There is a nodule in the left upper lobe. IMPRESSION: 1. No acute process. Left upper lobe pulmonary nodule recommend CT chest.
[2019-06-05] MEDS ORDERED: IPRATROPIUM-ALBUTEROL 3 ML NEB INHALATION PRN (16:21)
--- NOTE | 2019-06-05 18:01 | P.HPIM ---
History of Present Illness H&P Date: 06/05/19 The patient is an 84 yo M with CAD s/p PCI x 1, HTN, HLD, and mild dementia presented to the ED with shortness of breath. The patient notes that he was in his usual state of health and was out shopping at [employer] when he went to the parking lot with his cart full of groceries and could not find his car. The patient apparently then became confused and was out in the cold for 15-30 minutes. The patient was found by a family friend in the parking lot who called his daughter who then picked him up and brought him to the ED. The daughter and his partner at the bedside both noted that he has never had a similar episode in the past and has never been lost outside. Upon presentation to the ED, the patient was noted to be very dyspneic with wheezing and P 117, with BP 185/111. The patient was given Duonebs, lasix IVP 40, and Prednisone orally. At time of the interview, the patient noted that he feels much better. He noted that his breathing had returned to normal. He reports no prior history of COPD or Asthma. He also denied cough, chest pain, nausea, vomiting, diaphoresis, recent travel, or sick contacts. He underwent an extensive evaluation in the ED w/ CXR showing CECILIO pulm nodule with EKG showing sinus tachycardia @ 104 bpm with TW flattening in lead V1. Laboratory evaluation revealed a WBC count of 9.5, hemoglobin of 15.6, troponin less than 0.012, BNP of 55, influenza A and B-, sodium 139, potassium 4.9, chloride 101, CO2 28, BUN 17, creatinine 0.84. The patient is admitted to the medicine service for management of reactive upper airway disease, likely due to cold wind. Review of Systems Pertinent positives and negatives as discussed in HPI, a complete review of systems was performed and all other systems are negative. Past Medical History Past Medical History: Chest Pain / Angina, GERD/Reflux, Osteoarthritis (OA) Additional Past Medical History / Comment(s): chest pain 2-3 months ago, History of Any Multi-Drug Resistant Organisms: None Reported Past Surgical History: Appendectomy Additional Past Surgical History / Comment(s): Right knee arthroscopic partial meniscectomy. Colonoscopy October 2015 EGD with biopsy November 2009. Colonoscopy November 2009 deviated septum repair in 1988 appendectomy September 2015 Byrne's cyst removal Past Anesthesia/Blood Transfusion Reactions: No Reported Reaction Date of Last Stent Placement:: 08/25/17 Past Psychological History: No Psychological Hx Reported Smoking Status: Never smoker Past Alcohol Use History: Occasional Past Drug Use History: None Reported - Past Family History Father History Unknown: Yes Family Medical History: Asthma, CVA/TIA Additional Family Medical History / Comment(s): Father in his 60s from a head injury secondary to a fall. Mother History Unknown: Yes Family Medical History: No Reported History, Rheumatoid Arthritis (RA) Additional Family Medical History / Comment(s): Mother from old age in her 90s. Brother(s) Additional Family Medical History / Comment(s): Patient is a total of 4 brothers, one after falling off a motor home. 3 are alive and patient is not aware of any medical problems. Sister(s) Additional Family Medical History / Comment(s): Patient has 1 sister with no known medical problems Daughter(s) Additional Family Medical History / Comment(s): Patient has 1 daughter and 2 sons with no major medical problems. Medications and Allergies Home Medications Medication Instructions Recorded Confirmed Type Vits A,C,E/Lutein/Minerals 1 tab PO DAILY 04/22/17 06/05/19 History [Ocuvite with Lutein Tablet] Donepezil HCl [Aricept] 5 mg PO HS 07/16/18 06/05/19 History Loratadine [Claritin] 10 mg PO DAILY 07/16/18 06/05/19 History Aspirin [Adult Low Dose Aspirin EC] 81 mg PO DAILY 12/21/18 06/05/19 History Atorvastatin [Lipitor] 40 mg PO DAILY 12/21/18 06/05/19 History Ferrous Sulfate [Iron (65 MG 325 mg PO DAILY 12/21/18 06/05/19 History Elemental)] Furosemide [Lasix] 20 mg PO DAILY 12/21/18 06/05/19 History Acetaminophen Tab [Tylenol Tab] 650 mg PO Q6H PRN 06/05/19 06/05/19 History Cholecalciferol (Vitamin D3) 2,000 unit PO DAILY 06/05/19 06/05/19 History [Vitamin D3] Latanoprost/Pf [Latanoprost 0.005% 1 drop BOTH EYES HS 06/05/19 06/05/19 History Eye Drop] Lisinopril [Zestril] 5 mg PO DAILY 06/05/19 06/05/19 History [place]-3 Fatty Acids/Fish Oil [Fish 1 cap PO DAILY 06/05/19 06/05/19 History Oil 1,000 mg Softgel] Timolol 0.25% Ophth Soln [Timoptic 1 drop BOTH EYES DAILY 06/05/19 06/05/19 History 0.25% Ophth Soln] Allergies Allergy/AdvReac Type Severity Reaction Status Date / Time No Known Allergies Allergy Verified 06/05/19 16:17 Physical Exam Vitals: Vital Signs Temp Pulse Resp BP Pulse Ox 06/05/19 15:48 80 06/05/19 15:40 80 20 128/99 98 06/05/19 15:38 84 06/05/19 14:46 100 18 99/79 06/05/19 14:16 102 H 27 H 179/107 97 06/05/19 14:05 28 H 06/05/19 13:53 97.0 F L 117 H 32 H 185/111 88 L Intake and Output 06/05/19 06/05/19 06/05/19 06:59 14:59 22:59 Other: Weight 108.862 kg General: non toxic, no distress, appears at stated age, obese Derm: no unusual rashes/lesions no unusual ecchymoses, warm, dry Head: atraumatic, normocephalic, symmetric Eyes: EOMI, no lid lag, anicteric sclera, pupils equal round reactive to light ENT: Nose and ears atraumatic, no thrush, no pharyngeal erythema Neck: No thyromegaly, no cervical lymphadenopathy, trachea midline, supple Mouth: no lip lesion, mucus membranes moist Cardiovascular: S1S2 reg, no murmur, positive posterior tibial pulse bilateral, no edema, capillary refill less than 2 seconds Lungs: CTA bilateral, no rhonchi, no rales , no accessory muscle use Abdominal: soft, nontender to palpation, no guarding, no appreciable organomegaly, normal bowel sounds Ext: no gross muscle atrophy, muscle strength 5 out of 5 in all 4 extremities grossly, no contractures, Neuro: CN II-XI grossly intact, light touch intact all 4 extremities, finger to nose within normal limits, Psych: Alert, awake, oriented to person and place, orients to time after multiple attempts Results CBC & Chem 7: 06/05/19 14:14 06/05/19 14:14 Labs: Abnormal Lab Results - Last 24 Hours (Table) 06/05/19 06/05/19 Range/Units 14:14 14:14 APTT 21.2 L (22.0-30.0) sec Glucose 141 H (74-99) mg/dL Assessment and Plan Plan: Shortness of breath, likely reactive airway disease from cold exposure -C/w Duonebs -C/w Prednisone 40 mg po qd for now Chronic conditions: HTN, HLD, Mild dementia -C/w home meds DVT prophylaxis -Lovenox The patient is admitted with an anticipated less than 2 midnight stay for ev aluation of shortness of breath CODE STATUS: Full Code Discussed with: Patient, Daughter, Partner Anticipated discharge date: 1-[address]: Home A total of 35 minutes was spent on the care of this complex patient more than 50% of the time was spent in counseling and care coordination.
[2019-06-05] MEDS: IPRATROPIUM-ALBUTEROL 3 ML NEB INHALATION SCH (19:01)
[2019-06-05] MEDS ORDERED: DONEPEZIL 5 MG TAB PO SCH (21:00)
[2019-06-05] MEDS ORDERED: LATANOPROST 0.005% OPHTH DROPS 2.5 ML BTL BOTH EYES SCH (21:00)
[2019-06-06] MEDS: IPRATROPIUM-ALBUTEROL 3 ML NEB INHALATION SCH ×2 (07:41→12:04)
[2019-06-06] MEDS: INSULIN ASPART (NovoLOG) 100 UNIT/ML VIAL SQ SCH ×2 (08:11→11:49)
[2019-06-06 08:12] LABS: Glucose,Whole Blood 168 mg/dL (75-99)
[2019-06-06 08:28] VITALS: BP 194/94; PULSE 89; RESP 16; TEMP 97.9
[2019-06-06] MEDS ORDERED: ENOXAPARIN 40 MG/0.4 ML SYRINGE SQ SCH (09:00)
[2019-06-06] MEDS ORDERED: TIMOLOL 0.25% OPHTH DROPS 5 ML BTL BOTH EYES SCH (09:00)
[2019-06-06] MEDS ORDERED: ASPIRIN 81 MG PO SCH (09:00)
[2019-06-06] MEDS ORDERED: ATORVASTATIN 40 MG TAB PO SCH (09:00)
[2019-06-06] MEDS ORDERED: predniSONE 20 MG TAB PO SCH (09:00)
[2019-06-06] MEDS ORDERED: LISINOPRIL 5 MG TAB PO SCH (09:00)
[2019-06-06] MEDS ORDERED: FUROSEMIDE 20 MG TAB PO SCH (09:00)
[2019-06-06] MEDS ORDERED: RX INFO: IV CONTRAST WAS GIVEN 1 EACH MISC MISCELLANE PRN (09:58)
--- NOTE | 2019-06-06 11:13 | CT ---
EXAMINATION TYPE: CT chest w con DATE OF EXAM: 06/06/2019 COMPARISON: Chest x-ray from yesterday. HISTORY: Abnormal x-ray. CT DLP: 446 mGycm. Automated Exposure Control for Dose Reduction was Utilized. TECHNIQUE: CT scan of the thorax is performed following with IV Contrast, patient injected with 100 mL of Isovue 300. FINDINGS: LUNGS: There is eventration of both hemidiaphragms redemonstration. There is elevation and eventratio n of the posterior lateral aspect left hemidiaphragm no suspicious nodules are seen with particular a ttention to the left upper to midlung category of x-ray concern. There are however calcified pleural plaque in the left midlung which likely accounted for x-ray abnormality there are near the level of t he anterolateral fourth rib focally. There is mild lingular linear scarring and/or atelectasis. Right lung is clear. No pleural effusion or pneumothorax bilaterally. MEDIASTINUM: There are no greater than 1 cm hilar or mediastinal lymph nodes. No cardiomegaly or pe ricardial effusion is seen. Small size sliding-type hiatal hernia. Mild calcified plaque of the aort a. OTHER: Liver low densities consistent with diffuse fatty infiltration. Mild multilevel spurring of th e thoracic spine.. IMPRESSION: Focal calcified left anterolateral mid lung pleural plaque mimics nodule on x-ray. Findin g may be product of old trauma and/or less likely asbestos exposure. No worrisome nodule or mass or t horacic adenopathy.
[2019-06-06 11:34] LABS: Glucose,Whole Blood 128 mg/dL (75-99)
--- NOTE | 2019-06-06 12:25 | P.DS ---
Providers Date of admission: 06/05/19 16:21 Expected date of discharge: 06/06/19 Attending physician: Susie De La Vega MD Primary care physician: Stated None Hospital Course: The patient is an 84 yo M with CAD s/p PCI x 1, HTN, HLD, and mild dementia presented to the ED with shortness of breath. The patient notes that he was in his usual state of health and was out shopping at [employer] when he went to the parking lot with his cart full of groceries and could not find his car. The patient apparently then became confused and was out in the cold for 15-30 minutes. The patient was found by a family friend in the parking lot who called his daughter who then picked him up and brought him to the ED. The daughter and his partner at the bedside both noted that he has never had a similar episode in the past and has never been lost outside. Upon presentation to the ED, the patient was noted to be very dyspneic with wheezing and P 117, with BP 185/111. The patient was given Duonebs, lasix IVP 40, and Prednisone orally. At time of the interview, the patient noted that he feels much better. He noted that his breathing had returned to normal. He reports no prior history of COPD or Asthma. He also denied cough, chest pain, nausea, vomiting, diaphoresis, recent travel, or sick contacts. He underwent an extensive evaluation in the ED w/ CXR showing CECILIO pulm nodule with EKG showing sinus tachycardia @ 104 bpm with TW flattening in lead V1. Laboratory evaluation revealed a WBC count of 9.5, hemoglobin of 15.6, troponin less than 0.012, BNP of 55, influenza A and B-, sodium 139, potassium 4.9, chloride 101, CO2 28, BUN 17, creatinine 0.84. The patient is admitted to the medicine service for management of reactive upper airway disease, likely due to cold wind. The patient was seen on 06/06/19 with his son - HCP ([facility] [facility]) at the bedside. The son noted that his father has been having some difficulties with his memory over the past few months. He noted that he previously did get lost while attempting to drive home. Discussed with the son the need for closer supervision due to worsening cognitive decline. Also discussed the need to stop any further auto-mobile use. The son agreed and verbalized that he will work with the patient and his girlfriend to make arrangements to that he won't drive any longer. Discussed the need for a medical alert bracelet, the pamphlets for which were given to the patient's family by rn case mgr. Form was also filled out to make DMV aware of the impaired nature of the patient's driving. The patient's family noted that they are making arrangements for him to move closer to or live with his girlfriend who would then be able to manage things for him. Furthermore, the patient underwent a CT chest to evaluate for a possible nodule, which resulted as a benign finding with no worrisome masses noted. The patient was seen and examined at the bedside on 06/06. He noted feeling well and denied any further episodes of shortness of breath. Denied chest pain, cough, fever, chills, abdominal pain, nausea, or vomiting. He was in good spirits and was eager to be discharged. Physical Examination General: Non-toxic, in no acute distress, appears stated age, normal weight HEENT: NC/AT, anicteric sclerae, moist conjunctiva, no lid-lag, PERRLA Cardiovascular: S1/S2 wnl, no murmurs, rubs, or gallops Lungs: Clear to auscultation, normal respiratory effort, no accessory muscle use Abdominal: Soft, non-tender, non-distended, no guarding, rebound, or rigidity Skin: Warm, dry Extremities: No edema or contractures Psychiatric: Alert and oriented to person, place and time, appropriate affect Neuro: CN II-XII grossly intact, Strength 5/5 in all 4 extremities, Speech intact, Sensation to light touch grossly intact throughout Discharge diagnosis: Reactive upper airway disease due to exposure to cold air; HTN; HLD; mild-moderate dementia A total of 40 minutes of time were spent preparing this complex discharge summary. Patient Condition at Discharge: Stable Plan - Discharge Summary New Discharge Prescriptions: Continue Vits A,C,E/Lutein/Minerals [Ocuvite with Lutein Tablet] 1 tab PO DAILY Loratadine [Claritin] 10 mg PO DAILY Donepezil HCl [Aricept] 5 mg PO HS Atorvastatin [Lipitor] 40 mg PO DAILY Furosemide [Lasix] 20 mg PO DAILY Ferrous Sulfate [Iron (65 MG Elemental)] 325 mg PO DAILY Aspirin [Adult Low Dose Aspirin EC] 81 mg PO DAILY Timolol 0.25% Ophth Soln [Timoptic 0.25% Ophth Soln] 1 drop BOTH EYES DAILY Latanoprost/Pf [Latanoprost 0.005% Eye Drop] 1 drop BOTH EYES HS Acetaminophen Tab [Tylenol] 650 mg PO Q6H PRN PRN Reason: Pain Jenkins-3 Fatty Acids/Fish Oil [Fish Oil 1,000 mg Softgel] 1 cap PO DAILY Cholecalciferol (Vitamin D3) [Vitamin D3] 2,000 unit PO DAILY Lisinopril [Zestril] 5 mg PO DAILY Discharge Medication List Vits A,C,E/Lutein/Minerals [Ocuvite with Lutein Tablet] 1 tab PO DAILY 04/22/17 [History] Donepezil HCl [Aricept] 5 mg PO HS 07/16/18 [History] Loratadine [Claritin] 10 mg PO DAILY 07/16/18 [History] Aspirin [Adult Low Dose Aspirin EC] 81 mg PO DAILY 12/21/18 [History] Atorvastatin [Lipitor] 40 mg PO DAILY 12/21/18 [History] Ferrous Sulfate [Iron (65 MG Elemental)] 325 mg PO DAILY 12/21/18 [History] Furosemide [Lasix] 20 mg PO DAILY 12/21/18 [History] Acetaminophen Tab [Tylenol] 650 mg PO Q6H PRN 06/05/19 [History] Cholecalciferol (Vitamin D3) [Vitamin D3] 2,000 unit PO DAILY 06/05/19 [History] Latanoprost/Pf [Latanoprost 0.005% Eye Drop] 1 drop BOTH EYES HS 06/05/19 [History] Lisinopril [Zestril] 5 mg PO DAILY 06/05/19 [History] Jenkins-3 Fatty Acids/Fish Oil [Fish Oil 1,000 mg Softgel] 1 cap PO DAILY 06/05/19 [History] Timolol 0.25% Ophth Soln [Timoptic 0.25% Ophth Soln] 1 drop BOTH EYES DAILY 06/05/19 [History] Follow up Appointment(s)/Referral(s): None,Stated [Primary Care Provider] - 1-2 days Discharge Disposition: HOME WITH HOME HEALTH SERVICES
== END 2019-06-06 12:38 | disposition home health service (06) ==
LOC: EC 13:49 → 4SSUR 16:21
PROVIDERS: ADMIT Internal Medicine; ATTEND Internal Medicine
DX: R06.02 Shortness of breath (principal); F03.90 Unspecified dementia, unspecified severity, without behavioral disturbance, psychotic disturbance, mood disturbance, and anxiety; E78.5 Hyperlipidemia, unspecified; K21.9 Gastro-esophageal reflux disease without esophagitis; M19.90 Unspecified osteoarthritis, unspecified site; I25.10 Atherosclerotic heart disease of native coronary artery without angina pectoris; I10 Essential (primary) hypertension; Z90.49 Acquired absence of other specified parts of digestive tract; Z79.82 Long term (current) use of aspirin; Z79.899 Other long term (current) drug therapy
CPT/HCPCS: 99285; 96374; 36415; 94640 ×3; 93005; 83880; 80053; 83605; 83735; 84484; 85025; 85610; 85730; 87040; 87502; 71046; 71260; 96372; G0378 ×2; J1940; J1650; J7512 ×2; Q9967

== ENCOUNTER 2021-11-05 13:06 | Inpatient (IN) | payer BC, MEDICARE ==
[2021-11-05] MEDS ORDERED: SODIUM CHLORIDE 0.9% 1,000 ML IV ONE (13:23)
[2021-11-05 13:33] LABS: Glucose,Whole Blood 84 mg/dL (75-99)
[2021-11-05 14:03] LABS: Partial Thromboplastin Time 24.9 sec (22.0-30.0); Prothrombin Time 10.8 sec (9.0-12.0)
--- NOTE | 2021-11-05 14:07 | CT ---
EXAMINATION TYPE: CT brain wo con DATE OF EXAM: 11/05/2021 COMPARISON: None INDICATION: altered mental status DLP: 1159.4 mGycm, Automated exposure control for dose reduction was used. CONTRAST: None CT of the brain is performed utilizing 3 mm thick sections through the posterior fossa and 3 mm thick sections through the remaining calvarium. Study is performed within 24 hours of arrival to the hosp ital. No abnormal hyperdensity is present to suggest an acute intracranial hemorrhage. No mass lesion is evident. No acute infarcts are evident. Ventricles and sulci are appropriate for the patient age. There is a patent cavum septum lucid and ca vum verge, normal variants Paranasal sinuses and mastoid air cells within the [id number] are clear. IMPRESSIONS: 1. No acute intracranial process. Follow-up MRI can be performed as clinically indicated.
[2021-11-05 14:11] LABS: Basophils # (A) 0.1 k/uL (0-0.2); Basophils % (A) 1 %; Eosinophils # (A) 0.2 k/uL (0-0.7); Eosinophils % (A) 3 %; HCT 48.3 % (39.0-53.0); HGB 15.4 gm/dL (13.0-17.5); Lymphocytes # (A) 1.9 k/uL (1.0-4.8); Lymphocytes % (A) 25 %; MCH 29.3 pg (25.0-35.0); MCHC 31.9 g/dL (31.0-37.0); Mean Platelet Volume 7.2; Monocytes # (A) 0.6 k/uL (0-1.0); Monocytes % (A) 7 %; Neutrophils # (A) 4.8 k/uL (1.3-7.7); Neutrophils % (A) 62 %; Platelet Count 240 k/uL (150-450); RBC 5.25 m/uL (4.30-5.90); RDW 13.6 % (11.5-15.5); WBC 7.8 k/uL (3.8-10.6)
[2021-11-05 14:14] LABS: Lactic Acid, Venous 1.2 mmol/L (0.7-2.0)
--- NOTE | 2021-11-05 14:14 | XR ---
EXAMINATION TYPE: XR chest 2V DATE OF EXAM: 11/05/2021 COMPARISON: 06/05/2019. TECHNIQUE: PA and lateral views submitted. HISTORY: Altered mental status. FINDINGS: Heart size normal. Suspect underlying COPD. Atherosclerotic change aorta. No pneumothorax. There is n odularity in the left upper lobe and left lower lobe infiltrate. IMPRESSION: 1. Left lower lobe infiltrate or atelectasis correlate clinically. 2. Calcified pleural plaque or calcified nodules left upper lobe. Stable.
[2021-11-05 14:15] LABS: ALT 15 U/L (4-49); AST 21 U/L (17-59); African American GFR (CKD) 88 (>60 ml/min/1.73 sqM); Albumin 4.3 g/dL (3.5-5.0); Alcohol <10 mg/dL; Alkaline Phosphatase 56 U/L (38-126); Anion Gap 5 mmol/L; Blood Urea Nitrogen 19 mg/dL (9-20); Carbon Dioxide 31 mmol/L (22-30); Chloride 104 mmol/L (98-107); Glucose 92 mg/dL (74-99); Non-African American GFR(CKD) 77 (>60 ml/min/1.73 sqM); Potassium 4.7 mmol/L (3.5-5.1); Sodium 140 mmol/L (137-145); Total Bilirubin 0.5 mg/dL (0.2-1.3); Total Protein 6.9 g/dL (6.3-8.2)
[2021-11-05 15:56] LABS: Glucose,Whole Blood 88 mg/dL (75-99)
[2021-11-05] MEDS ORDERED: NALOXONE 0.4 MG/ML 1 ML VIAL IV PRN (16:12)
[2021-11-05 16:16] LABS: Appearance,Urine Clear (Clear); Bilirubin,Urine Negative (Negative); Blood,Urine Small (Negative); Color,Urine Yellow; Glucose,Urine (UA) Negative (Negative); Ketones,Urine Negative (Negative); Leukocyte Esterase,Urine Negative (Negative); Mucus,Urine Rare /hpf; Nitrite,Urine Negative (Negative); PH, Urine 5.5 (5.0-8.0); Protein,Urine Negative (Negative); RBC,Urine 56 /hpf (0-5); Urobilinogen,Urine <2.0 mg/dL (<2.0); WBC,Urine 1 /hpf (0-5)
[2021-11-05 16:18] LABS: Amphetamine Screen,Urine Not Detected (NotDetected); Barbiturate Screen,Urine Not Detected (NotDetected); Benzodiazepines Screen,Urine Not Detected (NotDetected); Cocaine Screen,Urine Not Detected (NotDetected); Methadone Screen, Urine Not Detected (NotDetected); Opiate Screen,Urine Not Detected (NotDetected); Oxycodone Screen, Urine Not Detected (NotDetected); Phencyclidine Screen,Urine Not Detected (NotDetected); Tricyclic Antidepressant,Urine Not Detected (NotDetected); Urn Cannabinoid Scrn Not Detected (NotDetected)
--- NOTE | 2021-11-05 16:23 | ED ---
General Adult HPI - General Chief complaint: Altered Mental Status Stated complaint: AMS Time Seen by Provider: 11/05/21 13:15 Source: patient, RN notes reviewed, old records reviewed Mode of arrival: EMS Limitations: altered mental status - History of Present Illness Initial comments: Patient is an 86-year-old male who presents emergency Department for altered mental status. Initially, minimal information was provided, however 1 patient's family arrived, patient had a low blood sugar in the 50s or 60s at this facility. He received food and honey. Remained altered at that time. Was walking in circles, and mumbling . Stop talking for EMS. However patient's symptoms did improve on transfer to the ER. By time he presented, patient is able to speak in full sentences, and appears to be at his baseline, which is A& O 3-4. He currently has no acute complaints. Does state he has been unable to urinate lately. No history of retention Denies any fevers, chills, cough, chest pain, abdominal pain. No other acute point at this time. Presents for further evaluation. Not on any form of diabetic medication. - Related Data Home Medications Medication Instructions Recorded Confirmed Donepezil HCl [Aricept] 5 mg PO HS 07/16/18 11/05/21 Loratadine [Claritin] 10 mg PO DAILY 07/16/18 11/05/21 Aspirin [Adult Low Dose Aspirin EC] 81 mg PO DAILY 12/21/18 11/05/21 Ferrous Sulfate [Iron (65 MG 325 mg PO DAILY 12/21/18 11/05/21 Elemental)] Latanoprost/Pf [Latanoprost 0.005% 1 drop BOTH EYES HS 06/05/19 11/05/21 Eye Drop] Timolol 0.25% Ophth Soln [Timoptic 1 drop BOTH EYES DAILY 06/05/19 11/05/21 0.25% Ophth Soln] lisinopriL [Zestril] 5 mg PO DAILY 06/05/19 11/05/21 Naproxen Sodium [Aleve] 220 mg PO BID 11/05/21 11/05/21 Allergies Allergy/AdvReac Type Severity Reaction Status Date / Time No Known Allergies Allergy Verified 11/05/21 15:57 Review of Systems ROS Statement: Those systems with pertinent positive or pertinent negative responses have been documented in the HPI. Review of Systems: CONST: Denies fever EYES: Denies blurry vision ENT: Denies nasal congestion C/V: Denies Chest pain RESP: Denies shortness of breath GI: Denies abdominal pain : Denies dysuria SKIN: Denies rash. MSK: Denies joint pain. NEURO: Denies headache ROS Other: All systems not noted in ROS Statement are negative. Past Medical History Past Medical History: Coronary Artery Disease (CAD), Chest Pain / Angina, Eye Disorder, GERD/Reflux, Hyperlipidemia, Hypertension, Memory Impairment, Osteoarthritis (OA) Additional Past Medical History / Comment(s): Bilateral macular degeneration, past arthritis R knee but has had a knee replacement, short term memory loss, sinus issues, pt and son unsure why pt is on lasix. History of Any Multi-Drug Resistant Organisms: None Reported Past Surgical History: Appendectomy, Heart Catheterization With Stent, Joint Replacement, Orthopedic Surgery Additional Past Surgical History / Comment(s): Total R knee arthroplasty, R knee partial menisectomy, EGD, colonoscopies, deviated septum, muhammad's cyst but pt cannot recall site.l Past Anesthesia/Blood Transfusion Reactions: No Reported Reaction Date of Last Stent Placement:: 08/25/17 Past Psychological History: No Psychological Hx Reported Smoking Status: Unknown if ever smoked Past Alcohol Use History: Occasional Past Drug Use History: None Reported - Past Family History Father History Unknown: Yes Family Medical History: Asthma, CVA/TIA Additional Family Medical History / Comment(s): Father in his 60s from a head injury secondary to a fall. Mother History Unknown: Yes Family Medical History: No Reported History, Rheumatoid Arthritis (RA) Additional Family Medical History / Comment(s): Mother from old age in her 90s. Brother(s) Additional Family Medical History / Comment(s): Patient is a total of 4 brothers, one after falling off a motor home. 3 are alive and patient is not aware of any medical problems. Sister(s) Additional Family Medical History / Comment(s): Patient has 1 sister with no known medical problems Daughter(s) Additional Family Medical History / Comment(s): Patient has 1 daughter and 2 sons with no major medical problems. General Exam - General Exam Comments Initial Comments: General: Appears in no acute distress. HEAD: Normal with no signs of head trauma. EYES: PERRLA, EOMI, conjunctiva normal, no discharge. ENT: Hearing grossly intact, normal oropharynx. RESPIRATORY: Clear breath sounds bilaterally. No wheezes, rales, or rhonchi. C/V: Regular rate and rhythm. S1 and S2 auscultated, no edema, peripheral pulses 2+ and intact throughout ABD: Abdomen is soft, nontender. Patient is distended suprapubically. No guarding. No peritoneal signs. EXT: Normal range of motion, no obvious deformity SKIN: No rashes or lesions observed on exposed skin. NEURO: Alert and oriented x 3-4. Cranial nerves II-XII intact. No focal sensory or strength deficits. NIH of 0. GCS of 15. Limitations: altered mental status Course Vital Signs 11/05/21 13:08 Temperature 97.7 F Pulse Rate 65 Respiratory 16 Rate Blood Pressure 131/82 O2 Sat by Pulse 96 Oximetry Medical Decision Making - Medical Decision Making Based on the patient's presentation and physical exam, I'm concerned for urinary retention. Cannot rule out infectious cause for his current symptoms. Only significant exam finding is suprapubic distention is concerned for retention. Vital signs are within normal limits. For infectious labs will be obtained. He will be given IV fluids. We will recheck the patient's blood sugar multiple times. He was in agreement this plan. EKG showed no signs of acute ischemia. Brain CT showed no acute intracranial process. Chest x-ray revealed infiltrate versus atelectasis, likely atelectasis as he has no upper respiratory symptoms. There are calcified nodules which are chronic. Laboratory studies remarkable for a blood glucose of 84, repeat is 88. Troponin is undetectable. Urinalysis is unremarkable except for small amount of blood which is likely secondary to catheter placement. UDS is negative. Ammonia is negative. We initially attempted a bladder scan the patient however plan skin is are broken. We did straight cath him initially, which drained greater than 600 mL of urine. It does appear he was retaining and Peter catheter was therefore placed. Sugars remained stable throughout his stay here. Is back to his baseline mental status as family is present at bedside and corroborated this. I did discuss with him the results of the imaging as well as laboratory studies. They'll expressed understanding. I would like to admit the patient to the hospital due to his hypoglycemia episode today to continue monitoring his hypoglycemia, as well as acute urinary retention. They were in agreement this plan. Peter catheter will be kept in place. ALLERGY will be consulted. I spoke with the admitting team under Dr. Pedraza who accepted the patient. - Lab Data Result diagrams: 11/05/21 13:34 11/05/21 13:34 Lab Results 11/05/21 11/05/21 11/05/21 Range/Units 13:32 13:34 13:34 WBC 7.8 (3.8-10.6) k/uL RBC 5.25 (4.30-5.90) m/uL Hgb 15.4 (13.0-17.5) gm/dL Hct 48.3 (39.0-53.0) % MCV 92.0 (80.0-100.0) fL MCH 29.3 (25.0-35.0) pg MCHC 31.9 (31.0-37.0) g/dL RDW 13.6 (11.5-15.5) % Plt Count 240 (150-450) k/uL MPV 7.2 Neutrophils % 62 % Lymphocytes % 25 % Monocytes % 7 % Eosinophils % 3 % Basophils % 1 % Neutrophils # 4.8 (1.3-7.7) k/uL Lymphocytes # 1.9 (1.0-4.8) k/uL Monocytes # 0.6 (0-1.0) k/uL Eosinophils # 0.2 (0-0.7) k/uL Basophils # 0.1 (0-0.2) k/uL PT 10.8 (9.0-12.0) sec INR 1.0 (<1.2) APTT 24.9 (22.0-30.0) sec Sodium (137-145) mmol/L Potassium (3.5-5.1) mmol/L Chloride (98-107) mmol/L Carbon Dioxide (22-30) mmol/L Anion Gap mmol/L BUN (9-20) mg/dL Creatinine (0.66-1.25) mg/dL Est GFR (CKD-EPI)AfAm (>60 ml/min/1.73 sqM) Est GFR (CKD-EPI)NonAf (>60 ml/min/1.73 sqM) Glucose (74-99) mg/dL POC Glucose (mg/dL) 84 (75-99) mg/dL POC Glu [place] Winder ID Linh Parisi Plasma Lactic Acid [place] (0.7-2.0) mmol/L Calcium (8.4-10.2) mg/dL Total Bilirubin (0.2-1.3) mg/dL AST (17-59) U/L ALT (4-49) U/L Alkaline Phosphatase (38-126) U/L Ammonia (<30) umol/L Troponin I (0.000-0.034) ng/mL Total Protein (6.3-8.2) g/dL Albumin (3.5-5.0) g/dL Urine Color Urine Appearance (Clear) Urine pH (5.0-8.0) Ur Specific [place] (1.001-1.035) Urine Protein (Negative) Urine Glucose (UA) (Negative) Urine Ketones (Negative) Urine Blood (Negative) Urine Nitrite (Negative) Urine Bilirubin (Negative) Urine Urobilinogen (<2.0) mg/dL Ur Leukocyte Esterase (Negative) Urine RBC (0-5) /hpf Urine WBC (0-5) /hpf Urine Mucus (None) /hpf Urine Opiates Screen (NotDetected) Ur Oxycodone Screen (NotDetected) Urine Methadone Screen (NotDetected) Ur Propoxyphene Screen (NotDetected) Ur Barbiturates Screen (NotDetected) U Tricyclic Antidepress (NotDetected) Ur Phencyclidine Scrn (NotDetected) Ur Amphetamines Screen (NotDetected) U Methamphetamines Scrn (NotDetected) U Benzodiazepines Scrn (NotDetected) Urine Cocaine Screen (NotDetected) U Marijuana (THC) Screen (NotDetected) Serum Alcohol mg/dL 11/05/21 11/05/21 11/05/21 Range/Units 13:34 13:34 13:34 WBC (3.8-10.6) k/uL RBC (4.30-5.90) m/uL Hgb (13.0-17.5) gm/dL Hct (39.0-53.0) % MCV (80.0-100.0) fL MCH (25.0-35.0) pg MCHC (31.0-37.0) g/dL RDW (11.5-15.5) % Plt Count (150-450) k/uL MPV Neutrophils % % Lymphocytes % % Monocytes % % Eosinophils % % Basophils % % Neutrophils # (1.3-7.7) k/uL Lymphocytes # (1.0-4.8) k/uL Monocytes # (0-1.0) k/uL Eosinophils # (0-0.7) k/uL Basophils # (0-0.2) k/uL PT (9.0-12.0) sec INR (<1.2) APTT (22.0-30.0) sec Sodium 140 (137-145) mmol/L Potassium 4.7 (3.5-5.1) mmol/L Chloride 104 (98-107) mmol/L Carbon Dioxide 31 H (22-30) mmol/L Anion Gap 5 mmol/L BUN 19 (9-20) mg/dL Creatinine 0.90 (0.66-1.25) mg/dL Est GFR (CKD-EPI)AfAm 88 (>60 ml/min/1.73 sqM) Est GFR (CKD-EPI)NonAf 77 (>60 ml/min/1.73 sqM) Glucose 92 (74-99) mg/dL POC Glucose (mg/dL) (75-99) mg/dL POC Glu [place] Winder ID Plasma Lactic Acid Brenton (0.7-2.0) mmol/L Calcium 9.0 (8.4-10.2) mg/dL Total Bilirubin 0.5 (0.2-1.3) mg/dL AST 21 (17-59) U/L ALT 15 (4-49) U/L Alkaline Phosphatase 56 (38-126) U/L Ammonia (<30) umol/L Troponin I <0.012 (0.000-0.034) ng/mL Total Protein 6.9 (6.3-8.2) g/dL Albumin 4.3 (3.5-5.0) g/dL Urine Color Yellow Urine Appearance Clear (Clear) Urine pH 5.5 (5.0-8.0) Ur Specific [place] 1.020 (1.001-1.035) Urine Protein Negative (Negative) Urine Glucose (UA) Negative (Negative) Urine Ketones Negative (Negative) Urine Blood Small H (Negative) Urine Nitrite Negative (Negative) Urine Bilirubin Negative (Negative) Urine Urobilinogen <2.0 (<2.0) mg/dL Ur Leukocyte Esterase Negative (Negative) Urine RBC 56 H (0-5) /hpf Urine WBC 1 (0-5) /hpf Urine Mucus Rare H (None) /hpf Urine Opiates Screen Not Detected (NotDetected) Ur Oxycodone Screen Not Detected (NotDetected) Urine Methadone Screen Not Detected (NotDetected) Ur Propoxyphene Screen Not Detected (NotDetected) Ur Barbiturates Screen Not Detected (NotDetected) U Tricyclic Antidepress Not Detected (NotDetected) Ur Phencyclidine Scrn Not Detected (NotDetected) Ur Amphetamines Screen Not Detected (NotDetected) U Methamphetamines Scrn Not Detected (NotDetected) U Benzodiazepines Scrn Not Detected (NotDetected) Urine Cocaine Screen Not Detected (NotDetected) U Marijuana (THC) Screen Not Detected (NotDetected) Serum Alcohol <10 mg/dL 11/05/21 11/05/21 Range/Units 13:34 15:55 WBC (3.8-10.6) k/uL RBC (4.30-5.90) m/uL Hgb (13.0-17.5) gm/dL Hct (39.0-53.0) % MCV (80.0-100.0) fL MCH (25.0-35.0) pg MCHC (31.0-37.0) g/dL RDW (11.5-15.5) % Plt Count (150-450) k/uL MPV Neutrophils % % Lymphocytes % % Monocytes % % Eosinophils % % Basophils % % Neutrophils # (1.3-7.7) k/uL Lymphocytes # (1.0-4.8) k/uL Monocytes # (0-1.0) k/uL Eosinophils # (0-0.7) k/uL Basophils # (0-0.2) k/uL PT (9.0-12.0) sec INR (<1.2) APTT (22.0-30.0) sec Sodium (137-145) mmol/L Potassium (3.5-5.1) mmol/L Chloride (98-107) mmol/L Carbon Dioxide (22-30) mmol/L Anion Gap mmol/L BUN (9-20) mg/dL Creatinine (0.66-1.25) mg/dL Est GFR (CKD-EPI)AfAm (>60 ml/min/1.73 sqM) Est GFR (CKD-EPI)NonAf (>60 ml/min/1.73 sqM) Glucose (74-99) mg/dL POC Glucose (mg/dL) 88 (75-99) mg/dL POC Glu [place] W[facility] ID Linh Parisi Plasma Lactic Acid [place] 1.2 (0.7-2.0) mmol/L Calcium (8.4-10.2) mg/dL Total Bilirubin (0.2-1.3) mg/dL AST (17-59) U/L ALT (4-49) U/L Alkaline Phosphatase (38-126) U/L Ammonia <9 (<30) umol/L Troponin I (0.000-0.034) ng/mL Total Protein (6.3-8.2) g/dL Albumin (3.5-5.0) g/dL Urine Color Urine Appearance (Clear) Urine pH (5.0-8.0) Ur Specific [place] (1.001-1.035) Urine Protein (Negative) Urine Glucose (UA) (Negative) Urine Ketones (Negative) Urine Blood (Negative) Urine Nitrite (Negative) Urine Bilirubin (Negative) Urine Urobilinogen (<2.0) mg/dL Ur Leukocyte Esterase (Negative) Urine RBC (0-5) /hpf Urine WBC (0-5) /hpf Urine Mucus (None) /hpf Urine Opiates Screen (NotDetected) Ur Oxycodone Screen (NotDetected) Urine Methadone Screen (NotDetected) Ur Propoxyphene Screen (NotDetected) Ur Barbiturates Screen (NotDetected) U Tricyclic Antidepress (NotDetected) Ur Phencyclidine Scrn (NotDetected) Ur Amphetamines Screen (NotDetected) U Methamphetamines Scrn (NotDetected) U Benzodiazepines Scrn (NotDetected) Urine Cocaine Screen (NotDetected) U Marijuana (THC) Screen (NotDetected) Serum Alcohol mg/dL - EKG Data -: EKG Interpreted by Me EKG Comments: 12-lead Electrocardiogram Interpretation Note EKG was reviewed and interpreted by myself. 12-lead ECG performed at 1307 is interpreted by me as revealing bradycardia at a rate of 55 beats per minute. [place] is normal. QRS duration is 80 ms, QTc is 360 ms. TX interval appears to be approximately 200 ms.. There were no ST or T wave abnormalities to suggest myocardial ischemia or injury. R wave progression across the precordium was satisfactory. By my interpretation this EKG is non-diagnostic for acute ischemia. Disposition Clinical Impression: AMS (altered mental status), Hypoglycemia, Urinary retention Disposition: ADMITTED IP TO THIS HOSP Condition: Stable Time of Disposition: 15:50
[2021-11-05] MEDS ORDERED: bisacodyL 5 MG TABLET.DR PO PRN (18:03)
[2021-11-05] MEDS ORDERED: MELATONIN 3 MG TABLET PO PRN (18:03)
[2021-11-05] MEDS ORDERED: ONDANSETRON 4 MG/2 ML VIAL IVP PRN (18:03)
[2021-11-05] MEDS ORDERED: ACETAMINOPHEN TAB 325 MG TAB PO PRN (18:03)
--- NOTE | 2021-11-05 18:03 | P.HPIM ---
History of Present Illness H&P Date: 11/05/21 Patient is a 86-year-old male with history of coronary artery disease, GERD, hypertension, dyslipidemia who presented to the ER after being found with decreased responsiveness. Per EMS she was alert to sternal rub only. His glucose was 113 and on recheck 116. His vital signs were stable. He became more alert on the way to the ER. On arrival in the ER his vital signs were stable. Laboratory and urinalysis were essentially unremarkable. Urine drug screen was normal. CT head showed no acute process. Chest x-ray revealed no acute process. He did have a Peter catheter placed with return of 600 mL of urine. There was hematuria present. Patient was placed in observation. Patient seen and examined at bedside. He continues to be confused. No family present. He does not remember coming to the hospital, he cannot tell me his medical history, he says it's the year of "" as he knows that he is declining. He denies chest pain, shortness breath, nausea, vomiting, diarrhea. Weakness. He states he does not use a cane or walker. He is able to tell me he lives at [facility]. He does not know who his primary care physician is. All past medical history is obtained [facility] thorough chart review including admission May 2019. Pertinent positives and negatives as discussed in HPI, a complete review of systems was performed and all other systems are negative. Vital signs reviewed General: non toxic, no distress, appears at stated age Derm: warm, dry Head: atraumatic, normocephalic, symmetric Eyes: EOMI, no lid lag, anicteric sclera, pupils equal round reactive to light ENT: Nose and ears atraumatic, no thrush, no pharyngeal erythema Neck: No thyromegaly, no cervical lymphadenopathy, trachea midline, supple Mouth: no lip lesion, mucus membranes moist Cardiovascular: S1S2 reg, no murmur, positive posterior tibial pulse bilateral, no edema, capillary refill less than 2 seconds Lungs: clear to ascultation bilateral, no ronchi, no rales, no wheeze, no accessory muscle use Abdominal: soft, nontender to palpation, no guarding, no appreciable organomegaly, normal bowel sounds Ext: no gross muscle atrophy, muscle strength muscle strength 4 out of 5 in all 4 extremities, no contractures Neuro: CN II-XII grossly intact, light touch intact all 4 extremities, finger to nose poor b/l Psych: Alert, oriented to self only, appropriate affect Assessment/Plan: Acute confusion episode in apatient with known memor impairment Urinary retention -Continue with Peter catheter -Check renal ultrasound -Neuro checks -PT/OT evaluation -Monitor overnight for changes in level of consciousness - hold aricept, start flomax Chronic: Coronary artery disease GERD Dyslipidemia Hypertension Osteoarthritis Macular degeneration Short-term memory loss The patient is admitted with an anticipated less than 2 midnight stay for evaluation of confusion DVT prophylaxis: SCD Discussed with: patient, ED physician Anticipated discharge date: 11/05/[address]: return to [facility]. A total of 35 minutes was spent on the care of this complex patient more than 50% of the time was spent in counseling and care coordination. Past Medical History Past Medical History: Coronary Artery Disease (CAD), Chest Pain / Angina, Eye Disorder, GERD/Reflux, Hyperlipidemia, Hypertension, Memory Impairment, Osteoarthritis (OA) Additional Past Medical History / Comment(s): Bilateral macular degeneration, past arthritis R knee but has had a knee replacement, short term memory loss, sinus issues, pt and son unsure why pt is on lasix. History of Any Multi-Drug Resistant Organisms: None Reported Past Surgical History: Appendectomy, Heart Catheterization With Stent, Joint Rep lacement, Orthopedic Surgery Additional Past Surgical History / Comment(s): Total R knee arthroplasty, R knee partial menisectomy, EGD, colonoscopies, deviated septum, muhammad's cyst but pt cannot recall site.l Past Anesthesia/Blood Transfusion Reactions: No Reported Reaction Date of Last Stent Placement:: 08/25/17 Past Psychological History: No Psychological Hx Reported Smoking Status: Unknown if ever smoked Past Alcohol Use History: Occasional Past Drug Use History: None Reported - Past Family History Father History Unknown: Yes Family Medical History: Asthma, CVA/TIA Additional Family Medical History / Comment(s): Father in his 60s from a head injury secondary to a fall. Mother History Unknown: Yes Family Medical History: No Reported History, Rheumatoid Arthritis (RA) Additional Family Medical History / Comment(s): Mother from old age in her 90s. Brother(s) Additional Family Medical History / Comment(s): Patient is a total of 4 brothers, one after falling off a motor home. 3 are alive and patient is not aware of any medical problems. Sister(s) Additional Family Medical History / Comment(s): Patient has 1 sister with no known medical problems Daughter(s) Additional Family Medical History / Comment(s): Patient has 1 daughter and 2 sons with no major medical problems. Medications and Allergies Home Medications Medication Instructions Recorded Confirmed Type Donepezil HCl [Aricept] 5 mg PO HS 07/16/18 11/05/21 History Loratadine [Claritin] 10 mg PO DAILY 07/16/18 11/05/21 History Aspirin [Adult Low Dose Aspirin EC] 81 mg PO DAILY 12/21/18 11/05/21 History Ferrous Sulfate [Iron (65 MG 325 mg PO DAILY 12/21/18 11/05/21 History Elemental)] Latanoprost/Pf [Latanoprost 0.005% 1 drop BOTH EYES HS 06/05/19 11/05/21 History Eye Drop] Timolol 0.25% Ophth Soln [Timoptic 1 drop BOTH EYES DAILY 06/05/19 11/05/21 History 0.25% Ophth Soln] lisinopriL [Zestril] 5 mg PO DAILY 06/05/19 11/05/21 History Naproxen Sodium [Aleve] 220 mg PO BID 11/05/21 11/05/21 History Allergies Allergy/AdvReac Type Severity Reaction Status Date / Time No Known Allergies Allergy Verified 11/05/21 15:57 Physical Exam Osteopathic Statement: *. No significant issues noted on an osteopathic structural exam other than those noted in the History and Physical/Consult. Vitals: Vital Signs Temp Pulse Resp BP Pulse Ox 11/05/21 13:08 97.7 F 65 16 131/82 96 Intake and Output 11/05/21 11/05/21 11/05/21 06:59 14:59 22:59 Output Total 600 Balance -600 Output: Urine 600 Straight 600 Other: Weight 92.2 kg Results CBC & Chem 7: 11/05/21 13:34 11/05/21 13:34 Labs: Abnormal Lab Results - Last 24 Hours (Table) 11/05/21 11/05/21 Range/Units 13:34 13:34 Carbon Dioxide 31 H (22-30) mmol/L Urine Blood Small H (Negative) Urine RBC 56 H (0-5) /hpf Urine Mucus Rare H (None) /hpf
--- NOTE | 2021-11-05 19:44 | US ---
EXAMINATION TYPE: US kidneys/renal and bladder CT DATE OF EXAM: 11/05/2021 COMPARISON: CT CLINICAL HISTORY: urianry retention. Urinary retention EXAM MEASUREMENTS: Right Kidney: 11.9 x 5.3 x 4.6 cm Left Kidney: 11.6 x 5.5 x 4.8 cm Right Kidney: Appeared wnl, no evidence of hydro Left Kidney: Cyst lower pole= 2.3 x 2.2 x 2.5 cm, no evidence of hydro Bladder: Pt has catheter in place IMPRESSION: Left renal cortical cyst. No evidence of solid renal mass or obstruction.
[2021-11-05] MEDS ORDERED: DONEPEZIL 5 MG TAB PO SCH (21:00)
[2021-11-05] MEDS: LATANOPROST 0.005% OPHTH DROPS 2.5 ML BTL BOTH EYES SCH (22:39)
[2021-11-05] MEDS: TAMSULOSIN 0.4 MG CAP.ER.24H PO SCH (22:39)
[2021-11-06 05:13] LABS: Glucose,Whole Blood 85 mg/dL (75-99)
[2021-11-06 06:59] LABS: Glucose,Whole Blood 94 mg/dL (75-99)
[2021-11-06] MEDS: lisinopriL 5 MG TAB PO SCH (07:25)
[2021-11-06] MEDS: ASPIRIN 81 MG PO SCH (07:25)
[2021-11-06] MEDS: TIMOLOL 0.25% OPHTH DROPS 5 ML BTL BOTH EYES SCH (07:26)
[2021-11-06 08:52] LABS: Basophils # (A) 0.04 X 10*3/uL (0.00-0.10); Basophils % (A) 0.5 %; Eosinophils # (A) 0.25 X 10*3/uL (0.04-0.35); Eosinophils % (A) 3.1 %; HCT 44.6 % (39.6-50.0); HGB 14.7 g/dL (13.0-17.0); Immature Grans, Automated 0.6 %; Lymphocytes # (A) 2.07 X 10*3/uL (0.90-5.00); Lymphocytes % (A) 25.7 %; MCH 29.8 pg (27.0-32.0); MCV 90.3 fL (80.0-97.0); Mean Platelet Volume 9.5 fL (9.5-12.2); Monocytes # (A) 0.73 X 10*3/uL (0.20-1.00); Monocytes % (A) 9.1 %; NRBC Per 100 WBC 0 /100 WBCS (0.0-0.0); Neutrophils # (A) 4.91 X 10*3/uL (1.80-7.70); Platelet Count 208 X 10*3/uL (140-440); RBC 4.94 X 10*6/uL (4.40-5.60); RDW 13.8 % (11.5-14.5); WBC 8.05 X 10*3/uL (4.50-10.00)
[2021-11-06 09:33] VITALS: BMI 31.8
[2021-11-06 09:50] LABS: African American GFR (CKD) 88.7 (60.0-200.0); Anion Gap 13.6 mmol/L (10.00-18.00); BUN/Creat Ratio 14.78 Ratio (12.00-20.00); Blood Urea Nitrogen 13.3 mg/dL (9.0-27.0); Carbon Dioxide 23.4 mmol/L (20.0-27.5); Non-African American GFR(CKD) 76.5 (60.0-200.0); Potassium 4.3 mmol/L (3.5-5.5)
[2021-11-06 11:29] LABS: Glucose,Whole Blood 94 mg/dL (75-99)
[2021-11-06] MEDS: FOLIC ACID 1 MG TAB PO SCH (11:57)
[2021-11-06] MEDS ORDERED: CYANOCOBALAMIN 1,000 MCG/ML 1 ML VIAL IM SCH (12:00)
--- NOTE | 2021-11-06 12:28 | P.CNNES ---
History of Present Illness Consult date: 11/06/21 Requesting physician: Sandra Hopson Reason for Consult: altered mentation History of Present Illness: This is an 86-year-old gentleman with medical history of cognitive impairment/dementia, coronary artery disease, hypertension, dyslipidemia, GERD, very hard of hearing bilaterally who presented emergency department because of decreased responsiveness. Neurology is consulted for altered mentation. History is obtained from patient daughter and his friend who are at bedside. It seems the patient has underlying dementia but he's more confused than normal the baseline. His care friend stated yesterday the patient had blank stare and was not talking. No jerking of any extremities. They denies patient has any history of seizures or stroke in past. He has dementia for past 4 years. He has sun- downing. Per medical records, EMS patient as alert to sternal rub only per the record yesterday. Some of the patient home medications: Aricept 5 mg daily at bedtime aspirin 81. He is on Vitamin B12 1000mcg daily. Some of the workup in our facility consisted of: Initial vital signs was blood pressure 131/82, heart rate of 65, respiratory of 16, temperature of 97.7 Fahrenheit oral and pulse ox of 96% room air. Patient has been afebrile in our facility. CT of the head is reported as no acute intracranial process. I personally reviewed the CT head and the I agree there is no acute subacute ischemia there is no to perform a hemorrhage appears CBC with differential is unremarkable Chemistry panels, Dr. orona when otherwise rest is unremarkable Ammonia is less than 9. Urinalysis is negative for urinary tract infection. Urine drug screen is not affected and serum alcohol was less than 10 Review of Systems Review of system is 10 point system is reviewed and pertinent positive and negative as per HPI. Past Medical History Past Medical History: Coronary Artery Disease (CAD), Chest Pain / Angina, Eye Disorder, GERD/Reflux, Hyperlipidemia, Hypertension, Memory Impairment, Osteoarthritis (OA) Additional Past Medical History / Comment(s): Bilateral macular degeneration, past arthritis R knee but has had a knee replacement, short term memory loss, sinus issues, pt and son unsure why pt is on lasix. History of Any Multi-Drug Resistant Organisms: None Reported Past Surgical History: Appendectomy, Heart Catheterization With Stent, Joint Replacement, Orthopedic Surgery Additional Past Surgical History / Comment(s): Total R knee arthroplasty, R knee partial menisectomy, EGD, colonoscopies, deviated septum, muhammad's cyst but pt cannot recall site.l Past Anesthesia/Blood Transfusion Reactions: No Reported Reaction Date of Last Stent Placement:: 08/25/17 Past Psychological History: No Psychological Hx Reported Additional Psychological History / Comment(s): Pt resides at [facility]. He uses no assistive device. He drives. His son, Sanjay stops in every morning except Sundays to have coffee with pt and arranges his medications for him. Son states pt always takes his morning meds while he is there but often forgets to take evening meds. Smoking Status: Unknown if ever smoked Past Alcohol Use History: Occasional Past Drug Use History: None Reported - Past Family History Father History Unknown: Yes Family Medical History: Asthma, CVA/TIA Additional Family Medical History / Comment(s): Father in his 60s from a head injury secondary to a fall. Mother History Unknown: Yes Family Medical History: No Reported History, Rheumatoid Arthritis (RA) Additional Family Medical History / Comment(s): Mother from old age in her 90s. Brother(s) Additional Family Medical History / Comment(s): Patient is a total of 4 brothers, one after falling off a motor home. 3 are alive and patient is not aware of any medical problems. Sister(s) Additional Family Medical History / Comment(s): Patient has 1 sister with no known medical problems Daughter(s) Additional Family Medical History / Comment(s): Patient has 1 daughter and 2 sons with no major medical problems. Medications and Allergies Home Medications Medication Instructions Recorded Confirmed Type Donepezil HCl [Aricept] 5 mg PO HS 07/16/18 11/05/21 History Loratadine [Claritin] 10 mg PO DAILY 07/16/18 11/05/21 History Aspirin [Adult Low Dose Aspirin EC] 81 mg PO DAILY 12/21/18 11/05/21 History Ferrous Sulfate [Iron (65 MG 325 mg PO DAILY 12/21/18 11/05/21 History Elemental)] Latanoprost/Pf [Latanoprost 0.005% 1 drop BOTH EYES HS 06/05/19 11/05/21 History Eye Drop] Timolol 0.25% Ophth Soln [Timoptic 1 drop BOTH EYES DAILY 06/05/19 11/05/21 History 0.25% Ophth Soln] lisinopriL [Zestril] 5 mg PO DAILY 06/05/19 11/05/21 History Naproxen Sodium [Aleve] 220 mg PO BID 11/05/21 11/05/21 History Allergies Allergy/AdvReac Type Severity Reaction Status Date / Time No Known Allergies Allergy Verified 11/05/21 15:57 Physical Examination - Vital Signs Vital Signs: Vital Signs Temp Pulse Pulse Resp BP BP Pulse Ox 11/06/21 07:21 97.5 F L 68 18 154/82 95 11/06/21 07:15 18 11/06/21 02:00 97.5 F L 70 18 116/78 93 L 11/05/21 19:28 97.8 F 76 15 128/76 96 11/05/21 13:08 97.7 F 65 16 131/82 96 Intake and Output 11/05/21 11/06/21 11/06/21 22:59 06:59 14:59 Output Total 1999 2099 Balance -1999 Output: Urine 1999 2100 Straight 600 Other: Voiding Method Indwelling Catheter Indwelling Catheter # Bowel Movements 1 1 Weight 92.2 kg 92.2 kg GENERAL: The patient is lying in bed and is not in acute distress. CHEST: The heart rate is regular rate rhythm. No murmurs to auscultation. LUNG: Clear to auscultation bilaterally no wheezing noted throughout. Not la bored breathing. ABDOMEN/GI: Bowel sounds present in all 4 quadrants. No tenderness to palpation throughout. NEUROLOGICAL: Higher mental function: The patient is awake, alert, oriented to self. He s tated the month is January. Could not tell place or time (per family is at baseline). Is following simple commands. No aphasia or neglect. Cranial nerves: The pupils are round, equal and reactive to light. Visual ramsey are full to confrontation throughout. Extraocular movement is intact no nystagmus is noted. The facial strength is normal throughout. Hearing is very hard of hearing bilaterally to hand rub. Tongue is midline and moved [id number] without any difficulty. No dysarthria is noted. Shoulder shrug is normal bilaterally. Motor: The strength is hard to assess individual muscles because of cooperation but lifting all above gravity without focality. Normal tone and bulk. Sensation: Sensation is normal to touch throughout. Reflexes (right/left): 1+ throughout. Plantars are mute bilaterally. Results - Laboratory Findings CBC and BMP: 11/06/21 05:18 11/06/21 05:18 Abnormal Lab Findings: Abnormal Labs 11/05/21 11/05/21 11/06/21 13:34 13:34 05:18 Immature Gran # 0.05 H Carbon Dioxide 31 H Urine Blood Small H Urine RBC 56 H Urine Mucus Rare H Assessment and Plan Assessment: Altered mental status: Encephalopathy of unknown etiology. Patient has underlying dementia but he is having worsening of his confusion with staring episode and was not talking yesterday. Rule out seizure vs stroke. ---currently back to baseline Very low normal vitamin B12 Low normal folate Underlying cognitive impairment/dementia for past 4 years. Urinary retention History of Coronary artery disease Hypertension Dyslipidemia Very hard of hearing GERD Plan: I ordered MRI the brain, urgent EEG. I will not start the patient on antiepileptic drug unless there is epileptiform discharges, seizure on the EEG or convincing sign this is a seizure. Ordered TSH. Vitamin B-12 is 218 on 08/17/2021 which is severely low normal normal supposed to be between 294 for therefore I started the patient on vitamin B12 initially 1000 g IM once then continues his home dose 1000mcg PO daily mouth daily. Serum folate is 6.50 on 08/17/2021 and that's considered also low normal normal supposed to be between 4.4-31. Every 4 hours neuro checks Primary team stopped Aricept since concerned that can worsen confusion as well as the result of urinary retention. We'll defer the rest of the medical management to primary team that The plan was discussed with the patient's daughter, friend (who are at bedside), nurse and the primary team. Thank you for the Consultation. Rene Vogel M.D. Neuro-hospitalist Time with Patient: Greater than 30
--- NOTE | 2021-11-06 12:49 | P.PN ---
Subjective Progress Note Date: 11/06/21 Hospital course: Patient is a 86-year-old male with history of coronary artery disease, GERD, hypertension, dyslipidemia, and dementia. He presented to the ER on 11/05/21 after being found by staff at [facility] with with decreased responsiveness. Per EMS report, pt was alert to sternal rub only. His glucose was 113 and on recheck 116 and vital signs were stable. Pt became more alert on the way to the ER. Upon arrival in the ER, he underwent full evaluation. His vital signs were stable. Laboratory and urinalysis were essentially unremarkable. Urine drug screen was normal. CT head s was negative for acute intracranial process. Chest x-ray was negative for acute cardiopulmonary process. Patient was found to have mild urinary retention and did have a Peter catheter placed with return of 600 mL of urine with hematuria present. Patient was admitted under our services with consultation to neurology. Physical examination: Patient seen and fully evaluated at bedside this morning. Patient resting comfortably and easily awoken via verbal stimuli. Patient was alert to person and place, but remains confused to situation and time. GCS 14. Other than confusion, patient showing no other neurological deficits. He denies having any headache, lightheadedness, dizziness, changes in vision or hearing, chest pain, palpitations, shortness of breath, or experiencing any numbness/tingling/weakness in his extremities. Discussed case with neurology, patient to remain hospitalized throughout the weekend as he will need EEG and MRI completed prior to being safely discharged. MRI and EEG is not able to be completed until Monday11/08/21. Neurology did speak with patient's family at bedside this morning. Vital signs reviewed General: non toxic, no distress, appears at stated age Derm: warm, dry Head: atraumatic, normocephalic, symmetric. Heart of hearing Eyes: EOMI, no lid lag, anicteric sclera, pupils equal round reactive to light ENT: Nose and ears atraumatic, no thrush, no pharyngeal erythema Neck: No cervical lymphadenopathy, trachea midline, supple Mouth: no lip lesion, mucus membranes moist Cardiovascular: S1S2 reg, no murmur, positive posterior tibial pulse bilateral, no edema, capillary refill less than 2 seconds Lungs: clear to ascultation bilateral, no ronchi, no rales, no wheeze, no accessory muscle use Abdominal: soft, nontender to palpation, no guarding, no appreciable organomegaly, normal bowel sounds Ext: no gross muscle atrophy, muscle strength muscle strength 4 out of 5 in all 4 extremities, no contractures Neuro: CN II-XII grossly intact, movement and sensation intact. Psych: Alert, oriented to person and place only, appropriate affect, calm and cooperative Assessment and plan of care: Acute alteration in mental status in patient with previously known history of memory impairments Reported loss of consciousness/decreased responsiveness, unable to rule out seizure vs TIA vs syncope Urinary retention -Neurology following, plans to complete MRI and EEG -Continue neuro checks every 4 hours -Continue with Peter catheter care, continue monitoring of I's and O's -Renal ultrasound negative for acute process. -PT/OT evaluation -Fall precautions -Safe and supportive care with reorientation as needed -Aricept held, Flomax initiated Chronic medical conditions include: Coronary artery disease GERD Dyslipidemia Hypertension Osteoarthritis Macular degeneration Short-term memory loss DVT prophylaxis: SCD Discussed with: patient, ED physician Anticipated discharge date: 11/05/[address]: return to [facility]. A total of 35 minutes was spent on the care of this complex patient more than 5 0% of the time was spent in counseling and care coordination. I reviewed the documentation as provided by the JANAE above, who is the original author of this note. I agree with the documented assessment and plan, with the following changes: None Objective - Vital Signs Vital signs: Vital Signs Temp 97.5 F L 11/06/21 07:21 Pulse 68 11/06/21 07:21 Resp 18 11/06/21 07:21 BP 154/82 11/06/21 07:21 Pulse Ox 95 11/06/21 07:21 FiO2 Intake & Output 11/05/21 11/06/21 11/06/21 18:59 06:59 18:59 Output Total 900 3200 Balance -900 -3200 Weight 92.2 kg Output: Urine 900 3200 Straight 600 Other: Voiding Method Indwelling Catheter # Bowel Movements 1 - Labs CBC & Chem 7: 11/06/21 05:18 11/06/21 05:18 Labs: Abnormal Lab Results - Last 24 Hours (Table) 11/05/21 11/05/21 Range/Units 13:34 13:34 Carbon Dioxide 31 H (22-30) mmol/L Urine Blood Small H (Negative) Urine RBC 56 H (0-5) /hpf Urine Mucus Rare H (None) /hpf
--- NOTE | 2021-11-06 13:12 | P.GSCN ---
History of Present Illness Consult date: 11/06/21 History of present illness: 86 yo male admitted because of altered mental status. HE was found to be in retention of 600 ml of urine on admission. He had a renal bladder us that didnot show any hydronephrosis. The urine did not look infected. According to the family the patient was urinating relatively well before his altered mental status. According the family his mental status is back to baseline. He does have dementia chronically. Review of Systems ROS unobtainable: due to mental status Past Medical History Past Medical History: Coronary Artery Disease (CAD), Chest Pain / Angina, Eye Disorder, GERD/Reflux, Hyperlipidemia, Hypertension, Memory Impairment, Osteoarthritis (OA) Additional Past Medical History / Comment(s): Bilateral macular degeneration, past arthritis R knee but has had a knee replacement, short term memory loss, sinus issues, pt and son unsure why pt is on lasix. History of Any Multi-Drug Resistant Organisms: None Reported Past Surgical History: Appendectomy, Heart Catheterization With Stent, Joint Replacement, Orthopedic Surgery Additional Past Surgical History / Comment(s): Total R knee arthroplasty, R knee partial menisectomy, EGD, colonoscopies, deviated septum, muhammad's cyst but pt cannot recall site.l Past Anesthesia/Blood Transfusion Reactions: No Reported Reaction Date of Last Stent Placement:: 08/25/17 Past Psychological History: No Psychological Hx Reported Additional Psychological History / Comment(s): Pt resides at [facility]. He uses no assistive device. He drives. His son, Sanjay stops in every morning except Sundays to have coffee with pt and arranges his medications for him. Son states pt always takes his morning meds while he is there but often forgets to take evening meds. Smoking Status: Unknown if ever smoked Past Alcohol Use History: Occasional Past Drug Use History: None Reported - Past Family History Father History Unknown: Yes Family Medical History: Asthma, CVA/TIA Additional Family Medical History / Comment(s): Father in his 60s from a head injury secondary to a fall. Mother History Unknown: Yes Family Medical History: No Reported History, Rheumatoid Arthritis (RA) Additional Family Medical History / Comment(s): Mother from old age in her 90s. Brother(s) Additional Family Medical History / Comment(s): Patient is a total of 4 brothers, one after falling off a motor home. 3 are alive and patient is not aware of any medical problems. Sister(s) Additional Family Medical History / Comment(s): Patient has 1 sister with no known medical problems Daughter(s) Additional Family Medical History / Comment(s): Patient has 1 daughter and 2 sons with no major medical problems. Medications and Allergies Home Medications Medication Instructions Recorded Confirmed Type Donepezil HCl [Aricept] 5 mg PO HS 07/16/18 11/05/21 History Loratadine [Claritin] 10 mg PO DAILY 07/16/18 11/05/21 History Aspirin [Adult Low Dose Aspirin EC] 81 mg PO DAILY 12/21/18 11/05/21 History Ferrous Sulfate [Iron (65 MG 325 mg PO DAILY 12/21/18 11/05/21 History Elemental)] Latanoprost/Pf [Latanoprost 0.005% 1 drop BOTH EYES HS 06/05/19 11/05/21 History Eye Drop] Timolol 0.25% Ophth Soln [Timoptic 1 drop BOTH EYES DAILY 06/05/19 11/05/21 History 0.25% Ophth Soln] lisinopriL [Zestril] 5 mg PO DAILY 06/05/19 11/05/21 History Naproxen Sodium [Aleve] 220 mg PO BID 11/05/21 11/05/21 History Allergies Allergy/AdvReac Type Severity Reaction Status Date / Time No Known Allergies Allergy Verified 11/05/21 15:57 Surgical - Exam Vital Signs Temp Pulse Resp BP Pulse Ox 97.7 F 65 16 131/82 96 11/05/21 13:08 11/05/21 13:08 11/05/21 13:08 11/05/21 13:08 11/05/21 13:08 - General well developed, well nourished, no distress - Eyes PERRL - ENT no hearing loss - Neck trachea midline - Respiratory normal expansion, normal respiratory effort - Cardiovascular Rhythm: regular - Abdomen Abdomen: soft, non tender - Genitourinary Indwelling catheter normal penis with no external lesions - Musculoskeletal normal posture - Psychiatric oriented to person Results - Labs 11/06/21 05:18 11/06/21 05:18 Abnormal Lab Results - Last 24 Hours (Table) 11/05/21 11/05/21 Range/Units 13:34 13:34 Carbon Dioxide 31 H (22-30) mmol/L Urine Blood Small H (Negative) Urine RBC 56 H (0-5) /hpf Urine Mucus Rare H (None) /hpf Diabetes panel 11/05/21 Range/Units 13:34 Sodium 140 (137-145) mmol/L Potassium 4.7 (3.5-5.1) mmol/L Chloride 104 (98-107) mmol/L Carbon Dioxide 31 H (22-30) mmol/L BUN 19 (9-20) mg/dL Creatinine 0.90 (0.66-1.25) mg/dL Glucose 92 (74-99) mg/dL Calcium 9.0 (8.4-10.2) mg/dL AST 21 (17-59) U/L ALT 15 (4-49) U/L Alkaline Phosphatase 56 (38-126) U/L Total Protein 6.9 (6.3-8.2) g/dL Albumin 4.3 (3.5-5.0) g/dL Calcium panel 11/05/21 Range/Units 13:34 Calcium 9.0 (8.4-10.2) mg/dL Albumin 4.3 (3.5-5.0) g/dL Pituitary panel 11/05/21 Range/Units 13:34 Sodium 140 (137-145) mmol/L Potassium 4.7 (3.5-5.1) mmol/L Chloride 104 (98-107) mmol/L Carbon Dioxide 31 H (22-30) mmol/L BUN 19 (9-20) mg/dL Creatinine 0.90 (0.66-1.25) mg/dL Glucose 92 (74-99) mg/dL Calcium 9.0 (8.4-10.2) mg/dL Adrenal panel 11/05/21 Range/Units 13:34 Sodium 140 (137-145) mmol/L Potassium 4.7 (3.5-5.1) mmol/L Chloride 104 (98-107) mmol/L Carbon Dioxide 31 H (22-30) mmol/L BUN 19 (9-20) mg/dL Creatinine 0.90 (0.66-1.25) mg/dL Glucose 92 (74-99) mg/dL Calcium 9.0 (8.4-10.2) mg/dL Total Bilirubin 0.5 (0.2-1.3) mg/dL AST 21 (17-59) U/L ALT 15 (4-49) U/L Alkaline Phosphatase 56 (38-126) U/L Total Protein 6.9 (6.3-8.2) g/dL Albumin 4.3 (3.5-5.0) g/dL - Imaging US - kidney/bladder: report reviewed, image reviewed Assessment and Plan Assessment: Impression: Urinary retention probably secondary to whatever caused a neurologic change. At this point time it does not appear to be urinary tract in origin as there is no evidence of infection. Recommendations I will remove the Peter catheter in the morning for a voiding trial.
[2021-11-06 16:53] LABS: Glucose,Whole Blood 93 mg/dL (75-99)
[2021-11-06] MEDS: TAMSULOSIN 0.4 MG CAP.ER.24H PO SCH (17:02)
[2021-11-06] MEDS: LATANOPROST 0.005% OPHTH DROPS 2.5 ML BTL BOTH EYES SCH (20:08)
[2021-11-07 00:08] LABS: Glucose,Whole Blood 97 mg/dL (75-99)
[2021-11-07 06:31] LABS: Glucose,Whole Blood 89 mg/dL (75-99)
[2021-11-07] MEDS: CYANOCOBALAMIN 500 MCG TAB PO SCH (08:02)
[2021-11-07] MEDS: FOLIC ACID 1 MG TAB PO SCH (08:03)
[2021-11-07] MEDS: ASPIRIN 81 MG PO SCH (08:03)
[2021-11-07] MEDS: lisinopriL 5 MG TAB PO SCH (08:03)
[2021-11-07] MEDS: TIMOLOL 0.25% OPHTH DROPS 5 ML BTL BOTH EYES SCH (08:04)
[2021-11-07 09:21] LABS: HCT 43.2 % (39.6-50.0); MCH 29.3 pg (27.0-32.0); MCHC 32.4 g/dL (32.0-37.0); MCV 90.4 fL (80.0-97.0); Mean Platelet Volume 9.6 fL (9.5-12.2); NRBC Per 100 WBC 0 /100 WBCS (0.0-0.0); Platelet Count 208 X 10*3/uL (140-440); RBC 4.78 X 10*6/uL (4.40-5.60); RDW 13.6 % (11.5-14.5); WBC 6.89 X 10*3/uL (4.50-10.00)
[2021-11-07 10:10] LABS: African American GFR (CKD) 87.2 (60.0-200.0); Albumin 4.2 g/dL (3.8-4.9); Albumin/Globulin Ratio 2.31 (1.60-3.17); Anion Gap 12.2 mmol/L (10.00-18.00); BUN/Creat Ratio 19.82 Ratio (12.00-20.00); Blood Urea Nitrogen 18.1 mg/dL (9.0-27.0); Calcium 9.3 mg/dL (8.7-10.3); Carbon Dioxide 25.3 mmol/L (20.0-27.5); Globulin 1.8 g/dL (1.6-3.3); Non-African American GFR(CKD) 75.2 (60.0-200.0); Potassium 4.2 mmol/L (3.5-5.5); Total Bilirubin 0.4 mg/dL (0.30-1.20); Total Protein 6.1 g/dL (6.2-8.2)
--- NOTE | 2021-11-07 10:15 | P.PN ---
Subjective Progress Note Date: 11/07/21 The patient is seen at bedside and per nurse he is about the same. No change in his neurological issues. Objective - Vital Signs Vital signs: Vital Signs Temp 97.8 F 11/07/21 08:00 Pulse 72 11/07/21 08:00 Resp 22 11/07/21 08:00 BP 140/79 11/07/21 08:00 Pulse Ox 98 11/07/21 08:00 FiO2 Intake & Output 11/06/21 11/07/21 11/07/21 18:59 06:59 18:59 Output Total 1200 900 Balance -1200 -900 Weight 92.2 kg Output: Urine 1200 900 Other: Voiding Method Indwelling Catheter Indwelling Catheter - Exam GENERAL: The patient is lying in bed and is not in acute distress. NEUROLOGICAL: The patient was asleep and just woke-up. Higher mental function: The patient is slightly drowsy but was awakeable. Was not oriented to self today. He is not oriented to place or time (per family baseline is oriented X1 (self)). . But he stated he was laying down on couch even though he was in bed. Is following very simple commands. . Cranial nerves: The pupils are round, equal and reactive to light. No facial weakness. Hearing is very hard of hearing bilaterally to hand rub. Tongue is midline and moved [id number] without any difficulty. No dysarthria is noted. Shoulder shrug is normal bilaterally. Motor: The strength is hard to assess individual muscles because of cooperation but lifting all above gravity without focality. Normal tone and bulk. Some of the workup in our facility during this hospital visit consisted of: CT of the head is reported as no acute intracranial process. I personally rev iewed the CT head and the I agree there is no acute subacute ischemia there is no to perform a hemorrhage appears CBC with differential is unremarkable Chemistry panels, Dr. sister when otherwise rest is unremarkable Ammonia is less than 9. Urinalysis is negative for urinary tract infection. Urine drug screen is not affected and serum alcohol was less than 10 - Labs CBC & Chem 7: 11/07/21 05:26 11/06/21 05:18 Labs: Microbiology - Last 24 Hours (Table) 11/05/21 13:34 Blood Culture - Preliminary Blood No Growth after 24 hours 11/05/21 13:34 Blood Culture - Preliminary Blood No Growth after 24 hours Assessment and Plan Assessment: Altered mental status: Encephalopathy of unknown etiology. Patient has underlying dementia but he is having worsening of his confusion with staring episode and was not talking yesterday. Rule out seizure vs stroke. (at baseline is oriented to self and today not). Possibly progression of his dem entia. Very low normal vitamin B12 is on vitamin B12 supplement Low normal folate Underlying cognitive impairment/dementia for past 4 years. Urinary retention History of Coronary artery disease Hypertension Dyslipidemia Very hard of hearing GERD Plan: I ordered MRI the brain, urgent EEG which will performed tomorrow. I will not start the patient on antiepileptic drug unless there is epileptiform discharges, seizure on the EEG or convincing sign this is a seizure. If patient could not cooperate for MRI Brain recommend repeat CT head. Vitamin B-12 is 218 on 08/17/2021 which is severely low normal normal supposed to be between 294. Continues his home dose 1000mcg PO daily mouth daily. Serum folate is 6.50 on 08/17/2021 and that's considered also low normal normal supposed to be between 4.4-31. Every 4 hours neuro checks Primary team stopped Aricept since concerned that can worsen confusion as well as the result of urinary retention. We'll defer the rest of the medical management to primary team that The plan was discussed with the patient's daughter, friend, his nurse and the primary team. Dr. Ferguson will start neurology coverage tomorrow AM. Rene Vogel M.D. Neuro-hospitalist Time with Patient: Less than 30
[2021-11-07 11:12] LABS: Glucose,Whole Blood 114 mg/dL (75-99)
--- NOTE | 2021-11-07 12:53 | P.PN ---
Subjective Progress Note Date: 11/07/21 The patient is in the hospital with mental status changes and urinary retention. The catheter will was removed this morning he has yet to void. We'll see her voids before we make further determination as to the bladder status. Objective - Vital Signs Vital signs: Vital Signs Temp 97.8 F 11/07/21 08:00 Pulse 72 11/07/21 08:00 Resp 22 11/07/21 08:00 BP 140/79 11/07/21 08:00 Pulse Ox 98 11/07/21 08:00 FiO2 Intake & Output 11/06/21 11/07/21 11/07/21 18:59 06:59 18:59 Output Total 1200 900 Balance -1200 -900 Weight 92.2 kg Output: Urine 1200 900 Other: Voiding Method Indwelling Catheter Indwelling Catheter # Bowel Movements 1 - Labs CBC & Chem 7: 11/07/21 05:26 11/07/21 05:26 Labs: Abnormal Lab Results - Last 24 Hours (Table) 11/07/21 11/07/21 Range/Units 05:26 11:11 POC Glucose (mg/dL) 114 H (75-99) mg/dL Total Protein 6.1 L (6.2-8.2) g/dL Microbiology - Last 24 Hours (Table) 11/05/21 13:34 Blood Culture - Preliminary Blood No Growth after 24 hours 11/05/21 13:34 Blood Culture - Preliminary Blood No Growth after 24 hours
--- NOTE | 2021-11-07 16:26 | P.PN ---
Subjective Progress Note Date: 11/07/21 Patient is a 86-year-old male with history of coronary artery disease, GERD, hypertension, dyslipidemia, and dementia. He presented to the ER on 11/05/21 after being found by staff at [facility] with with decreased responsiveness. Per EMS report, pt was alert to sternal rub only. His glucose was 113 and on recheck 116 and vital signs were stable. Pt became more alert on the way to the ER. Upon arrival in the ER, he underwent full evaluation. His vital signs were stable. Laboratory and urinalysis were essentially unremarkable. Urine drug screen was normal. CT head s was negative for acute intracranial process. Chest x-ray was negative for acute cardiopulmonary process. Patient was found to have mild urinary retention and did have a Peter catheter placed with return of 600 mL of urine with hematuria present. Patient was admitted under our services with consultation to neurology. Subjective Patient seen and evaluated at bedside, today patient does not report any worsening of his breathing or report any new significant chest pain. Patient remains in no acute distress. Patient questions and concerns addressed at bedside, proper counseling done. Plan discussed with nursing staff. Assessment and plan Acute alteration in mental status in patient with previously known history of memory impairments Reported loss of consciousness/decreased responsiveness, unable to rule out seizure vs TIA vs syncope Patient has history of dementia and has episodes of sundowning and acute confusion head and there but usually in the evening time provided this is the first time the episode happened in the daytime. Neurology following, plans to complete MRI and EEG Patient was also found out to have low vitamin B12 and serum folate, continue replacement Continue neuro checks every 4 hours PTOT evaluation, fall precautions lottery office manager consulted for discharge planning Urine retention Continue with Peter catheter care, continue monitoring of I's and O's Vitamin B12 and folate deficiency Continue replacement as mentioned above Chronic medical conditions include: Coronary artery disease GERD Dyslipidemia Hypertension Osteoarthritis Macular degeneration Short-term memory loss DVT prophylaxis: SCD Anticipated discharge date: 11/08/[address]: return to [facility]. Objective - Vital Signs Vital signs: Vital Signs Temp 97.7 F 11/07/21 13:32 Pulse 72 11/07/21 13:32 Resp 22 11/07/21 08:00 BP 144/89 11/07/21 13:32 Pulse Ox 96 11/07/21 13:32 FiO2 Intake & Output 11/06/21 11/07/2111/07/22 18:59 06:59 18:59 Output Total 1200 900 700 Balance -1200 -900 -700 Weight 92.2 kg Output: Urine 1200 900 700 Uretheral (Peter) 700 Other: Voiding Method Indwelling Catheter Indwelling Catheter # Bowel Movements 1 General: No acute distress Head: atraumatic, normocephalic, symmetric Eyes: no lid lesion], anicteric sclera Mouth: no lip lesion, mucus membranes moist Cardiovascular: S1S2 reg rate and rhythm, no murmur, no gallop Lungs: Bilateral equal air entry, no wheezing no rhonchi no crackles. Abdominal: soft, nontender to palpation, no guarding, no appreciable organomegaly Ext: no gross muscle atrophy, no edema extremities warm to suppose a positive Neuro: Alert oriented x 1, examination grossly nonfocal - Labs CBC & Chem 7: 11/07/21 05:26 11/07/21 05:26 Labs: Abnormal Lab Results - Last 24 Hours (Table) 11/07/21 11/07/21 Range/Units 05:26 11:11 POC Glucose (mg/dL) 114 H (75-99) mg/dL Total Protein 6.1 L (6.2-8.2) g/dL Microbiology - Last 24 Hours (Table) 11/05/21 13:34 Blood Culture - Preliminary Blood No Growth after 48 hours 11/05/21 13:34 Blood Culture - Preliminary Blood No Growth after 48 hours
[2021-11-07] MEDS: TAMSULOSIN 0.4 MG CAP.ER.24H PO SCH (17:34)
[2021-11-07 17:58] LABS: Glucose,Whole Blood 126 mg/dL (75-99)
[2021-11-07] MEDS: LATANOPROST 0.005% OPHTH DROPS 2.5 ML BTL BOTH EYES SCH (20:05)
[2021-11-08 06:49] LABS: Glucose,Whole Blood 96 mg/dL (75-99)
[2021-11-08] MEDS: ASPIRIN 81 MG PO SCH (09:08)
[2021-11-08] MEDS: lisinopriL 5 MG TAB PO SCH (09:08)
[2021-11-08] MEDS: FOLIC ACID 1 MG TAB PO SCH (09:08)
[2021-11-08] MEDS: CYANOCOBALAMIN 500 MCG TAB PO SCH (09:08)
[2021-11-08] MEDS: TIMOLOL 0.25% OPHTH DROPS 5 ML BTL BOTH EYES SCH (09:09)
--- NOTE | 2021-11-08 11:46 | P.PN ---
Subjective Case discussed with caregiver present at bedside. Patient to obtain MRI and EEG. Case discussed with RN present at bedside. Objective - Vital Signs Vital signs: Vital Signs Temp 97.9 F 11/08/21 08:00 Pulse 83 11/08/21 08:00 Resp 18 11/08/21 08:00 BP 115/72 11/08/21 08:00 Pulse Ox 93 L 11/08/21 08:00 FiO2 Intake & Output 11/07/21 11/08/21 11/08/21 18:59 06:59 18:59 Output Total 700 1000 Balance -700 -1000 Output: Urine 700 1000 Uretheral (Peter) 700 Other: Voiding Method Indwelling Catheter # Bowel Movements 2 - Exam General: No acute distress Head: atraumatic, normocephalic, symmetric Eyes: no lid lesion], anicteric sclera Mouth: no lip lesion, mucus membranes moist Cardiovascular: S1S2 reg rate and rhythm, no murmur, no gallop Lungs: Bilateral equal air entry, no wheezing no rhonchi no crackles. Abdominal: soft, nontender to palpation, no guarding, no appreciable organomegaly Ext: no gross muscle atrophy, no edema extremities warm to suppose a positive Neuro: Alert oriented x 1, examination grossly nonfocal - Labs CBC & Chem 7: 11/07/21 05:26 11/07/21 05:26 Labs: Abnormal Lab Results - Last 24 Hours (Table) 11/07/21 Range/Units 17:56 POC Glucose (mg/dL) 126 H (75-99) mg/dL Microbiology - Last 24 Hours (Table) 11/05/21 13:34 Blood Culture - Preliminary Blood No Growth after 48 hours 11/05/21 13:34 Blood Culture - Preliminary Blood No Growth after 48 hours Assessment and Plan Assessment: Acute alteration in mental status in patient with previously known history of memory impairments Reported loss of consciousness/decreased responsiveness, unable to rule out seizure vs TIA vs syncope Patient has history of dementia and has episodes of sundowning and acute confusion head and there but usually in the evening time provided this is the first time the episode happened in the daytime. Neurology following, plans to complete MRI and EEG today Patient was also found out to have low vitamin B12 and serum folate, continue replacement Continue neuro checks every 4 hours PTOT evaluation, fall precautions plant general manager consulted for discharge planning Urine retention Continue with Peter catheter care, continue monitoring of I's and O's Vitamin B12 and folate deficiency Continue replacement as mentioned above Chronic medical conditions include: Coronary artery disease GERD Dyslipidemia Hypertension Osteoarthritis Macular degeneration Short-term memory loss DVT prophylaxis: SCD Anticipated discharge date: 11/08/[address]: return to [facility].
--- NOTE | 2021-11-08 12:13 | P.PN ---
Progress Note - Text Progress Note Date: 11/08/21 Peter was removed yesterday, patient was unable to void, Peter was placed for a postvoid residual of [address] draining clear yellow urine. At this time recommend continuing Flomax, can follow-up as an outpatient with Dr. Bell for a trial of void. Recommend discharging home on Flomax
--- NOTE | 2021-11-08 12:25 | EEG ---
ELECTROENCEPHALOGRAM REPORT DATE OF SERVICE: November 08, 2021 PREAMBLE: This is an 86-year-old male with history of altered mental status, came to the hospital with decreased responsiveness. Patient was very confused and was having a hard time staying still for the study. Current medications: Aspirin, Zestril, and melatonin. EEG FINDINGS: A 21 channel digital EEG recorded with video component, utilizing 10/20 international system with referential and bipolar montages. Background consists of moderately well- developed, not very well regulated, predominantly 6-7 hertz theta activity seen in bihemispheric region. Background does not seem to be reactive to eye opening or closing. Occasional delta slowing was also seen. Different stages of sleep were not seen. No focal or generalized epileptiform activity was seen. Frequent myogenic activity was seen during this study. IMPRESSION: This is an abnormal EEG due to background slowing of mild to moderate degree. This is suggestive of generalized cerebral dysfunction as can be seen with toxic metabolic encephalopathy or related to diffuse structural brain abnormality. Clinical correlation is recommended. No epileptiform activity was seen. MMNBAL / AMILCARN: [id number] /
--- NOTE | 2021-11-08 13:32 | MR ---
EXAMINATION TYPE: MR brain wo/w con DATE OF EXAM: 11/08/2021 COMPARISON: CT brain 11/05/2021 HISTORY: altered mental status TECHNIQUE: Multiplanar, multisequence images of the brain and brainstem is performed without and with IV contras t, utilizing 9ml mL intravenous Gadavist . FINDINGS: Diffusion weighted images demonstrate no evidence of a recent infarct or other diffusion ab normality. There is no extra-axial fluid collection. The ventricular system and cisternal spaces ar e enlarged. Periventricular and pericallosal hyperintensities present on inversion recovery T2-weigh chaya sequences in a confluent pattern, there are additional scattered subcortical hyperintensities on inversion recovery and T2-weighted sequences, focal encephalomalacia is present in the right frontal lobe subcentimeter in size. The brain volume is remarkable for cortical atrophy. Midline structures demonstrate normal morphology. The craniocervical junction appears within normal limits. Post contrast images demonstrate no abnormal enhancement. The dural venous sinuses appear pa tent. The visualized sinuses are clear and the globes are intact. Mastoid air shows show inflammatory change, increased signal on inversion recovery T2-weighted sequences. IMPRESSION: Age-related atrophy, chronic small vessel ischemic changes. Correlate for possible normal pressure hydrocephalus.
[2021-11-08] MEDS: TAMSULOSIN 0.4 MG CAP.ER.24H PO SCH (18:29)
[2021-11-08] MEDS: DONEPEZIL 10 MG TAB PO SCH (20:48)
[2021-11-08 21:37] LABS: Glucose,Whole Blood 94 mg/dL (75-99)
[2021-11-09] MEDS: LATANOPROST 0.005% OPHTH DROPS 2.5 ML BTL BOTH EYES SCH ×2 (00:19→21:43)
[2021-11-09 00:38] LABS: Glucose,Whole Blood 94 mg/dL (75-99)
[2021-11-09] MEDS: FOLIC ACID 1 MG TAB PO SCH (08:38)
[2021-11-09] MEDS: ASPIRIN 81 MG PO SCH (08:38)
[2021-11-09] MEDS: CYANOCOBALAMIN 500 MCG TAB PO SCH (08:38)
[2021-11-09] MEDS: lisinopriL 5 MG TAB PO SCH (08:38)
[2021-11-09] MEDS: TIMOLOL 0.25% OPHTH DROPS 5 ML BTL BOTH EYES SCH (08:38)
[2021-11-09] MEDS ORDERED: CYANOCOBALAMIN 500 MCG TAB PO SCH (09:00)
--- NOTE | 2021-11-09 09:59 | P.PN ---
Subjective Progress Note Date: 11/08/21 Patient was initially seen by Dr. Rene Vogel. Please refer to his note for details. Patient is an 86-year-old male with dementia, who had episode of confusion and could not talk. Patient underwent EEG and MRI of the brain. Patient's son Alcon was present. He believes patient's memory has gotten worse for last 2 years, progressively getting worse. He usually walks by himself without any assistance. He prefers not to use walker, as his son states that he is "stubborn". He lives with his girlfriend in [facility]. No report of urine control issues. Objective - Vital Signs Vital signs: Vital Signs Temp 97.9 F 11/08/21 14:00 Pulse 73 11/08/21 14:00 Resp 16 11/08/21 14:00 BP 144/79 11/08/21 14:00 Pulse Ox 93 L 11/08/21 14:00 FiO2 Intake & Output 11/07/21 11/08/21 11/08/21 18:59 06:59 18:59 Output Total 700 1000 Balance -700 -1000 Output: Urine 700 1000 Uretheral (Peter) 700 Other: Voiding Method Indwelling Catheter Indwelling Catheter # Bowel Movements 2 - Exam Patient is alert and awake, pleasantly confused, in no acute distress. Patient frequently smiles. He knows his name Sunny, states he is 79 years of age. His son Alcon was present next to him. Patient could not recognize his son. Even when patient's son took off his facial mask, he still could not recognize his son. Patient does tell me that he has 3 children and knows their name Rupert, Alcon, and Rosie. Even then he could not recognize his son Alcon sitting next to him. He could not tell name of the current president. At one time he said it was Obama, then said was Melendrez. He could not denies Mr. Valdivia when multiple names were presented. He states is August and the year is . Patient's pupils are equal, round and reacting, visual ramsey are full, face is symmetric and tongue protrudes the midline. Muscle strength is normal in the arms. No ataxia. Tone is normal. - Labs CBC & Chem 7: 11/07/21 05:26 11/07/21 05:26 Labs: Microbiology - Last 24 Hours (Table) 11/05/21 13:34 Blood Culture - Preliminary Blood No Growth after 72 hours 11/05/21 13:34 Blood Culture - Preliminary Blood No Growth after 72 hours Assessment and Plan Assessment: * Altered mental status: Encephalopathy of unknown etiology. Patient has underlying dementia but he is having worsening of his confusion with staring episode and was not talking yesterday. Rule out seizure vs stroke. (at baseline is oriented to self and today not). Possibly progression of his dementia. Very low normal vitamin B12 is on vitamin B12 supplement Low normal folate Underlying cognitive impairment/dementia for past 4 years. Urinary retention History of Coronary artery disease Hypertension Dyslipidemia Very hard of hearing GERD Dementia, advanced stage. Plan: MRI of the brain was performed today. It revealed age-related atrophy, chronic small vessel ischemic changes. Correlate for possible normal pressure hydroceph alus. I personally reviewed MRI of the brain and agree with the findings. 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 Patient's dementia appears quite advanced that I'm not sure ventriculoperitoneal shunting will be beneficial at this stage, and also due to his advanced age. I discussed with patient's son about neurosurgical evaluation, but he wants to discuss with his family members and let us know tomorrow. This can be considered as an outpatient. EEG was performed, which is abnormal EEG due to background slowing of mild to moderate degree. This is suggestive of generalized cerebral dysfunction as can be seen with toxic metabolic encephalopathy or related to diffuse structural brain abnormality. Clinical correlation is recommended. No epileptiform activity was seen. No indication for antiepileptic medication, as EEG did not show any epileptiform activity. Vitamin B-12 is 218 on 08/17/2021 which is severely low normal normal supposed to be between 200-294. Continues his home dose 1000mcg PO daily mouth daily. Serum folate is 6.50 on 08/17/2021 and that's considered also low normal normal supposed to be between 4.4-31. Continue folic acid 1 mg daily. Patient's dementia seems to be quite advanced. We will increase Aricept from 5 to 10 mg daily. He may benefit from addition of Namenda in the future. His urinary retention could be related to possible NPH. We'll defer the rest of the medical management to primary team that
[2021-11-09 12:45] LABS: Glucose,Whole Blood 92 mg/dL (75-99)
--- NOTE | 2021-11-09 14:33 | CT ---
EXAMINATION TYPE: CT brain wo con DATE OF EXAM: 11/09/2021 COMPARISON: 11/05/2021 HISTORY: 86-year-old male altered mental status, confusion TECHNIQUE: Examination was done in axial plane without intravenous contrast. Coronal and sagittal r econstructions performed. CT DLP: 1202.4 mGycm Automated exposure control for dose reduction was used. FINDINGS: There is no evidence of acute intracranial hemorrhage, acute ischemic changes, mass, mass-effect, or extra-axial fluid collection. There is no effacement of cerebral sulci or basal subarachnoid cister ns. Moderate ventriculomegaly is unchanged. Normal variant persistent PSV. There is no midline shift. Roman-white matter distinction is preserved. Rightward nasal septal deviation. Trace mucosal thickening anterior ethmoid air cells. Cerumen left e xternal auditory canal. Orbits and globes appear intact. Some type of external debris anterior to the left globe. Clinically correlate. IMPRESSION: Similar moderate ventriculomegaly. Correlate for possible NPH. Otherwise, no acute intracranial abnor mality seen.
--- NOTE | 2021-11-09 16:02 | US ---
EXAMINATION TYPE: US carotid duplex BILAT DATE OF EXAM: 11/09/2021 COMPARISON: CT,MR CLINICAL HISTORY: Possible TIAs. Possible TIAs, hypertension. EXAM MEASUREMENTS: RIGHT: Peak Systolic Velocity (PSV) cm/sec ----- Right CCA: 80.9 ----- Right ICA: 64.3 ----- Right ECA: 65.2 ICA/CCA ratio: 0.8 RIGHT: End Diastole cm/sec ----- Right CCA: 12.8 ----- Right ICA: 16.6 ----- Right ECA: 0.0 LEFT: Peak Systolic Velocity (PSV) cm/sec ----- Left CCA: 112.8 ----- Left ICA: 92.5 Bulb measurement ----- Left ECA: 63.1 ICA/CCA ratio: 0.8 LEFT: End Diastole cm/sec ----- Left CCA: 12.5 ----- Left ICA: 9.6 Bulb measurement ----- Left ECA: 0.0 VERTEBRALS (direction of flow): Right Vertebral: Antegrade Left Vertebral: Antegrade Rhythm: Normal Exam is very limited, patient kept falling asleep. Grayscale, color Doppler, spectral Doppler jermaine ging performed the carotid arteries. Waveform analysis does not show significant stenosis of the inte rnal carotid arteries. Plaque seen within bilateral bulbs. IMPRESSION: No hemodynamic significant stenosis of the proximal internal carotid arteries by Doppler criteria, an indirect measurement of carotid stenosis Criteria for Assigning % of Stenosis / Diameter reduction (Estimation based on the indirect measurements of the internal carotid artery velocities (ICA PSV). 1. Normal (no stenosis)=ICA PSV < 125 cm/s: ratio < 2.0: ICA EDV<40 cm/s. 2. Less than 50% stenosis=ICA PSV < 125 cm/s: ratio < 2.0: ICA EDV<40 cm/s. 3. 50 to 69% stenosis=ICA PSV of 125 to 230 cm/s: ration 2.0 ? 4.0: ICA EDV 40-100 cm/s. 4. Greater than 70% stenosis to near occlusion= ICA PSV > 230 cm/s: ratio > 4.0: ICA EDV > 100 cm/s. 5. Near occlusion= ICA PSV velocities may be low or undetectable: variable ratio and ICA EDV. 6. Total occlusion=unable to detect flow.
--- NOTE | 2021-11-09 16:26 | P.PN ---
Subjective Patient was examined at bedside. History was obtained by family member and RN present at bedside. Apparently the patient had an episode where his eyes rolled back but no witnessed seizure-like activity was noted. Patient was altered and responding only to sternal rub. I discussed the case with neurology. We have ordered a computed tomography scan of the brain stat and neurology is also ordered carotid ultrasound. Objective - Vital Signs Vital signs: Vital Signs Temp 97.3 F L 11/09/21 08:00 Pulse 86 11/09/21 08:00 Resp 16 11/09/21 08:00 BP 136/84 11/09/21 08:00 Pulse Ox 99 11/09/21 08:00 FiO2 Intake & Output 11/08/21 11/09/21 11/09/21 18:59 06:59 18:59 Output Total 800 Balance -800 Output: Urine 800 Other: Voiding Method Indwelling Catheter Indwelling Catheter Indwelling Catheter - Exam General: No acute distress Head: atraumatic, normocephalic, symmetric Eyes: no lid lesion], anicteric sclera Mouth: no lip lesion, mucus membranes moist Cardiovascular: S1S2 reg rate and rhythm, no murmur, no gallop Lungs: Bilateral equal air entry, no wheezing no rhonchi no crackles. Abdominal: soft, nontender to palpation, no guarding, no appreciable organomegaly Ext: no gross muscle atrophy, no edema extremities warm to suppose a positive Neuro: Patient seems to be altered today only responding to sternal rub - Labs CBC & Chem 7: 11/07/21 05:26 11/07/21 05:26 Labs: Microbiology - Last 24 Hours (Table) 11/05/21 13:34 Blood Culture - Preliminary Blood No Growth after 96 hours 11/05/21 13:34 Blood Culture - Preliminary Blood No Growth after 96 hours Assessment and Plan Assessment: Acute alteration in mental status in patient with previously known history of memory impairments Reported loss of consciousness/decreased responsiveness, unable to rule out seizure vs TIA vs syncope Patient has history of dementia and has episodes of sundowning and acute confusion head and there but usually in the evening time provided this is the first time the episode happened in the daytime. Continue neuro checks every [address] brain and carotid ultrasound ordered Urine retention Continue with Peter catheter care, continue monitoring of I's and O's Vitamin B12 and folate deficiency Continue replacement as mentioned above Chronic medical conditions include: Coronary artery disease GERD Dyslipidemia Hypertension Osteoarthritis Macular degeneration Short-term memory loss DVT prophylaxis: SCD Anticipated discharge date: 11/08/[address]: return to [facility]. CODE STATUS DNR/DNI
[2021-11-09] MEDS: TAMSULOSIN 0.4 MG CAP.ER.24H PO SCH (16:44)
[2021-11-09 17:47] LABS: Glucose,Whole Blood 104 mg/dL (75-99)
[2021-11-09] MEDS: DONEPEZIL 10 MG TAB PO SCH (21:43)
[2021-11-10 00:03] LABS: Glucose,Whole Blood 87 mg/dL (75-99)
[2021-11-10 05:42] LABS: Glucose,Whole Blood 89 mg/dL (75-99)
[2021-11-10] MEDS: ASPIRIN 81 MG PO SCH (07:43)
[2021-11-10] MEDS: CYANOCOBALAMIN 500 MCG TAB PO SCH (07:43)
[2021-11-10] MEDS: FOLIC ACID 1 MG TAB PO SCH (07:44)
[2021-11-10] MEDS: TIMOLOL 0.25% OPHTH DROPS 5 ML BTL BOTH EYES SCH (07:44)
[2021-11-10] MEDS: lisinopriL 5 MG TAB PO SCH (07:44)
--- NOTE | 2021-11-10 08:17 | P.PN ---
Subjective Progress Note Date: 11/09/21 11/09/2021: Patient apparently had a similar episode of unresponsiveness that started at around 12:45 PM. Patient's family members were present at that time. They were having conversation, patient was given lunch, when he stopped responding, appeared as if he has gone to sleep. However he would not respond to calling his name. Later he was awake, but was very staring off in space. There was no seizure-like activity or shaking noted. I came to see the patient shortly. Patient was laying in the bed, keeping his eyes closed, and would not respond to calling his name. However when he was given nailbed pressure, he did wake up, but still could not speak at all. He then became very selective in his responses, as he would not let me touch him at all. He would actively move his hands away when I would ask him to make a tight dispatch machine runner. However he would respond to his girlfriend and is [id number]. She notices that his left dispatch machine runner was minimally weaker as compared to the right. However there was no pronator drift noted. Please refer to examination below. Telemetry monitoring was not on at that time. After it was started, patient was in sinus rhythm. His vitals were stable throughout this event. 11/08/2021: Patient was initially seen by Dr. Rene Vogel. Please refer to his note for details. Patient is an 86-year-old male with dementia, who had episode of confusion and could not talk. Patient underwent EEG and MRI of the brain. Patient's son Alcon was present. He believes patient's memory has gotten worse for last 2 years, progressively getting worse. He usually walks by himself without any assistance. He prefers not to use walker, as his son states that he is "stubborn". He lives with his girlfriend in [facility]. No report of urine control issues. Objective - Vital Signs Vital signs: Vital Signs Temp 97.4 F L 11/10/21 07:58 Pulse 88 11/10/21 07:58 Resp 15 11/10/21 07:58 BP 117/72 11/10/21 07:58 Pulse Ox 92 L 11/10/21 07:58 FiO2 Intake & Output 11/09/21 11/10/21 11/10/21 18:59 06:59 18:59 Output Total 600 100 Balance -600 -100 Output: Urine 600 100 Other: Voiding Method Indwelling Catheter Indwelling Catheter - Exam Patient is less responsive today. He did not respond to calling his name, but did open his eyes to nailbed pressure. Patient became slightly irritable afterwards. He would not let me examine him at all. He would squeeze hands of his [id number]-ual, but would not let me touch him at all. He then started becoming emotional, started crying for no reason. He has never done this before. Patient's family denies any history of depression. Patient's pupils were equal, round and reacting. Visual ramsey could not be tested. Face appears symmetric. He did not protrude his tongue. There was no pronator drift. Patient's [id number]-uxc noticed that his dispatch machine runner was slightly weaker on the left as compared to the right. Patient was moving his legs equally. Also moving his arms somewhat equally. Patient is very hard of hea ring. Patient's plantars are withdrawal bilaterally (patient extremely ticklish), equal response on either side. No seizure-like activity noticed. - Labs CBC & Chem 7: 11/07/21 05:26 11/07/21 05:26 Labs: Abnormal Lab Results - Last 24 Hours (Table) 11/09/21 Range/Units 17:43 POC Glucose (mg/dL) 104 H (75-99) mg/dL Microbiology - Last 24 Hours (Table) 11/05/21 13:34 Blood Culture - Preliminary Blood No Growth after 96 hours 11/05/21 13:34 Blood Culture - Preliminary Blood No Growth after 96 hours Assessment and Plan Assessment: * Episode of altered mental status, with decreased responsiveness. This is the second spell happened today in the hospital (after the initial one just prior to presentation to the hospital). There was no convulsive activity noticed. Exam was relatively nonfocal although patient's soeihrau-at-uuz noticed the dispatch machine runner was slightly less in the left hand as compared to the right. TIA in the differential. * Normal pressure hydrocephalus * Advanced dementia. * Vitamin B12 deficiency * Folate deficiency * Urinary retention * CAD * Hypertension * Hyperlipidemia * Very hard of hearing. Plan: Patient today had second episode of unresponsiveness after the initial one happened prior to admission to the hospital. His vitals remained stable. Stat computed tomography scan of the head was performed, which revealed similar moderate ventriculomegaly. Correlate for possible NPH. Check stat carotid Doppler, 2-D echo. Start Telemetry monitoring. Rhythm normal sinus. MRI of the brain 11/08/2021 revealed age-related atrophy, chronic small vessel ischemic changes. Correlate for possible normal pressure hydrocephalus. I personally reviewed MRI of the brain and agree with the findings. Patient has normal pressure hydrocephalus, however his dementia is very well advanced. Patient's family does not want any aggressive treatment at this time. They do not want neurosurgical consultation at this point. EEG 11/08/2021 was abnormal EEG due to background slowing of mild to moderate degree. This is suggestive of generalized cerebral dysfunction as can be seen with toxic metabolic encephalopathy or related to diffuse structural brain abnormality. Clinical correlation is recommended. No epileptiform activity was seen. No indication for antiepileptic medication, as EEG did not show any epileptiform activity. Vitamin B-12 is 218 on 08/17/2021 which is severely low normal normal supposed to be between 200-294. Continues his home dose 1000mcg PO daily mouth daily. Serum folate is 6.50 on 08/17/2021 and that's considered also low normal normal supposed to be between 4.4-31. Continue folic acid 1 mg daily. Patient's dementia seems to be quite advanced. We will increase Aricept from 5 to 10 mg daily. He may benefit from addition of Namenda in the future. Neurology will follow. Time with Patient: Greater than 30
--- NOTE | 2021-11-10 10:21 | CDI ---
Documentation Clarification Form Date: 11/10/2021 10:17:00 AM From: Palak Durham RN, CCDS Admit Date: 11/08/2021 09:22:00 AM Patient Name: Ned Hill Visit Number: [id number] Discharge Date: ATTENTION: The Clinical Documentation Specialists (CDI) and [facility] Coding Staff appreciate your assistance in clarifying documentation. Please respond to the clarification below the line at the bottom and electronically sign. The CDI & [facility] Coding staff will review the response and follow-up if needed. Please note: Queries are made part of the Legal Health Record. If you have any questions, please contact the author of this message via ITS. Dr. Cristy Ferguson Advanced dementia is documented in your progress note on 11/09/21. Additional clarification regarding the type of dementia is requested. Patient history/risk factors: Dementia, CAD, Hypertension, Clinical indicators: 86-year-old male present with episode of unresponsiveness, confusion and could not talk. Progress note advanced dementia. 11/07 Labs: WBC 6.89, HGB 14.0, and CR 0.9 11/08 EEG: Abnormal slowing of mild to moderate degree. This suggestive of generalized cerebral dysfunction as can be seen with toxic metabolic encephalopathy or related to diffuse structure brain abnormality. 11/08 CT Brain: age-related atrophy, chronic small vessel ischemic changes. 11/09 CT Brain: Normal pressure hydrocephalus Treatment: Cardiac Monitory/Telemetry Neurological assessment per protocol Aricept 10 MG PO HS Please further clarify the type advanced dementia, if known: [ ] Alzheimers disease (specify if early (presenile) or late (senile) onset) [ ] Parkinsons disease [ ] Senile (specify if with or without confusional state) [ ] Vascular (specify if arteriosclerosis or sequel of cerebrovascular disease) [ ] Lewy body [ ] Other condition or cause of dementia, please specify [ ] Unable to determine Please indicate any behavioral disturbances associated with the condition (such as aggression, combative or wandering) (Template Last Revised: July 2020) In my opinion it is late onset senile dementia, probable Alzheimer's dementia. Patient also has mild hydrocephalus (probable NPH) which is also mildly contributing. Please let me know if any other concerns. Thank you. MD EDU Mcelroy
--- NOTE | 2021-11-10 11:08 | CA ---
Transthoracic Echo Report Name: Ned Hill Age: 86 Gender: M : 1935 Exam Date: 11/09/2021 14:19 Exam Location: [facility] Ht (in): 67 Wt (lb): 207 Ordering Physician: Cristy Ferguson MD Attending/Referring Phys: Electrotype Finisher Jennifer Pascual, TAE Procedure CPT: Indications: Possible TIAs Cardiac Hx: Technical Quality: Good Contrast 1: N/A Total Dose (mL): Contrast 2: Total Dose (mL): MEASUREMENTS (Male / Female) Normal Values 2D ECHO LV Diastolic Diameter PLAX 4.8 cm 4.2 - 5.9 / 3.9 - 5.3 cm LV Systolic Diameter PLAX 3.7 cm IVS Diastolic Thickness 1.1 cm 0.6 - 1.0 / 0.6 - 0.9 cm LVPW Diastolic Thickness 1.3 cm 0.6 - 1.0 / 0.6 - 0.9 cm LV Relative Wall Thickness 0.5 RV Internal Dim ED PLAX 2.4 cm LA Systolic Diameter LX 3.1 cm 3.0 - 4.0 / 2.7 - 3.8 cm M-MODE Aortic Root Diameter MM 3.4 cm MV E Point Septal Separation 0.8 cm DOPPLER MV Area PHT 2.4 cm??? Mitral E Point Velocity 46.8 cm/s Mitral A Point Velocity 75.0 cm/s Mitral E to A Ratio 0.6 MV Deceleration Time 318.5 ms TR Peak Velocity 202.9 cm/s TR Peak Gradient 16.5 mmHg Right Ventricular Systolic Press 21.5 mmHg FINDINGS Left Ventricle Normal left ventricular size, wall thickness, systolic function with no obvious regional wall motion abnormalities. The ejection fraction is visually estimated at 50-55 %. Right Ventricle The right ventricle is normal in size and function. Right Atrium The right atrium is normal in size. Left Atrium The left atrium is normal in size. Mitral Valve Structurally normal mitral valve without significant stenosis or prolapse. There is mild mitral regurgitation. Aortic Valve Structurally normal aortic valve without significant sclerosis or stenosis. There is no aortic regurgitation. Tricuspid Valve Structurally normal tricuspid valve without significant stenosis. Pulmonary artery systolic pressure is normal. Pulmonic Valve Structurally normal pulmonic valve without significant stenosis. There is no pulmonic regurgitation. Pericardium Echo free space anterior to the right ventricle likely represents a fat pad. Aorta Normal aortic root dimension. CONCLUSIONS Normal LV size and systolic function. Mild mitral and tricuspid regurgitation. Mild aortic sclerosis without restriction. No pericardial effusion but probably a fat pad noted Previewed by: Dr. Cristin Chavez MD (Electronically Signed) Final Date: 10 November 2021 11:07
--- NOTE | 2021-11-10 14:27 | P.PN ---
Subjective Patient was examined at bedside today he is awake alert complete 180 compared to yesterday. Patient is sitting in chair resting comfortably he was able to answer questions with some limitations however in good spirits. Patient was seen with neurologist and RN present at bedside. Caregiver was also present. Objective - Vital Signs Vital signs: Vital Signs Temp 97.4 F L 11/10/21 07:58 Pulse 88 11/10/21 07:58 Resp 16 11/10/21 08:10 BP 117/72 11/10/21 07:58 Pulse Ox 92 L 11/10/21 07:58 FiO2 Intake & Output 11/09/21 11/10/21 11/10/21 18:59 06:59 18:59 Output Total 600 100 Balance -600 -100 Output: Urine 600 100 Other: Voiding Method Indwelling Catheter Indwelling Catheter Indwelling Catheter - Exam General: No acute distress Head: atraumatic, normocephalic, symmetric Eyes: no lid lesion], anicteric sclera Mouth: no lip lesion, mucus membranes moist Cardiovascular: S1S2 reg rate and rhythm, no murmur, no gallop Lungs: Bilateral equal air entry, no wheezing no rhonchi no crackles. Abdominal: soft, nontender to palpation, no guarding, no appreciable organomegaly Ext: no gross muscle atrophy, no edema extremities warm to suppose a positive Neuro: Patient is in good spirits awake and alert - Labs CBC & Chem 7: 11/07/21 05:26 11/07/21 05:26 Labs: Abnormal Lab Results - Last 24 Hours (Table) 11/09/21 Range/Units 17:43 POC Glucose (mg/dL) 104 H (75-99) mg/dL Microbiology - Last 24 Hours (Table) 11/05/21 13:34 Blood Culture - Preliminary Blood No Growth after 96 hours 11/05/21 13:34 Blood Culture - Preliminary Blood No Growth after 96 hours Assessment and Plan Assessment: Acute alteration in mental status in patient with previously known history of memory impairments versus underlying NPH Patient has history of dementia and has episodes of sundowning and acute confusi on head and there but usually in the evening time provided this is the first time the episode happened in the daytime. Continue neuro checks every [address] brain and carotid ultrasound reviewed by myself and neurology. Stable Patient will need outpatient follow-up at this time family is refusing any intervention. Patient's mentation is also improved last 24 hours. Urine retention As per urology will need to continue with Peter catheter, Flomax on discharge and follow-up palpation. There was an episode where Peter catheter was removed and reinserted due to retention. Vitamin B12 and folate deficiency Continue replacement as mentioned above Chronic medical conditions include: Coronary artery disease GERD Dyslipidemia Hypertension Osteoarthritis Macular degeneration Short-term memory loss DVT prophylaxis: SCD Anticipated discharge date: 11/08/[address]: return to [facility]. CODE STATUS DNR/DNI Disposition: Patient will require prior authorization as per case management pending placement. Patient is cleared to be discharge from neurology and internal medicine perspective.
--- NOTE | 2021-11-10 16:32 | P.PN ---
Subjective Progress Note Date: 11/10/21 11/10/2021: Patient's significant other Ms Lerner was also present today. Patient is back to baseline. He is pleasantly confused. Patient able to recognize his girlfriend and her middle name Magalis. Patient is sitting in the recliner. Patient does not remember any event as of yesterday. 11/09/2021: Patient apparently had a similar episode of unresponsiveness that started at around 12:45 PM. Patient's family members were present at that time. They were having conversation, patient was given lunch, when he stopped responding, appeared as if he has gone to sleep. However he would not respond to calling his name. Later he was awake, but was very staring off in space. There was no seizure-like activity or shaking noted. I came to see the patient shortly. Patient was laying in the bed, keeping his eyes closed, and would not respond to calling his name. However when he was given nailbed pressure, he did wake up, but still could not speak at all. He then became very selective in his responses, as he would not let me touch him at all. He would actively move his hands away when I would ask him to make a tight depot agent. However he would respond to his girlfriend and is [id number]. She notices that his left depot agent was minimally weaker as compared to the right. However there was no pronator drift noted. Please refer to examination below. Telemetry monitoring was not on at that time. After it was started, patient was in sinus rhythm. His vitals were stable throughout this event. 11/08/2021: Patient was initially seen by Dr. Rene Vogel. Please refer to his note for details. Patient is an 86-year-old male with dementia, who had episode of confusion and could not talk. Patient underwent EEG and MRI of the brain. Patient's son Alcon was present. He believes patient's memory has gotten worse for last 2 years, progressively getting worse. He usually walks by himself without any assistance. He prefers not to use walker, as his son states that he is "stubborn". He lives with his girlfriend in [facility]. No report of urine control issues. Objective - Vital Signs Vital signs: Vital Signs Temp 97.6 F 11/10/21 16:17 Pulse 75 11/10/21 16:17 Resp 18 11/10/21 16:17 BP 138/72 11/10/21 16:17 Pulse Ox 94 L 11/10/21 16:17 FiO2 Intake & Output 11/09/21 11/10/21 11/10/21 18:59 06:59 18:59 Output Total 600 100 Balance -600 -100 Output: Urine 600 100 Other: Voiding Method Indwelling Catheter Indwelling Catheter Indwelling Catheter - Exam Patient is alert and awake, very pleasant, in no distress. Patient states is the month of January. Could not tell the year. He knows his girlfriend's first and middle name. Speech and language functions appear stable. Muscle strength is normal in the arms. His depot agent is equal bilaterally. Patient has positive palmomental reflex bilaterally. - Labs CBC & Chem 7: 11/07/21 05:26 11/07/21 05:26 Labs: Abnormal Lab Results - Last 24 Hours (Table) 11/09/21 Range/Units 17:43 POC Glucose (mg/dL) 104 H (75-99) mg/dL Microbiology - Last 24 Hours (Table) 11/05/21 13:34 Blood Culture - Preliminary Blood No Growth after 120 hours 11/05/21 13:34 Blood Culture - Preliminary Blood No Growth after 120 hours Assessment and Plan Assessment: * Episode of altered mental status, with decreased responsiveness. The second spell happened 11/09/2021 in the hospital (after the initial one just prior to presentation to the hospital). There was no convulsive activity noticed. Exam was relatively nonfocal although patient's [id number] noticed the g rip was slightly less in the left hand as compared to the right. A complex partial seizure versus TIA in the differential. * Normal pressure hydrocephalus * Advanced dementia. * Vitamin B12 deficiency * Folate deficiency * Urinary retention * CAD * Hypertension * Hyperlipidemia * Very hard of hearing. Plan: Patient today had two episodes of unresponsiveness (the first one just prior to arrival to the hospital and the second one yesterday). Now he is back to baseline. Differential diagnosis is between complex partial seizure versus TIA. Uncertain if related to his hydrocephalus. Repeat computed tomography scan of the head was performed 11/09/2021, which revealed similar moderate ventriculomegaly. Correlate for possible NPH. Carotid Doppler revealed no hemodynamic significant stenosis of the proximal ICA. Antegrade flow in both vertebral arteries. Normal rhythm. 2-D echo revealed normal left ventricular size and systolic function. Mild mitral and tricuspid regurgitation. Mild aortic sclerosis without restriction. Left atrial size is normal. Telemetry monitoring. Rhythm normal sinus. MRI of the brain 11/08/2021 revealed age-related atrophy, chronic small vessel ischemic changes. Correlate for possible normal pressure hydrocephalus. I personally reviewed MRI of the brain and agree with the findings. Patient has normal pressure hydrocephalus, however his dementia is very well advanced. Patient's family does not want any aggressive treatment at this time. They do not want neurosurgical consultation at this point. EEG 11/08/2021 was abnormal EEG due to background slowing of mild to moderate degree. This is suggestive of generalized cerebral dysfunction as can be seen with toxic metabolic encephalopathy or related to diffuse structural brain abnormality. Clinical correlation is recommended. No epileptiform activity was seen. No indication for antiepileptic medication, as EEG did not show any epileptiform activity. Vitamin B-12 is 218 on 08/17/2021 which is severely low normal normal supposed to be between 200-294. Continues his home dose 1000mcg PO daily mouth daily. Serum folate is 6.50 on 08/17/2021 and that's considered also low normal (4.4- 31.0). Continue folic acid 1 mg daily. Patient's dementia seems to be quite advanced. We will increase Aricept from 5 to 10 mg daily. He may benefit from addition of Namenda in the future. We will check a prolonged 2.5 hours EEG to rule out any epileptic activity. Rule out complex partial seizure. Discussed with primary physician in detail.
[2021-11-10] MEDS: TAMSULOSIN 0.4 MG CAP.ER.24H PO SCH (17:22)
[2021-11-10] MEDS: DONEPEZIL 10 MG TAB PO SCH (20:52)
[2021-11-10] MEDS: LATANOPROST 0.005% OPHTH DROPS 2.5 ML BTL BOTH EYES SCH (20:52)
[2021-11-11 03:56] LABS: Glucose,Whole Blood 116 mg/dL (70-110)
[2021-11-11 07:08] LABS: Glucose,Whole Blood 106 mg/dL (70-110)
[2021-11-11] MEDS: FOLIC ACID 1 MG TAB PO SCH (07:41)
[2021-11-11] MEDS: CYANOCOBALAMIN 500 MCG TAB PO SCH (07:41)
[2021-11-11] MEDS: ASPIRIN 81 MG PO SCH (07:41)
[2021-11-11] MEDS: lisinopriL 5 MG TAB PO SCH (07:42)
[2021-11-11] MEDS: TIMOLOL 0.25% OPHTH DROPS 5 ML BTL BOTH EYES SCH (07:42)
[2021-11-11 09:46] LABS: Glucose,Whole Blood 176 mg/dL (70-110)
--- NOTE | 2021-11-11 10:41 | P.DS ---
Providers Date of admission: 11/08/21 09:22 Expected date of discharge: 11/11/21 Attending physician: Eric Pedraza MD Consults: 11/05/21 16:12 Consult Physician Routine Consulting Provider: Matt Bell Consult Reason/Comments: Urinary retention Do you want consulting provider notified?: Yes, Notify in am 11/05/21 18:04 Consult Physician Routine Consulting Provider: Rene Vogel Consult Reason/Comments: altered mentation Do you want consulting provider notified?: Yes Primary care physician: Raul Hdez MD Hospital Course: Discharge Diagnosis: Acute alteration in mental status in patient with previously known history of memory impairments Reported loss of consciousness/decreased responsiveness, believed to be the result of complex seizure or TIA Urinary retention Vitamin B12 deficiency Folate deficiency Coronary artery disease GERD Dyslipidemia Hypertension Osteoarthritis Macular degeneration Short-term memory loss Hard of hearing secondary to progressive hearing loss with age Hospital Course: Patient is a 86-year-old male with history of coronary artery disease, GERD, hypertension, dyslipidemia, and dementia. He presented to the ER on 11/05/21 after being found by staff at [facility] with with decreased responsiveness. Per EMS report, pt was alert to sternal rub only. His glucose was 113 and on recheck 116 and vital signs were stable. Pt became more alert on the way to the ER. Upon arrival in the ER, he underwent full evaluation. His vital signs were stable. Laboratory and urinalysis were essentially unremarkable. Urine drug screen was normal. CT head s was negative for acute intracranial process. EKG showing normal sinus rhythm 65 bpm Chest x-ray was negative for acute cardiopulmonary process. Patient was found to have mild urinary retention and did have a Peter catheter placed with return of 600 mL of urine with hematuria present. Patient was admitted under our services with consultation to neurology and urology. Ultrasound kidneys, renal, and bladder was negative for acute process showing no evidence of solid renal mass or obstruction and revealing a left renal cortical cyst. Pt was seen and evaluated by urology, started patient on Flomax 0.4 mg and recommending continuation of Peter catheter and follow up outpatient for voiding challenge and removal of catheter. Patient also evaluated by neurology. EEG was completed suggestive of generalized cerebral dysfunction as can be seen with toxic metabolic encephalopathy related to diffuse structural brain abnormalities, no epileptiform activity was noted. MRI completed revealing age-related atrophy with chronic small vessel ischemic changes concerning for possible normal pressure hydrocephalus. Echocardiogram completed showing normal EF 50-55% with mild mitral and tricuspid regurgitation and mild aortic sclerosis without restriction. Repeat CT brain was completed showing similar moderate ventriculomegaly and negative for acute intercranial abnormalities. Neurology recommending prolonged EEG to rule out epileptic activity and complex partial seizures. Patient completed and will be reviewed by neurologist with reports to be sent to primary PCP. Neurology clearing patient for discharge prior to results of prolonged EEG. Blood cultures showing no growth after 144 hours.Patient is medically stable at this time, arrangements have been made for patient [place] [facility] [place] [facility] for rehabilitation upon discharge. Patient has received insurance authorization, clearance by urology and neurology and is medically stable for discharge at this time. Patient approved for rehab and nurse case management and [employer] liason discussed with patient and patient's son at bedside. Patient discharged to SNF and follow up outpatient with PCP, neurology, and urology. Physical examination: Vital signs reviewed General: non toxic, no distress, appears at stated age Derm: warm, dry Head: atraumatic, normocephalic, symmetric. Heart of hearing Eyes: EOMI, no lid lag, anicteric sclera, pupils equal round reactive to light ENT: Nose and ears atraumatic, no thrush, no pharyngeal erythema Neck: No cervical lymphadenopathy, trachea midline, supple Mouth: no lip lesion, mucus membranes moist Cardiovascular: S1S2 reg, no murmur, positive posterior tibial pulse bilateral, no edema, capillary refill less than 2 seconds Lungs: clear to ascultation bilateral, no ronchi, no rales, no wheeze, no accessory muscle use Abdominal: soft, nontender to palpation, no guarding, no appreciable organomegaly, normal bowel sounds Ext: no gross muscle atrophy, muscle strength muscle strength 4 out of 5 in all 4 extremities, no contractures Neuro: CN II-XII grossly intact, movement and sensation intact. Psych: Alert, oriented to person and place only, appropriate affect, calm and cooperative A total of 38 minutes of time were spent preparing this complex discharge summary. Pt was discharged on 11/11/21 at 11:14 AM. Patient Condition at Discharge: Stable Plan - Discharge Summary New Discharge Prescriptions: New Donepezil [Aricept] 10 mg PO HS tab Folic Acid 1 mg PO DAILY tab Melatonin 3 mg PO HS PRN tab PRN Reason: Insomnia bisacodyL [Dulcolax] 5 mg PO DAILY PRN tab PRN Reason: Constipation Tamsulosin [Flomax] 0.4 mg PO PC-SUPPER cap Acetaminophen Tab [Tylenol] 650 mg PO Q6HR PRN tab PRN Reason: Mild Pain Or Fever > 100.5 Cyanocobalamin [Vitamin B-12] 1,000 mcg PO DAILY tab Continue Loratadine [Claritin] 10 mg PO DAILY Ferrous Sulfate [Iron (65 MG Elemental)] 325 mg PO DAILY Aspirin [Adult Low Dose Aspirin EC] 81 mg PO DAILY Timolol 0.25% Ophth Soln [Timoptic 0.25% Ophth Soln] 1 drop BOTH EYES DAILY Latanoprost/Pf [Latanoprost 0.005% Eye Drop] 1 drop BOTH EYES HS lisinopriL [Zestril] 5 mg PO DAILY Naproxen Sodium [Aleve] 220 mg PO BID Discontinued Donepezil HCl [Aricept] 5 mg PO HS Discharge Medication List Loratadine [Claritin] 10 mg PO DAILY 07/16/18 [History] Aspirin [Adult Low Dose Aspirin EC] 81 mg PO DAILY 12/21/18 [History] Ferrous Sulfate [Iron (65 MG Elemental)] 325 mg PO DAILY 12/21/18 [History] Latanoprost/Pf [Latanoprost 0.005% Eye Drop] 1 drop BOTH EYES HS 06/05/19 [History] Timolol 0.25% Ophth Soln [Timoptic 0.25% Ophth Soln] 1 drop BOTH EYES DAILY 06/05/19 [History] lisinopriL [Zestril] 5 mg PO DAILY 06/05/19 [History] Naproxen Sodium [Aleve] 220 mg PO BID 11/05/21 [History] Acetaminophen Tab [Tylenol] 650 mg PO Q6HR PRN tab 11/11/21 [Rx] Cyanocobalamin [Vitamin B-12] 1,000 mcg PO DAILY tab 11/11/21 [Rx] Donepezil [Aricept] 10 mg PO HS tab 11/11/21 [Rx] Folic Acid 1 mg PO DAILY tab 11/11/21 [Rx] Melatonin 3 mg PO HS PRN tab 11/11/21 [Rx] Tamsulosin [Flomax] 0.4 mg PO PC-SUPPER cap 11/11/21 [Rx] bisacodyL [Dulcolax] 5 mg PO DAILY PRN tab 11/11/21 [Rx] Follow up Appointment(s)/Referral(s): Raul Hdez MD [Primary Care Provider[facility] - As Needed Yaa De Oliveira MD [REFERRING] - 1 Week Matt Bell MD [STAFF PHYSICIAN] - 2 Weeks Activity/Diet/Wound Care/Special Instructions: Activity: As tolerated. Take breaks as needed. Diet: Heart healthy and carb consistent diet. Avoid salts, or foods with hidden salts such as canned or boxed foods and frozen dinners. Extra salt makes your heart work harder and traps the fluid in your body for longer. Special Instructions: Take all of your medications as directed and remember to keep all of your doctor's appointments and follow-up as needed. You are being discharged home with a Peter catheter in place, he will need to follow up outpatient with urology for voiding challenge and removal of catheter. Thank you for allowing us to participate in your care, it was truly a pleasure having you for our patient!!! Discharge Disposition: TRANSFER TO SNF/ECF
[2021-11-11 15:05] VITALS: BP 109/63; PULSE 76; RESP 21; TEMP 98.2
--- NOTE | 2021-11-11 21:32 | EEG ---
ELECTROENCEPHALOGRAM REPORT PROCEDURE DATE: 11/11/2021. ELECTROENCEPHALOGRAM (EEG): TECHNIQUE: This is a report from a prolonged 2.5 hour inpatient digital video EEG performed using the 10/20 international electrode placement system. HISTORY: Altered mental status, confusion. OTHER MEDICAL HISTORY: Includes coronary artery disease, memory impairment, hyperlipidemia, hypertension. CURRENT MEDICATIONS: Tylenol, aspirin, Dulcolax, vitamin B12, Aricept, folic acid, Zestril, melatonin, Flomax, Timoptic. FINDINGS: Recording start time: 11/11/2021 at 11:57 am. Recording end time: 11/11/2021 at 14:28. EVENTS: During this 2.5 hour continuous video EEG, no clinical or electrographic seizures were recorded. BACKGROUND: The background activity consisted of 5-6 hertz rhythmic waveforms symmetrically seen through both posterior quadrants. ACTIVATION: Hyperventilation: Not performed. Photic stimulation: No driving seen. Sleep: Stages I and II sleep noted. ABNORMALITIES: Diffuse 4-6 hertz theta range slowing was seen with at times greater focality of the left frontotemporal region. IMPRESSION: Abnormal 2.5 hour video EEG. No clinical or electrographic seizures were recorded. No epileptiform activity was present. The diffuse theta range slowing mentioned above is not epileptiform in nature. As mentioned, at times, it demonstrated slightly greater focality of the left frontotemporal region. These findings indicate moderate diffuse cerebral dysfunction with greater involvement of the left frontotemporal region. No seizures were recorded. No epileptiform activity was present. These findings were called to the neurologist taking care of the patient on 11/11/2021. MMNBAL / JASON: [id number] /
--- NOTE | 2021-11-27 16:58 | P.PN ---
Subjective Progress Note Date: 11/11/21 11/11/2021: Patient is laying comfortably in the bed. Patient offers no complaints. Patient is undergoing 2.5 hours prolonged EEG. No further episodes of confusion. Telemetry monitoring showing ectopic, PVC, some couplets, bigeminy heart rate in around 70-80. No atrial fib. 11/10/2021: Patient's significant other Ms Lerner was also present today. Patient is back to baseline. He is pleasantly confused. Patient able to recognize his girlfriend and her middle name Magalis. Patient is sitting in the recliner. Patient does not remember any event as of yesterday. 11/09/2021: Patient apparently had a similar episode of unresponsiveness that started at around 12:45 PM. Patient's family members were present at that time. They were having conversation, patient was given lunch, when he stopped responding, appeared as if he has gone to sleep. However he would not respond to calling his name. Later he was awake, but was very staring off in space. There was no seizure-like activity or shaking noted. I came to see the patient shortly. Patient was laying in the bed, keeping his eyes closed, and would not respond to calling his name. However when he was given nailbed pressure, he did wake up, but still could not speak at all. He then became very selective in his responses, as he would not let me touch him at all. He would actively move his hands away when I would ask him to make a tight pantograph engraver. However he would respond to his girlfriend and is [id number]. She notices that his left pantograph engraver was minimally weaker as compared to the right. However there was no pronator drift noted. Please refer to examination below. Telemetry monitoring was not on at that time. After it was started, patient was in sinus rhythm. His vitals were stable throughout this event. 11/08/2021: Patient was initially seen by Dr. Rene Vogel. Please refer to his note for details. Patient is an 86-year-old male with dementia, who had episode of confusion and could not talk. Patient underwent EEG and MRI of the brain. Patient's son Alcon was present. He believes patient's memory has gotten worse for last 2 years, progressively getting worse. He usually walks by himself without any assistance. He prefers not to use walker, as his son states that he is "stubborn". He lives with his girlfriend in [facility]. No report of urine control issues. Objective - Vital Signs Vital signs: Vital Signs Temp 98.2 F 11/11/21 14:56 Pulse 76 11/11/21 14:56 Resp 21 11/11/21 14:56 BP 109/63 11/11/21 14:56 Pulse Ox 93 L 11/11/21 14:56 FiO2 Intake & Output 11/10/21 11/11/21 11/11/21 18:59 06:59 18:59 Intake Total 360 Output Total 800 325 250 Balance -800 -325 110 Intake: Oral 360 Output: Urine 800 325 250 Other: Voiding Method Indwelling Catheter Indwelling Catheter Indwelling Catheter - Exam Patient is alert and awake, very pleasant, in no distress. Patient states it is the month of January. Could not tell the year. He knows his girlfriend's first and middle name. Speech and language functions appear stable. Muscle strength is normal in the arms. His pantograph engraver is equal bilaterally. Patient has positive palmomental reflex bilaterally. - Labs CBC & Chem 7: 11/07/21 05:26 11/07/21 05:26 Labs: Abnormal Lab Results - Last 24 Hours (Table) 11/11/21 11/11/21 Range/Units 03:55 09:44 POC Glucose (mg/dL) 116 H 176 H (70-110) mg/dL Microbiology - Last 24 Hours (Table) 11/05/21 13:34 Blood Culture - Final Blood No Growth after 144 hours 11/05/21 13:34 Blood Culture - Final Blood No Growth after 144 hours Assessment and Plan Assessment: * Episode of altered mental status, with decreased responsiveness. The second spell happened 11/09/2021 in the hospital (after the initial one just prior to presentation to the hospital). There was no convulsive activity noticed. Exam was relatively nonfocal although patient's [id number] noticed the pantograph engraver was slightly less in the left hand as compared to the right. A complex partial seizure versus TIA in the differential. * Normal pressure hydrocephalus * Advanced dementia. * Vitamin B12 deficiency * Folate deficiency * Urinary retention * CAD * Hypertension * Hyperlipidemia * Very hard of hearing. Plan: Patient today had two episodes of unresponsiveness (the first one just prior to arrival to the hospital and the second one 11/09/2021 while in the hospital). Now he is back to baseline. Differential diagnosis is between complex partial seizure versus TIA. Uncertain if related to his hydrocephalus. Repeat computed tomography scan of the head was performed 11/09/2021, which revealed similar moderate ventriculomegaly. Correlate for possible NPH. Carotid Doppler revealed no hemodynamic significant stenosis of the proximal ICA. Antegrade flow in both vertebral arteries. Normal rhythm. 2-D echo revealed normal left ventricular size and systolic function. Mild mitral and tricuspid regurgitation. Mild aortic sclerosis without restriction. Left atrial size is normal. Telemetry monitoring. Rhythm normal sinus. MRI of the brain 11/08/2021 revealed age-related atrophy, chronic small vessel ischemic changes. Correlate for possible normal pressure hydrocephalus. I personally reviewed MRI of the brain and agree with the findings. Patient has normal pressure hydrocephalus, however his dementia is very well advanced. Patient's family does not want any aggressive treatment at this time. They do not want neurosurgical consultation at this point. EEG 11/08/2021 was abnormal EEG due to background slowing of mild to moderate degree. This is suggestive of generalized cerebral dysfunction as can be seen with toxic metabolic encephalopathy or related to diffuse structural brain abnormality. Clinical correlation is recommended. No epileptiform activity was seen. No indication for antiepileptic medication, as EEG did not show any epileptiform activity. Vitamin B-12 is 218 on 08/17/2021 which is severely low normal normal supposed to be between 200-294. Continues his home dose 1000mcg PO daily mouth daily. Serum folate is 6.50 on 08/17/2021 and that's considered also low normal (4.4- 31.0). Continue folic acid 1 mg daily. Patient's dementia seems to be quite advanced. We will increase Aricept from 5 to 10 mg daily. He may benefit from addition of Namenda in the future. Patient has undergone 2.5 hours prolonged EEG, the results are pending at the ti me of discharge. Discussed with Dr. Barcenas in detail. Addendum: 11/27/2021 4:55 PM Patient underwent 2.5 hour EEG to evaluate for any epileptic activity. it was abnormal due to 15 hour EEG. No clinical or electrographic seizures were recorded. No epileptiform activity was present. The diffuse theta range slowing mentioned above is not epileptiform in nature. As mentioned, at times, he demonstrated slightly greater focality of the left frontotemporal region. These findings indicate moderate diffuse cerebral dysfunction with greater involvement of the left frontotemporal region. No seizures were recorded. No epileptiform activity was present. I spoke to patient's significant other Eduarda, on the phone, informed about the result of prolonged EEG. She wanted me to speak to patient's son Alcon. I called their number, and patient's [id number] Karly picked up the phone. Informed her about the results. He has been stable in [facility], coming back home this 12/01/2021. I recommended patient follow up with neurologist, but she believes that he is 87 years old, does not want him to undergo any more testing. They just want him to be comfortable at this age.
== END 2021-11-11 16:41 | DRG 56 ==
LOC: EC 13:06 → 4SSUR 16:16 → OBSVTOIN 11-08 09:22
PROVIDERS: ADMIT Internal Medicine; ATTEND Internal Medicine
PROC: 4A10X4Z Monitoring of Central Nervous Electrical Activity, External Approach (ICD-10-PCS; principal; 2021-11-08)
DX: G30.1 Alzheimer's disease with late onset (principal); G92.8 Other toxic encephalopathy; G91.2 (Idiopathic) normal pressure hydrocephalus; G45.9 Transient cerebral ischemic attack, unspecified; J98.11 Atelectasis; R33.9 Retention of urine, unspecified; I10 Essential (primary) hypertension; Z66 Do not resuscitate; E78.5 Hyperlipidemia, unspecified; I25.10 Atherosclerotic heart disease of native coronary artery without angina pectoris; E53.8 Deficiency of other specified B group vitamins; F02.80 Dementia in other diseases classified elsewhere, unspecified severity, without behavioral disturbance, psychotic disturbance, mood disturbance, and anxiety; R56.9 Unspecified convulsions; I70.0 Atherosclerosis of aorta; E16.2 Hypoglycemia, unspecified; I08.3 Combined rheumatic disorders of mitral, aortic and tricuspid valves; G93.89 Other specified disorders of brain; K21.9 Gastro-esophageal reflux disease without esophagitis; H35.30 Unspecified macular degeneration; H91.93 Unspecified hearing loss, bilateral; I49.3 Ventricular premature depolarization; Z79.82 Long term (current) use of aspirin; Z79.899 Other long term (current) drug therapy; Z82.3 Family history of stroke; Z82.5 Family history of asthma and other chronic lower respiratory diseases; Z96.651 Presence of right artificial knee joint
CPT/HCPCS: 36415; 70450; 70553; 71046; 76770; 80048; 80053; 80306; 80320; 81001; 82140; 83605; 83735; 84443; 84484; 85025; 85027; 85610; 85730; 87040; 93005; 93306; 93880; 95713; 95816; 96360; 96361; 99285